=== PATIENT | male | born 1950 | race Caucasian/White ===

== ENCOUNTER 2019-06-20 14:51 | Outpatient (CLI) | payer MEDICARE, SELFPAY ==
--- NOTE | ~2019-06-20 | XR_ITS ---
EXAMINATION: XR lumbar spine 2-3V EXAM DATE: 06/20/2019 15:27 INDICATION: Dorsalgia, low back pain, symptoms one month. TECHNIQUE: Lumber spine frontal, lateral, lateral L5-S1 projections for interpretation. There is no prior study for comparison. FINDINGS: There is moderate to severe disc disease at L2-3, moderate at L1-2, mild to moderate at th e lower lumbar levels. There is advanced lower lumbar facet arthropathy. Mild thoracolumbar scoliosis . Sacrum, sacroiliac joints, sacral arcuate lines are intact. Paraspinal soft tissue is unremarkable. IMPRESSION: 1. Advanced disc disease L2-3. 2. Advanced lower lumbar facet arthropathy. Reviewed, dictated and finalized at location A.
== END 2019-06-20 14:52 | disposition home or self-care (01) ==
PROVIDERS: PCP Internal Medicine; Visit Provider Internal Medicine
DX: M54.9 Dorsalgia, unspecified (principal); M51.86 Other intervertebral disc disorders, lumbar region; M12.88 Other specific arthropathies, not elsewhere classified, other specified site
CPT/HCPCS: 72100

== ENCOUNTER 2019-06-23 14:20 | Outpatient (CLI) | payer MEDICARE, SELFPAY ==
--- NOTE | ~2019-06-23 | US_ITS ---
EXAMINATION: US soft tissue lower back DATE: 06/23/2019 14:49 INDICATION: Palpable lump with associated erythema at the right lower back TECHNIQUE: Multiple grayscale and Doppler ultrasound images of the region of concern at the right low er back were obtained. COMPARISON: None FINDINGS: There is a 1.3 x 1.0 x 1.5 cm hypoechoic region with lobular margins in the subcutaneous fat at the r egion of concern. The lesion demonstrates posterior acoustic enhancement. There is increased vascular flow on color Doppler surrounding but not within the lesion. IMPRESSION: 1. 1.3 x 1.0 x 1.5 cm complex cystic lesion in the subcutaneous tissues at the region of concern whic h given the associated hyperemia and erythema favors a small abscess over either hematoma or epidermo id cyst. Reviewed, dictated and finalized at location A. IMPRESSION: 1. 1.3 x 1.0 x 1.5 cm complex cystic lesion in the subcutaneous tissues at the region of concern which given the associated hyperemia and erythema favors a sm all abscess over either hematoma or epidermoid cyst.
== END 2019-06-23 14:21 | disposition home or self-care (01) ==
PROVIDERS: PCP Internal Medicine; Visit Provider Internal Medicine
DX: M79.89 Other specified soft tissue disorders (principal)
CPT/HCPCS: 76705

== ENCOUNTER 2020-05-11 14:51 | Observation (INO) | payer MEDICARE, SELFPAY ==
[2020-05-11] VITALS (17 sets, daily range): BP systolic 116–170; BP diastolic 74–99; PULSE 54–74; RESP 15–22; TEMP 35.7–36.3; O2SAT 94–98; BMI 29.5
--- NOTE | ~2020-05-11 | XR_ITS ---
EXAMINATION: XR chest 2V EXAM DATE: 05/11/2020 15:20 INDICATION: Midsternal chest pain for 2 days. TECHNIQUE: Frontal and lateral projections of the chest obtained and reviewed. There is no prior radha dy for comparison. FINDINGS: The lungs are clear. There are no pleural effusions. The cardiomediastinal silhouette is within normal limits. There is no pneumothorax suspected. Moderate-sized mid thoracic endplate brid ging osteophytes, diffuse idiopathic skeletal hyperostosis. IMPRESSION: No acute cardiopulmonary findings. Reviewed, dictated and finalized at location A.
--- NOTE | ~2020-05-11 | NM_ITS ---
EXAMINATION: NM jero stress w perfusion DATE: 05/13/2020 13:56 INDICATION: Atypical chest pain TECHNIQUE: Rest images were obtained in supine following intravenous administration of 10.5 mCi Tc99m tetrofosmin (Myoview). The patient was infused intravenously with Lexiscan (Regadenoson). Then, 32 m Ci Tc99m tetrofosmin (Myoview) was administered intravenously, and stress images were obtained and vargas pine position. Additional prone post stress images were obtained. Data was reconstructed into short a xis and horizontal and vertical long axis SPECT images. Gated SPECT images were also obtained. COMPARISON: None. FINDINGS: There is no definite reversible or fixed perfusion abnormality to suggest ischemia or infar ction. There is normal left ventricular chamber size, wall motion and ejection fraction. Left ventr icular ejection fraction measures >70%. IMPRESSION: 1. Normal myocardial perfusion at rest and during stress. 2. Left ventricular ejection fraction measuring >70%. Reviewed, dictated and finalized at location A.
--- NOTE | 2020-05-11 15:01 | ECG_ITS ---
Measurements Intervals [place] Rate: 66 P: 48 NC: 170 QRS: 32 QRSD: 110 T: 45 QT: 399 QTc: 421 Interpretive Statements SINUS RHYTHM VOLTAGE CRITERIA FOR LVH MINIMAL Q WAVES- INFERIOR LEADS BASELINE WANDER- III, AVF, V2 BORDERLINE ECG Electronically Signed On 05-11-2020 15:21:18 CDT by Tobin Crawford D.O.
[2020-05-11 15:18] LABS: Basophils Percent Auto 0.4 % (0.2-1.2); Eosinophils Absolute Auto 0.2 K/mm3 (0-0.3); Eosinophils Percent Auto 3.8 % (0-4.4); Hematocrit 39.1 % (42.0-52.0); Hemoglobin 13.2 g/dL (14.0-18.0); Immature Granulocyte Absolute 0.02 K/mm3 (0.00-0.031); Immature Granulocyte Percent A 0.4 % (0-0.5); Lymphocytes Absolute Auto 1.11 K/mm3 (0.9-3.2); Mean Corpuscular HGB Conc 33.8 g/dl (32-36); Mean Corpuscular Hemoglobin 31.7 pg (26-34); Mean Corpuscular Volume 93.8 fl (80-100); Mean Platelet Volume 9.7 fl (7.4-10.4); Monocytes Absolute Auto 0.5 K/mm3 (0.1-0.6); Monocytes Percent Auto 8.8 % (2.6-8.5); Neutrophils Absolute Auto 3.7 K/mm3 (1.3-6.7); Neutrophils Percent Auto 66.6 % (45.5-73.1); Platelet Count Result 216 k/mm3 (150-375); Red Blood Count 4.17 M/mm3 (4.6-6.20); Red Cell Distribution Width 12.8 % (11.5-14.5); White Blood Count 5.6 K/mm3 (4.5-10.0)
[2020-05-11 15:28] LABS: INR 0.9; Prothrombin Time 12.5 Seconds (11.1-14.7)
[2020-05-11 15:29] LABS: Partial Thromboplastin Time 29.3 SECONDS (22.3-36.8)
[2020-05-11 15:30] LABS: Anion Gap 8 mmol/L (8-16); Blood Urea Nitrogen 27 mg/dL (9-20); Calcium 8.6 mg/dL (8.4-10.2); Carbon Dioxide 25 mmol/L (22-30); Chloride 107 mmol/L (98-107); Estimated CRCL calculation 53 ml/min; Estimated Glomerular Filt Rate 54; Glucose 140 mg/dL (75-110); Potassium 3.7 mmol/L (3.4-5.0); Sodium 140 mmol/L (137-145)
--- NOTE | 2020-05-11 15:32 | ED.CHESTPAIN ---
HPI - Chest Pain General Chief Complaint: Chest Pain Stated Complaint: CHEST PAIN Time Seen by Provider: 05/11/20 15:21 Source: patient, family and RN notes reviewed Mode of arrival: ambulatory Limitations: no limitations History of Present Illness HPI narrative: Patient 70 years old white male presents with retrosternal pressure type pain started yesterday at noon, intermittent, denies any aggravating or relieving factors, comes at rest and usually last for hours. Patient denying having similar symptoms. Patient denies shortness of breath. Currently the pain is 5 out of 10. Patient denies radiation of pain or shortness of breath. Patient denies any fever, chills, nausea, vomiting. Patient reports some stress at home because his [id number] 2 years ago. Related Data Allergies Allergy/AdvReac Type Severity Reaction Status Date / Time No Known Allergies Allergy Verified 05/11/20 15:07 Review of Systems Review of Systems: Narrative: CONSTITUTIONAL: Denies fever, chills, or sweats. EYES: Denies visual changes, redness, or discharge. ENT: Denies rhinorrhea, congestion, sore throat, or otalgia. CARDIOVASCULAR: Denies chest pain, palpitations, or edema. RESPIRATORY: Denies cough or dyspnea. GASTROINTESTINAL: Denies abdominal pain, nausea, vomiting, or diarrhea. GENITOURINARY: Denies dysuria or hematuria. SKIN: Denies rash or itching. MUSCULOSKELETAL: Denies back pain, joint pain, or myalgia. NEUROLOGIC: Denies headache, numbness, or weakness. PSYCHIATRIC: Denies anxiety or depression. [facility] Past Medical History Medical History (Updated 05/11/20 @ 15:44 by Lex Buchanan MD) History of blood transfusion History of stomach cancer Surgical History Surgical History H/O inguinal hernia repair x2 History of surgery for malignant neoplasm of the stomach Hx of cataract surgery Family History Family History Mother Hypertension Father Family history of malignant neoplasm of thyroid Social History Social History Smoking status: Former smoker Second hand tobacco smoke exposure: No Smoking end date: 02/16/08 Alcohol intake: current Substance use: never Gender identity (if verbalized by the patient): Male Exam Narrative: Exam Narrative: General appearance: Well-developed, well-nourished Skin: Normal color Head: Normocephalic, nontraumatic Eyes: Clear conjunctiva ENT: Oropharynx normal, ears normal, nose normal Neck: Supple, nontender Chest and respiratory: Airway patent, no respiratory distress, no accessory muscle use Heart: Regular rate/rhythm Abdomen: Soft, nontender, no organomegaly, quiet bowel sounds Vascular: Normal peripheral pulses, normal capillary refill. Musculoskeletal: Normal range of motion, nontender back Neurologic: Alert and oriented ?3, CONSERVATION TECHNICIAN is normal as tested, no gross motor deficit Course Course Emergency Course: Stable Consultations Consultation #1: DR PIMENTEL Admit to Dr. Neumann Date: 05/11/20 Time: 16:25 Vital Signs Vital signs: Vital Signs Pulse Rate 68 05/11/20 15:00 Respiratory Rate 21 H 05/11/20 15:00 Blood Pressure 170/99 H 05/11/20 15:00 Pulse Oximetry 98 05/11/20 15:00 Temperature 35.7 C L 05/11/20 15:02 Pulse Rate 65 05/11/20 15:16 Respiratory Rate 22 H 05/11/20 15:15 Blood Pressure 163/90 H 05/11/20 15:02 Pulse Oximetry 97 05/11/20 15:15 MDM - Chest Pain MDM Narrative Medical decision making narrative: Patient presents with chest pain, cardiac score is 4, patient is [id number] moved in with them
[2020-05-11 15:41] LABS: Troponin I < 0.012 ng/mL (0.000-0.034)
[2020-05-11] MEDS: NITROGLYCERIN SL 0.4 MG TABLET SUBLINGUAL ×2 (15:58→16:05)
--- NOTE | 2020-05-11 16:10 | PC.NURSE ---
Pt given 2 doses of SL nitro tabs. After 1st tab, pt denied change in chest pain. After 2nd tab, pt reports pain may be a little bit worse . ED MD notified.
--- NOTE | 2020-05-11 16:49 | PC.NURSE ---
2x doses of nitro tabs SL. pt c/o worsening pain after 2nd nitro tab. md notified.
--- NOTE | 2020-05-11 17:27 | PC.NURSE ---
pt to IMU Room 214
--- NOTE | 2020-05-11 17:46 | ADMGEN ---
This patient, Zechariah Velez, was admitted to IMU Room 214-01. Patient/family oriented to hospital policies and general routines including ID bracelet, bed and alarms, visiting hours, pain management, procedures, bathroom and other care routines, personal items, smoking policy, room service/diet, and visiting hours. Information on how to activate the Rapid Response Team has been discussed. Patient/Family are encouraged to report perceived risks to care and to ask questions if they do not understand what they are told or what they should do.
[2020-05-11 18:34] LABS: Troponin I < 0.012 ng/mL (0.000-0.034)
[2020-05-11 21:26] LABS: Troponin I < 0.012 ng/mL (0.000-0.034)
[2020-05-11] MEDS: PROPRANOLOL HCL 40 MG TABLET PO (22:36)
[2020-05-11] MEDS: DICLOFENAC SOD 75 MG TABLET.EC PO (22:36)
[2020-05-12] VITALS (20 sets, daily range): BP systolic 138–175; BP diastolic 76–99; PULSE 47–68; RESP 12–18; TEMP 36.2–36.8; O2SAT 95–100
--- NOTE | 2020-05-12 06:00 | ECG_ITS ---
Measurements Intervals [place] Rate: 61 P: 68 IN: 170 QRS: 48 QRSD: 97 T: 57 QT: 414 QTc: 418 Interpretive Statements SINUS RHYTHM NORMAL ECG Electronically Signed On 05-12-2020 16:25:10 CDT by Tobin Crawford D.O.
[2020-05-12] MEDS: DICLOFENAC SOD 75 MG TABLET.EC PO ×2 (08:01→16:02)
[2020-05-12] MEDS: ASPIRIN 81 MG CHEWABLE TABLET PO (08:01)
[2020-05-12] MEDS: PROPRANOLOL HCL 40 MG TABLET PO (08:01)
--- NOTE | 2020-05-12 10:21 | ECG_ITS ---
Measurements Intervals [place] Rate: 46 P: 60 RI: 172 QRS: 30 QRSD: 93 T: 46 QT: 438 QTc: 386 Interpretive Statements SINUS BRADYCARDIA BASELINE ARTIFACT- II, III, AVF ABNORMAL ECG Electronically Signed On 05-12-2020 16:25:41 CDT by Tobin Crawford D.O.
--- NOTE | 2020-05-12 10:23 | PC.NURSE ---
Notified Dr. Neumann of patient having chest/arm pain. Verbal order for 12 lead EKG to be obtained, vital signs- BP- 165/99 HR- 49. EKG taken and Dr. Neumann stated it was normal and at bedside evaluating patient.
--- NOTE | 2020-05-12 10:33 | PM.IMHP ---
H&P: HPI History of Present Illness Date/Time: 05/12/20 10:33 Chief Complaint: Chest pain Narrative: Date of service 05/12/2020 Reason for admission chest pain History: Patient is a 70-year-old male who has been having 2 days worth of chest pain. He has no known cardiac history and has very few risk factors for coronary disease either. Two days ago though he started to develop some anterior chest discomfort described as heaviness. It did not radiate nor associated with other symptoms. It lasted for couple hours and went away after taking a diclofenac. It occurred while sitting around. This was after a that he took his mother to. Yesterday he however woke up with similar discomfort. He describes it as a heaviness again. He again took diclofenac without much relief at that point. After several hours he decided to come to the hospital for further evaluation. EKGs were unremarkable. Troponins are negative x3. He was given nitroglycerin without any relief. He then was given another diclofenac which did help his symptoms. He was able to rest the remainder of the evening last night. Today however he has again redeveloped some heaviness in the chest. Today the discomfort is going into the right arm. EKG recently performed showing sinus bradycardia otherwise normal. Symptoms this morning was helped by diclofenac and IV Tylenol. Again no other symptoms of nausea shortness of breath or diaphoresis. He has no exertional symptoms recently. He denies any syncope, presyncope, paroxysmal nocturnal dyspnea, orthopnea, edema or palpitations or shortness of breath. Review of Systems Review of Systems: All systems reviewed & are unremarkable except as noted in HPI and below Constitutional: Constitutional: Denies weakness Eyes: Eyes: Denies blurry vision ENT: Reports Normal hearing present Cardiovascular: Cardiovascular: Reports chest pain Respiratory: Respiratory: Denies dyspnea Gastrointestinal: Gastrointestinal: Denies abdominal pain Genitourinary: Genitourinary: Denies dysuria and Denies urinary frequency Musculoskeletal: Musculoskeletal: Denies back pain and Denies neck pain Integumentary/Breasts: Skin/Breast: Denies dry skin and Denies unusual bruising Neurologic: Denies headache(s) Psychiatric: Psychiatric: Denies anxiety and Denies confusion Endocrine: Endocrine: Denies change in body appearance Hematologic/Lymphatic: Hematologic/Lymphatic: Denies easy bleeding Allergic/Immunologic: Allergic/Immunologic: Denies GI upset with certain foods PMFSH Past Medical History Medical History (Updated 05/12/20 @ 10:42 by Andrea Neumann MD) History of blood transfusion History of stomach cancer Surgical History Surgical History H/O inguinal hernia repair x2 History of surgery for malignant neoplasm of the stomach Hx of cataract surgery Family History Family History Mother Hypertension Father Family history of malignant neoplasm of thyroid Social History Social History Smoking status: Never smoker Second hand tobacco smoke exposure: No Smoking end date: 02/16/08 Alcohol intake: current Drinks per week: 14 Substance use: never Substance use type: does not use Gender identity (if verbalized by the patient): Male Spiritual care concerns: No Meds Home Medications and Allergies Home Medications Medication Instructions Recorded Confirmed Type diclofenac sodium 75 mg 75 mg PO BID #180 tablet 01/30/20 05/11/20 Rx tablet,delayed release propranolol 80 mg capsule,24 80 mg PO DAILY #90 cap 04/16/20 05/11/20 Rx hr,extended release Allergies Allergy/AdvReac Type Severity Reaction Status Date / Time No Known Allergies Allergy Verified 05/11/20 15:07 Vital Signs Vital Signs - 24 hr 05/11/20
[2020-05-12] MEDS: ENOXAPARIN 40 MG/0.4 ML SYRINGE SUB-Q (11:17)
[2020-05-12] MEDS: LOSARTAN POTASSIUM 25 MG TABLET PO (11:17)
[2020-05-12] MEDS: PANTOPRAZOLE 40 MG TABLET PO (11:17)
[2020-05-12] MEDS: BELLADONNA ALK/PHENOB ELIX 10 ML, MAG HYDROX/ALUMINUM HYD/SIMETH 30 ML, LIDOCAINE HCL 2... PO (11:18)
[2020-05-12 11:32] LABS: Troponin I < 0.012 ng/mL (0.000-0.034)
--- NOTE | 2020-05-12 15:01 | PC.NURSE ---
Notified Dr. Neumann of pts HR hitting 48. No new orders were received. Will continue to monitor pt HR.
[2020-05-13] VITALS (12 sets, daily range): BP systolic 140–173; BP diastolic 76–97; PULSE 51–78; RESP 16–20; TEMP 35.9–36.4; O2SAT 96–100
--- NOTE | 2020-05-13 | EST_ITS ---
Patient Info Name: Zechariah Velez Age: 70 years : 1950 Gender: Male Ht: 74 in Wt: 229 lbs BSA: 2.35 m2 Exam Date: 05/13/2020 12:51 PM Exam Location: [facility] Stress Patient Status: Inpatient Admit Date: 05/11/2020 Staff Ordering Physician: Andrea Neumann MD Attending Provider: Andrea Neumann MD Exercise Technologist: Jaylene Verma RDCS Exercise Physician: Andrea Neumann MD Exam Type: CA stress jero w NM Study Info Indications R07.9 - Chest pain, unspecified A regadenoson stress test was performed. Summary 1. One PVC. 2. Please correlate with nuclear medicine images, reported separately. 3. No abnormal ST-T wave changes with lexiscan. Protocol: Lexiscan Stress ECG Details Stage: REST Duration (min): 1 min : 40 sec HR (bpm): 62 SBP (mmHg): 208 DBP (mmHg): 117 Stage: REST Duration (min): 5 min : 23 sec HR (bpm): 66 SBP (mmHg): 208 DBP (mmHg): 117 Stage: STAGE 1 Duration (min): 1 min : 0 sec HR (bpm): 87 SBP (mmHg): 208 DBP (mmHg): 117 Stage: RECOVERY Duration (min): 1 min : 0 sec HR (bpm): 85 SBP (mmHg): 205 DBP (mmHg): 86 Stage: RECOVERY Duration (min): 2 min : 0 sec HR (bpm): 77 SBP (mmHg): 188 DBP (mmHg): 85 Stage: RECOVERY Duration (min): 3 min : 0 sec HR (bpm): 76 SBP (mmHg): 175 DBP (mmHg): 94 Stage: RECOVERY Duration (min): 3 min : 3 sec HR (bpm): 76 SBP (mmHg): 175 DBP (mmHg): 94 Rest HR: 66 bpm Peak HR: 94 bpm Rest Sys BP: 208 mmHg Peak Sys BP: 205 mmHg Max Pred HR: 148 bpm % Max Pred HR: 64 % Target HR: 126 bpm Max RPP: 19,270 bpm*mmHg Target HR Summary: Hemodynamic response to exercise was normal BP Response: Patient exhibited a hypertensive response with stress Termination Reason: Completed protocol Cardiac Symptoms: None Total Time: 1 min : 0 sec Rest [place] BP: 117 mmHg Peak [place] BP: 86 mmHg Total Dose: 0.4 mg Resting ECG Normal sinus rhythm - normal ECG. Stress ECG No abnormal ST/T wave changes with exercise. Arrhythmias One PVC. Report Signatures
--- NOTE | 2020-05-13 | ECHO_ITS ---
Patient Info Name: Zechariah Velez Age: 70 years : 1950 Gender: Male Ht: 74 in Wt: 226 lbs BSA: 2.33 m2 HR: 61 bpm BP: 145 / 76 mmHg Heart Rhythm: Sinus Rhythm Technical Quality: Good Exam Date: 05/13/2020 8:22 AM Exam Location: [facility] Pulmonary Patient Status: Inpatient Admit Date: 05/11/2020 Staff Ordering Physician: Andrea Neumann MD Fine Grade Operator: Bryson Barnes RDCS, RT Attending Provider: Andrea Neumann MD Referring Physician: Thien ALFORD; Exam Type: CA echo doppler color flow Study Info Indications R07.89 - Other chest pain Complete two-dimensional, color flow and Doppler transthoracic echocardiogram is performed. Strain analysis performed. Summary 1. Complete two-dimensional, color flow and Doppler transthoracic echocardiogram is performed. 2. Strain analysis performed. 3. Left ventricular chamber dimension is normal. 4. Left ventricular systolic function is normal, estimated at 55-60%. 5. There is mildly increased left ventricular wall thickness. 6. The left ventricular diastolic function is grade I diastolic dysfunction. 7. Global longitudinal strain is normal at -19 %. 8. Left atrial chamber dimension is mildly enlarged. 9. There is mild mitral valve regurgitation. 10. There is mild tricuspid valve regurgitation. Left Ventricle Left ventricular chamber dimension is normal. Left ventricular systolic function is normal, estimated at 55-60%. There is mildly increased left ventricular wall thickness. The left ventricular diastolic function is grade I diastolic dysfunction. Global longitudinal strain is normal at -19 %. Right Ventricle Right ventricular chamber dimension is normal. Right ventricular systolic function is normal. Left Atria Left atrial chamber dimension is mildly enlarged. Right Atria Right atrial chamber dimension is normal. Atrial Septum Intact interatrial septum visualized by color flow imaging. Aortic Valve The aortic valve is trileaflet. There is mild aortic valve sclerosis. There is no aortic valve stenosis. There is trace aortic valve regurgitation. Pulmonic Valve The pulmonic valve is normal. There is no pulmonic valve stenosis. There is trace pulmonic regurgitation. Mitral Valve The mitral valve has normal leaflets. There is no mitral valve stenosis. There is mild mitral valve regurgitation. Tricuspid Valve The tricuspid valve leaflets are normal. There is no significant tricuspid valve stenosis. There is mild tricuspid valve regurgitation. No pulmonary hypertension, estimated pulmonary arterial systolic pressure is 30 mmHg. Pericardium/Pleural The pericardium appears normal. There is no pericardial effusion. Inferior Vena Cava Normal inferior vena cava with >50% collapse upon inspiration consistent with normal right atrial pressure, 5 mmHg. Aorta The aortic root size at the sinus of Valsalva is normal. The prox ascending aorta size is normal. Left Ventricular Outflow Tract Name Value Normal LVOT 2D LVOT Diameter 2.0 cm LVOT Doppler LVOT Peak Gradient 4 mmHg
[2020-05-13] MEDS: ASPIRIN 81 MG CHEWABLE TABLET PO (08:57)
[2020-05-13] MEDS: ENOXAPARIN 40 MG/0.4 ML SYRINGE SUB-Q (08:57)
[2020-05-13] MEDS: LOSARTAN POTASSIUM 25 MG TABLET PO (08:57)
[2020-05-13] MEDS: PANTOPRAZOLE 40 MG TABLET PO (08:57)
[2020-05-13] MEDS: DICLOFENAC SOD 75 MG TABLET.EC PO ×2 (08:57→17:29)
--- NOTE | 2020-05-13 13:11 | PM.PNCARD ---
Progress Note: A&P Assessment and Plan (1) Chest pain: Qualifiers: Chest pain type: unspecified Qualified Code(s): R07.9 - Chest pain, unspecified Code(s): R07.9 - Chest pain, unspecified Status: Acute Assessment and Plan: will await stress test and echocardiogram results. (2) Essential (primary) hypertension: Code(s): I10 - Essential (primary) hypertension Status: Acute Assessment and Plan: DC propanolol. Will start amlodipine 5 mg daily 1st dose now. May need up titration to his antihypertensive regimen. because of his marked hypertension and continued symptoms, patient is unlikely to go home today. Need to make sure that his blood pressure is reasonably controlled before discharge (3) Pure hypercholesterolemia: Code(s): E78.00 - Pure hypercholesterolemia, unspecified Status: Acute (4) Hx of malignant gastrointestinal stromal tumor (GIST): Code(s): Z85.09 - Personal history of malignant neoplasm of other digestive organs Status: Acute Assessment and Plan: History of GI malignancy (5) Hypokalemia: Code(s): E87.6 - Hypokalemia Status: Acute Assessment and Plan: Repeat BMP in morning Subjective Date/time seen: 05/13/20 13:11 Interval history: 70-year-old admitted for chest pain Date of service 05/13/2020: He still has some residual right arm discomfort. He also has had some bradycardia and his propanolol has been stopped due to severe bradycardia into the low 40s. blood pressure is not markedly elevated above 200 over 110. No shortness of breath Review of Systems Review of Systems: All systems reviewed & are unremarkable except as noted in HPI and below Constitutional: Constitutional: Denies headache(s) and Denies weakness Eyes: Eyes: Denies blurry vision ENT: Reports Normal hearing present, Denies headache(s) and Denies neck pain Cardiovascular: Cardiovascular: Reports chest pain and Denies dyspnea Respiratory: Respiratory: Denies dyspnea Gastrointestinal: Gastrointestinal: Denies abdominal pain Genitourinary: Genitourinary: Denies dysuria and Denies urinary frequency Musculoskeletal: Musculoskeletal: Denies back pain and Denies neck pain Integumentary/Breasts: Skin/Breast: Denies dry skin and Denies unusual bruising Neurologic: Reports Normal hearing present, Denies confusion, Denies headache(s) and Denies weakness Psychiatric: Psychiatric: Denies anxiety and Denies confusion Endocrine: Endocrine: Denies change in body appearance Hematologic/Lymphatic: Hematologic/Lymphatic: Denies easy bleeding Allergic/Immunologic: Allergic/Immunologic: Denies GI upset with certain foods Exam Narrative: Exam Narrative: Alert oriented, appears in no acute distress. Pleasant and appropriate and appears stated age Const: General: comfortable and no acute distress; No confusion Orientation/consciousness: No confusion HENMT: General nose exam: Normal nares present Eyes: Sclera: sclerae normal Neck: Neck: supple and no JVD Chest: Other: No reproducible chest wall pain to palpation Resp: Auscultation: clear to auscultation bilaterally Cardio: Rate: regular rate Rhythm: regular rhythm Heart sounds: Murmur heart sound present Skin: General skin exam: normal color Neuro: General: No confusion Cranial nerves: Yes Normal hearing present Cognition (Neuro): normal cognition Speech: normal speech Extrem: General: normal to inspection Psych: Mental Status: mental status grossly normal Objective Data Vital Signs Vital Signs: Vital Signs - 24 hr 05/12/20 14:00 05/12/20 16:00 05/12/20 16:06 Temperature 36.3 C L Pulse Rate 47 L 48 L 49 L Respiratory Rate 16 Blood Pressure 148/84 H Pulse Oximetry 98 05/12/20 18:47 05/12/20 20:00 05/12/20 22:00 Temperature 36.6 C Pulse Rate 55 L 55 L 50 L Respiratory Rate 12 Blood Pressure 138/76 Pulse Oximetry 98 98 04/16
[2020-05-13] MEDS: amLODIPine BESYLATE 5 MG TABLET PO (14:51)
[2020-05-14] VITALS: BP 151/84; PULSE 63; PULSE 65; RESP 20; TEMP 36.4; O2SAT 94
[2020-05-14 02:00] VITALS: PULSE 66
[2020-05-14 04:00] VITALS: BP 141/88; PULSE 59; PULSE 63; RESP 20; TEMP 36.3; O2SAT 94; O2SAT 98
[2020-05-14 05:17] LABS: Anion Gap 5 mmol/L (8-16); Blood Urea Nitrogen 21 mg/dL (9-20); Calcium 8.3 mg/dL (8.4-10.2); Carbon Dioxide 31 mmol/L (22-30); Chloride 105 mmol/L (98-107); Estimated CRCL calculation 58 ml/min; Estimated Glomerular Filt Rate 60; Glucose 108 mg/dL (75-110); Potassium 3.5 mmol/L (3.4-5.0); Sodium 141 mmol/L (137-145)
[2020-05-14 06:00] VITALS: PULSE 61
[2020-05-14 08:00] VITALS: BP 146/83; PULSE 72; PULSE 74; RESP 18; TEMP 36.5; O2SAT 98
[2020-05-14] MEDS: PANTOPRAZOLE 40 MG TABLET PO (08:46)
[2020-05-14] MEDS: DICLOFENAC SOD 75 MG TABLET.EC PO (08:46)
[2020-05-14] MEDS: LOSARTAN POTASSIUM 25 MG TABLET PO (08:46)
[2020-05-14] MEDS: amLODIPine BESYLATE 5 MG TABLET PO (08:47)
[2020-05-14] MEDS: ASPIRIN 81 MG CHEWABLE TABLET PO (08:47)
[2020-05-14] MEDS: ENOXAPARIN 40 MG/0.4 ML SYRINGE SUB-Q (08:47)
--- NOTE | 2020-05-14 09:40 | PM.DS ---
DS: Admitting Diagnosis Admitting Diagnosis Admitting Diagnosis: Chest pain DS: Discharge Diagnosis Discharge Diagnosis (1) Chest pain: Qualifiers: Chest pain type: unspecified Qualified Code(s): R07.9 - Chest pain, unspecified Code(s): R07.9 - Chest pain, unspecified Status: Acute (2) Essential (primary) hypertension: Code(s): I10 - Essential (primary) hypertension Status: Acute (3) Essential tremor: Code(s): G25.0 - Essential tremor Status: Acute DS: Summary Hospital Course Reason for hospitalization: Chest pain Hospital Course: Patient is a 70-year-old male who was admitted with chest pain. Chest pain was quite atypical. It did radiate to his right arm and shoulder at times. It would last for hours at a time though in usually improved with diclofenac. It did not get better with nitroglycerin. He did rule out for myocardial infarction any underwent a stress test as well as a echocardiogram which were both unremarkable. His blood pressure did spike up significantly of over 200/110 which did delay discharge for an additional day as other medications were initiated. He was significantly bradycardic on propanolol and so this was stopped and his blood pressure regimen was switched to losartan 25 mg p.o. daily as well as amlodipine 5 mg daily. Blood pressures upon discharge around 140s systolic. He was feeling fine upon discharge in comfortable with going home and following up with Dr. Busch Status at Discharge Cognitive/behavioral status at discharge: Good stable Functional status at discharge: independent ambulation Overall status at discharge: patient is back to baseline Time Spent with Patient Time attestation: Total time spent providing and/or coordinating discharge services: Time spent: Greater than 30 minutes Exam Narrative: Exam Narrative: Alert oriented, appears in no acute distress. Pleasant and appropriate and appears stated age Const: General: comfortable and no acute distress; No confusion Orientation/consciousness: No confusion HENMT: General nose exam: Normal nares present Eyes: Sclera: sclerae normal Neck: Neck: supple and no JVD Chest: Other: No reproducible chest wall pain to palpation Resp: Auscultation: clear to auscultation bilaterally Cardio: Rate: regular rate Rhythm: regular rhythm Heart sounds: Murmur heart sound present GI: GI Palp: Yes Soft to palpation Skin: General skin exam: normal color Neuro: General: No confusion Cranial nerves: Yes Normal hearing present Cognition (Neuro): normal cognition Speech: normal speech Motor exam (neuro): Normal motor muscle tone present throughout Extrem: General: normal to inspection Psych: Mental Status: mental status grossly normal DS: Data Data Completed and Pending Labs on day of discharge: Labs from last 24 hours 05/14/20 04:43 Sodium 141 Potassium 3.5 Chloride 105 Carbon Dioxide 31 H Anion Gap 5 L BUN 21 H Creatinine 1.20 Estim Creat Clear Calc 58 Estimated GFR 60 Glucose 108 Calcium 8.3 L Discharge Plan Discharge Attending physician on discharge: Andrea Neumann Discharging Clinician: Andrea Neumann Anticipated Discharge Date/Time: 05/14/20 09:34 Patient Disposition: Home, Self-Care Activity: no shower Diet: low sodium Discharge Instructions: Progressive ambulation. Should follow-up with his primary care provider within 1 week and follow up in our office within 2-4 weeks. He has any significant recurrent chest pain, shortness of breath, fevers, chills or any other worrisome signs or symptoms she come back to the hospital either via ambulance or call the office for further instruction Patient Instructions: Antibiotic Form Stand Alone Forms: General Discharge Information Follow-up/Referrals: Andrea Neumann MD [Physician] - Neel Busch DO [Primary Care Provider] - 1 Week Discharge Medications: New
[2020-05-14 10:00] VITALS: PULSE 65
== END 2020-05-14 11:24 | disposition home or self-care (01) ==
LOC: ANHED 16:39 → ANHIMU 16:53
PROVIDERS: Admitting Provider Internal Medicine Cardiovascular Disease; Emergency Provider Emergency Medicine; PCP Internal Medicine; Visit Provider Internal Medicine Cardiovascular Disease
DX: R07.9 Chest pain, unspecified (principal); I10 Essential (primary) hypertension; G25.0 Essential tremor; E78.00 Pure hypercholesterolemia, unspecified; E87.6 Hypokalemia; I49.3 Ventricular premature depolarization; I34.0 Nonrheumatic mitral (valve) insufficiency; I36.1 Nonrheumatic tricuspid (valve) insufficiency; Z85.028 Personal history of other malignant neoplasm of stomach; Z87.891 Personal history of nicotine dependence
CPT/HCPCS: 36415; 71046; 78452; 80048; 84484; 85025; 85610; 85730; 93005; 93017; 93306; 96372; 96374; 99285; A9270; A9502; G0378; J0131; J1650; J2785

== ENCOUNTER 2020-05-15 10:20 | Emergency (ER) | payer MEDICARE, SELFPAY ==
[2020-05-15 10:28] VITALS: BP 156/93; PULSE 76; RESP 16; TEMP 36.4; O2SAT 98
--- NOTE | 2020-05-15 10:53 | ED.GENADULT ---
HPI - General Adult General Chief complaint: Extremity Injury, Upper Stated complaint: My index finger is weak Time Seen by Provider: 05/15/20 10:25 Source: patient Mode of arrival: ambulatory Limitations: no limitations History of Present Illness HPI narrative: Patient presents for evaluation after noticing yesterday that he is having some decreased range of motion in his right index finger. Patient states he generally has a benign tremor in his left hand but does not normally have any tremors or decreased range of motion in his right hand. He denies tingling or decreased sensation. He denies speech changes, unilateral weakness to his upper or lower extremities otherwise, chest pain, shortness of breath or any other correlating symptoms. Patient states he was evaluated for cardiac issues and had echo and stress test performed due to some chest pain he was having a few days ago so he wanted to be evaluated just to make sure that this was not a concerning finding. Patient denies any direct trauma to the finger. He denies any other symptoms or concerns. Related Data Allergies Allergy/AdvReac Type Severity Reaction Status Date / Time No Known Allergies Allergy Verified 05/15/20 10:32 Review of Systems Review of Systems: Narrative: CONSTITUTIONAL: Denies fever, chills, or sweats. EYES: Denies visual changes, redness, or discharge. ENT: Denies rhinorrhea, congestion, sore throat, or otalgia. CARDIOVASCULAR: Denies chest pain, palpitations, or edema. RESPIRATORY: Denies cough or dyspnea. GASTROINTESTINAL: Denies abdominal pain, nausea, vomiting, or diarrhea. GENITOURINARY: Denies dysuria or hematuria. SKIN: Denies rash or itching. MUSCULOSKELETAL: Reports right index finger decreased ROM. Denies back pain, joint pain, or myalgia. NEUROLOGIC: Denies headache, numbness, dizziness, or weakness. PSYCHIATRIC: Denies anxiety or depression. [facility] Past Medical History Medical History (Updated 05/15/20 @ 10:59 by Neelam George PA-C) History of blood transfusion History of stomach cancer Surgical History Surgical History H/O inguinal hernia repair x2 History of surgery for malignant neoplasm of the stomach Hx of cataract surgery Family History Family History Mother Hypertension Father Family history of malignant neoplasm of thyroid Social History Social History Smoking status: Never smoker Second hand tobacco smoke exposure: No Smoking end date: 02/16/08 Alcohol intake: current Drinks per week: 14 Substance use: never Substance use type: does not use Gender identity (if verbalized by the patient): Male Spiritual care concerns: No Exam Narrative: Exam Narrative: GENERAL: Well-appearing, well-nourished. HEAD: Normocephalic, atraumatic. Facial asymmetry without any drooping or unilateral deficit. EYES: PERRLA and EOMI. NECK: Supple. No adenopathy or masses. No vertebral tenderness or loss of ROM. CHEST: Clear to auscultation. No respiratory distress. No wheezes rales or rhonchi HEART: Regular rate and rhythm. Normal peripheral pulses. EXTREMITIES: No edema, erythema or ecchymosis. Patient has sensation equally around the right index finger. Patient has decreased flexion in the DIP of right digit. There is no bony tenderness or pain. There is no outward signs of trauma or injury. SKIN: Warm, dry, no rash. NEURO: No focal deficits. Alert and oriented x3. PSYCH: Normal mood and affect. Course Vital Signs Vital signs: Vital Signs Temperature 97.6 F 05/15/20 10:28 Pulse Rate 76 05/15/20 10:28 Respiratory Rate 16 05/15/20 10:28 Blood Pressure 156/93 H 05/15/20 10:28 Pulse Oximetry 98 05/15/20 10:28 Temperature 97.6 F 05/15/20 10:28 Pulse Rate 76 05/15/20 10:28 Respiratory Rate 16 05/15/20 10:28
[2020-05-15 11:51] VITALS: RESP 16
== END 2020-05-15 11:52 | disposition home or self-care (01) ==
PROVIDERS: Emergency Provider Emergency Medicine; PCP Internal Medicine
DX: M65.321 Trigger finger, right index finger (principal); Z85.028 Personal history of other malignant neoplasm of stomach
CPT/HCPCS: 99281

== ENCOUNTER 2020-05-27 12:38 | Outpatient (CLI) | payer MEDICARE, SELFPAY ==
--- NOTE | ~2020-05-27 | US_ITS ---
EXAMINATION: US carotid duplex BI DATE: Chest pain. INDICATION: Other symptoms and signs involving the TECHNIQUE: Grayscale, color Doppler, and pulsed Doppler images of the cervical carotid arteries were obtained. The degree of vessel stenosis is placed in one of the following categories: normal, <50%, 5 0-69%, >=70% but less than near-occlusion, near-occlusion, or total occlusion. Note that percent sten osis relative to normal distal artery lumen diameter is indirectly measured from velocity measurement s as described by Romeo, et al. Radiology 2003; 229:340-346. COMPARISON: None. FINDINGS: RIGHT: The right common carotid artery (CCA) peak systolic velocity (PSV) is 163 cm/s. The right internal ca rotid artery (ICA) PSV is 74 cm/s. The right ICA end-diastolic velocity (EDV) is 28 cm/s. The right I CA/CCA PSV ratio is 0.7. Grayscale and color Doppler images yield an estimate of <50% diameter reduct ion from plaque in the ICA. There is antegrade flow in the right vertebral artery. LEFT: The left CCA PSV is 133 cm/s. The left ICA PSV is 79 cm/s. The left ICA EDV is 15 cm/s. The left ICA/ CCA PSV ratio is 0.6. Grayscale and color Doppler images yield an estimate of <50% diameter reduction from plaque in the ICA. There is antegrade flow in the left vertebral artery. IMPRESSION: 1. <50% stenosis in the right internal carotid artery. 2. <50% stenosis in the left internal carotid artery. Reviewed, dictated and finalized at location A.
== END 2020-05-27 12:39 | disposition home or self-care (01) ==
PROVIDERS: PCP Internal Medicine; Visit Provider Internal Medicine
DX: I65.23 Occlusion and stenosis of bilateral carotid arteries (principal); R29.898 Other symptoms and signs involving the musculoskeletal system; R09.89 Other specified symptoms and signs involving the circulatory and respiratory systems
CPT/HCPCS: 93880

== ENCOUNTER 2020-06-20 06:40 | Outpatient (CLI) | payer MEDICARE, SELFPAY ==
--- NOTE | ~2020-06-20 | MR_ITS ---
EXAMINATION: MR wrist RT wo con, MR hand RT wo con DATE: 06/20/2020 08:30 INDICATION: Flexor tendon rupture to the thumb and index finger TECHNIQUE: 1. Magnetic resonance imaging (MRI) of the right wrist was performed without intravenous contrast. Se quences performed include axial PD-weighted FSE and PD-weighted FS FSE, coronal PD-weighted FS FSE an d T1-weighted SE, and sagittal PD-weighted FS FSE and PD-weighted FSE. 2 . MRI of the right hand was performed without intravenous contrast. Sequences included axial T1-caitlin ghted FSE and T2-weighted FS FSE, sagittal T1-weighted FSE and T2-weighted FS FSE, coronal T1-weighte d FSE and PD-weighted FS FSE. COMPARISON: None FINDINGS: Intrinsic ligaments: The lunotriquetral ligament is normal. Partial tear of the central membranous component and volar com ponent of the scapholunate ligament. The dorsal component is normal. Triangular fibrocartilage complex (TFCC): Partial tear of the central fibrocartilaginous disc of the triangular fibrocartilage complex as well as the dorsal radioulnar ligament. The volar radioulnar ligament as well as the foveal and ulnar styl oid attachments remain normal. The ulnar collateral ligament, ulnotriquetral ligament and meniscal ho mologue are normal. The extensor carpi ulnaris tendon sheath is normal. Extensor wrist: Extensor tendons of the wrist are normal. No tenosynovitis. Flexor wrist: The flexor tendons of the wrist are normal. No abnormality in the carpal tunnel with normal median n erve. Distal to the carpal tunnel there is mild increased fluid signal surrounding the flexor tendons to the fourth digit at the level of the metacarpal diaphysis consistent with mild tenosynovitis. Guyon's canal: Guyon's canal including the ulnar nerve and artery are normal. Bones/other: Bone alignment is normal. No fracture or pathologic marrow replacing process. Mild polyarticular oste oarthritis at the wrist, carpus and multiple interphalangeal joints. Likely secondary degenerative vargas barticular cystic change at the volar aspect of the proximal articular surface of the lunate, at the ulnar side of the proximal articular surface of the capitate, in the triquetrum underlying the pisotr iquetral articulation, at the base of the first metacarpal and mild subarticular edema along both jacqueline es of the triscaphe joint, at the head of the third metacarpal and at both sides of the fourth distal interphalangeal joint. The collateral ligament complex at the metacarpophalangeal and interphalangea l joints are normal. No asymmetric atrophy of the intrinsic musculature is of the hand. IMPRESSION: 1. Mild tenosynovitis along the flexor tendon sheaths the fourth digit at the level of the metacarpal . The flexor tendons including to the first and second digits are normal. 2. Partial tears of the central and volar components of the scapholunate ligament and of the central fibrocartilaginous disc and dorsal radioulnar ligament of the triangular fibrocartilage complex. 3. 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 Reviewed, dictated and finalized at location A. IMPRESSION: 1. Mild tenosynovitis along the flexor tendon sheaths the fourth digit at the l evel of the metacarpal. The flexor tendons including to the first and second di gits are normal. 2. Partial tears of the central and volar components of the scapholunate ligame nt and of the central fibrocartilaginous disc and dorsal radioulnar ligament of the triangular fibrocartilage complex. 3. Mild polyarticular osteoarthritis at the right wrist, carpus and interphalan geal joints.
== END 2020-06-20 06:41 | disposition home or self-care (01) ==
PROVIDERS: PCP Internal Medicine; Visit Provider Plastic Surgery
DX: S66.002A Unspecified injury of long flexor muscle, fascia and tendon of left thumb at wrist and hand level, initial encounter (principal); S66.101A Unspecified injury of flexor muscle, fascia and tendon of left index finger at wrist and hand level, initial encounter; X58.XXXA Exposure to other specified factors, initial encounter; M19.041 Primary osteoarthritis, right hand; M19.031 Primary osteoarthritis, right wrist
CPT/HCPCS: 73218; 73221

== ENCOUNTER 2020-08-08 09:25 | Outpatient (CLI) | payer MEDICARE, SELFPAY ==
--- NOTE | 2020-08-08 12:00 | NEURO_ITS ---
Impression: # Complains of right hand numbness. # Right Carpal Tunnel Syndrome. # No ulnar neuropathy. # Needle/EMG exam abnormal in right APB. Nerve Conduction Studies Anti Sensory Summary Table Stim Site NR Peak (ms) P-T Amp (?V) Site1 Site2 Delta-P (ms) Dist (cm) Cristi (m/s) Right Median Anti Sensory (2-3nd Digit) Wrist 4.4 29.0 Wrist 2-3nd Digit 4.4 14.0 32 Wrist 4.5 31.6 Wrist 2-3nd Digit 4.4 14.0 32 Right Radial Anti Sensory (Base 1st Digit) Wrist 3.0 23.2 Wrist Base 1st Digit 3.0 0.0 Right Ulnar Anti Sensory (5th Digit) Wrist 3.9 26.4 Wrist 5th Digit 3.9 14.0 36 Motor Summary Table Stim Site NR Onset (ms) O-P Amp (mV) Site1 Site2 Delta-0 (ms) Dist (cm) Cristi (m/s) Right Median Motor (Abd Poll Brev) Wrist 4.7 0.8 Elbow Wrist 6.9 33.0 48 Elbow 11.6 0.7 Right Ulnar Motor (Abd Dig Minimi) Wrist 3.6 4.2 A Elbow Wrist 5.9 31.0 53 A Elbow 9.5 3.4 F Wave Studies NR F-Lat (ms) L-R F-Lat (ms) Right Median (Mrkrs) (Abd Poll Brev) 35.90 Right Ulnar (Mrkrs) (Abd Dig Min) 35.83 EMG Side Muscle Nerve Root Ins Act Fibs Amp Dur Recrt Comment Right 1stDorInt Ulnar C8-T1 Nml Nml Nml Nml Nml Right Ext Indicis Radial (Post Int) C7-8 Nml Nml Nml Nml Nml Right Ext Digitorum Radial (Post Int) C7-8 Nml Nml Nml Nml Nml Right BrachioRad Radial C5-6 Nml Nml Nml Nml Nml Right PronatorTeres Median C6-7 Nml Nml Nml Nml Nml Right Abd Poll Brev Median C8-T1 Nml Nml Incr >12ms Reduced Right [place] Dig Min Ulnar C8-T1 Nml Nml Nml Nml Nml Right FlexPolLong Median (Ant Int) C7-8 Nml Nml Nml Nml Nml MTDD
== END 2020-08-08 09:26 | disposition home or self-care (01) ==
PROVIDERS: PCP Internal Medicine; Visit Provider Internal Medicine
DX: M79.644 Pain in right finger(s) (principal); G56.01 Carpal tunnel syndrome, right upper limb
CPT/HCPCS: 95886; 95909

== ENCOUNTER 2021-10-02 15:34 | Outpatient (CLI) | payer MEDICARE, SELFPAY ==
--- NOTE | ~2021-10-02 | MR_ITS ---
EXAMINATION: MR cervical spine wo/w con DATE: 10/02/2021 16:34 INDICATION: Neck pain. Parkinson's disease. TECHNIQUE: Magnetic resonance imaging (MRI) of the cervical spine was performed without and with 20 m L MultiHance intravenous contrast. COMPARISON: None FINDINGS: There is 2 mm anterolisthesis of C4 on C5 and C5 on C6 and 2 mm retrolisthesis of C6 on C7 and C7 on T1. Vertebral body heights are normal. There is mildly decreased disc height at C4-C5 and s everely decreased disc height at C5-C6, C6-C7, and C7-T1. The spinal cord signal intensity is normal. The following disc levels are specifically discussed: C2-C3: The disc does not extend beyond the endplate margin. There is ankylosis of the uncovertebral j oints without hypertrophy. There is ankylosis of the facet joints with mild hypertrophy. There is mil d left neural foraminal stenosis. There is no central canal stenosis. C3-C4: There is a central extrusion. There is moderate bilateral uncovertebral joint osteoarthritis. There is severe bilateral facet joint osteoarthritis. There is mild right and moderate left neural fo raminal stenosis. There is mild central canal stenosis. C4-C5: The disc is bulging. There is severe bilateral uncovertebral joint osteoarthritis. There is mo derate and severe left facet joint osteoarthritis. There is moderate bilateral neural foraminal steno sis. There is mild central canal stenosis. C5-C6: The disc does not extend beyond the endplate margin. There is ankylosis of the uncovertebral j oints with severe hypertrophy. There is ankylosis of the facet joints with mild right and severe left hypertrophy. There is mild bilateral neural foraminal stenosis. There is mild central canal stenosis . C6-C7: The disc is bulging. There is severe bilateral uncovertebral joint osteoarthritis. There is se catrina right and moderate left facet joint osteoarthritis. There is moderate right and mild left neural foraminal stenosis. There is mild central canal stenosis with ventral indentation of the spinal cord . C7-T1: The disc is bulging. There is severe bilateral uncovertebral joint osteoarthritis. There is se catrina bilateral facet joint osteoarthritis. There is mild bilateral neural foraminal stenosis. There i s mild central canal stenosis. IMPRESSION: 1. Severe cervical spondylosis. Reviewed, dictated and finalized at location A.
== END 2021-10-02 15:35 | disposition home or self-care (01) ==
PROVIDERS: PCP Internal Medicine; Visit Provider Psychiatry & Neurology Neurology
DX: G20 Parkinson's disease (principal); M47.892 Other spondylosis, cervical region
CPT/HCPCS: 72156

== ENCOUNTER 2021-10-13 07:52 | Outpatient (CLI) | payer MEDICARE, SELFPAY ==
--- NOTE | ~2021-10-13 | XR_ITS ---
XR chest 2V DATE: 10/13/2021 08:35 INDICATION: Prostate cancer TECHNIQUE: PA and lateral views COMPARISON: 05/11/2020 PA and lateral chest FINDINGS: Normal heart size. No hilar or mediastinal enlargement. No pulmonary infiltrate or consolid ation, pleural effusion or pulmonary vascular congestion or pneumothorax. Dextroscoliosis and degenerative spurring of the thoracic spine. IMPRESSION: No active cardiopulmonary disease Reviewed, dictated and finalized at location B.
--- NOTE | ~2021-10-13 | NM_ITS ---
EXAMINATION: NM bone scan whole body DATE: 10/13/2021 11:55 INDICATION: Trochanteric TECHNIQUE: 23.6 mCi Tc-99m HDP was administered intravenously. Delayed whole-body scintigrams were o btained. COMPARISON: CT dated 10/13/2021 and 08/18/2011 FINDINGS: Mild likely degenerative disc disease related uptake at the right side of the L2-L3 disc space with c orresponding severe disc height loss and Modic type III sclerotic endplate changes on prior CT. Addit ional small focus of mild likely degenerative uptake associated with severe osteoarthritis at the lef t C3-C4 and C4-C5 facet joints. Mild likely degenerative joint centered uptake at the medial compartm ent of the right knee. Mild uptake at the lateral aspect of the right 12th rib where there is a small expansile lesion which can be seen dating back to 08/18/2011 which could represent either callus forma tion related to old fracture or benign neoplasm such as fibrous dysplasia or enchondroma. No other vargas spicious foci of abnormal bone uptake to suggest metastatic disease. IMPRESSION: 1. No lesion suspicious for metastatic disease. Reviewed, dictated and finalized at location A.
--- NOTE | ~2021-10-13 | CT_ITS ---
EXAMINATION: CT abdomen pelvis w con DATE: 10/13/2021 08:32 INDICATION: Prostate cancer new diagnosis. History of malignant gastrointestinal stromal tumor. TECHNIQUE: Computed tomography (CT) of the abdomen and pelvis was performed with 100 CC Omnipaque 350 intravenous contrast. Automated exposure control and iterative reconstruction technique were employe d. Exam dose: 687.51 mGy-cm total exam DLP. COMPARISON: 08/22/2015 CT abdomen pelvis FINDINGS: There is minimal dependent atelectasis at the lower lobes. Heart size is within normal rang e. No pericardial or pleural effusion. Very small sliding hiatal hernia. Surgical clips are noted along the posterior antrum of the stomach. History of gastrointestinal aixa al tumor. The liver, gallbladder, bile ducts, pancreas, pancreatic duct, spleen and adrenal glands are unremark able. No renal mass lesion or urinary tract calculus or hydroureteronephrosis. There is atherosclerotic calcification of the abdominal aorta and at the origins of both renal arteri es. No abdominal aortic aneurysm. No intraperitoneal or retroperitoneal or pelvic mass lesion or afia opathy or ascites. Mild prostate enlargement. The urinary bladder is unremarkable. No bowel obstruction, bowel wall thickening, pneumatosis or intraperitoneal free air. Small fat-containing umbilical hernia. There is degenerative change of the thoracic and lumbar spine including severe degenerative disc dise ase at L1-2 and especially L2-3, with mild retrolisthesis at these 2 levels, and moderately severe de generative disc disease at L5-S1. There is degenerative change at the apophyseal joints with associated grade 1 anterolisthesis at L4-5 . No suspicious osteolytic or osteoblastic lesions are noted. IMPRESSION: Status post gastrointestinal stromal tumor resection of gastric antrum Mild prostate enlargement No abdominal or pelvic mass lesion or adenopathy or ascites No evidence of osteolytic or osteoblastic metastatic lesions Degenerative changes of the thoracic and lumbar spine Reviewed, dictated and finalized at Location A. Reviewed, dictated and finalized at location B. IMPRESSION: Status post gastrointestinal stromal tumor resection of gastric an trum Mild prostate enlargement No abdominal or pelvic mass lesion or adenopathy or ascites No evidence of osteolytic or osteoblastic metastatic lesions Degenerative changes of the thoracic and lumbar spine
[2021-10-13 08:22] LABS: Estimated Glomerular Filt Rate 50
== END 2021-10-13 07:53 | disposition home or self-care (01) ==
PROVIDERS: PCP Internal Medicine; Visit Provider Urology
DX: C61 Malignant neoplasm of prostate (principal); N40.0 Benign prostatic hyperplasia without lower urinary tract symptoms; M51.34 Other intervertebral disc degeneration, thoracic region; M51.36 Other intervertebral disc degeneration, lumbar region
CPT/HCPCS: 71046; 74177; 78306; A9561; Q9967

== ENCOUNTER 2021-12-23 09:50 | Outpatient (CLI) | payer MEDICARE, SELFPAY ==
--- NOTE | 2021-12-23 10:40 | ECG_ITS ---
Measurements Intervals [place] Rate: 52 P: 54 CA: 165 QRS: 22 QRSD: 101 T: 51 QT: 423 QTc: 397 Interpretive Statements SINUS BRADYCARDIA VOLTAGE CRITERIA FOR LVH BORDERLINE ECG COMPARED TO ECG 05/12/2020 10:19:41 HEART RATE HAS INCREASED Electronically Signed On 12-23-2021 11:13:17 [employer] by Tobin Crawford D.O.
[2021-12-23 11:02] LABS: Basophils Percent Auto 0.4 % (0.2-1.2); Eosinophils Absolute Auto 0.2 K/mm3 (0-0.3); Eosinophils Percent Auto 2.7 % (0-4.4); Hematocrit 42.1 % (42.0-52.0); Hemoglobin 14.2 g/dL (14.0-18.0); Immature Granulocyte Absolute 0.01 K/mm3 (0.00-0.031); Immature Granulocyte Percent A 0.2 % (0-0.5); Lymphocytes Absolute Auto 1.32 K/mm3 (0.9-3.2); Lymphocytes Percent Auto 23.6 % (18.3-44.2); Mean Corpuscular HGB Conc 33.7 g/dl (32-36); Mean Corpuscular Hemoglobin 31.6 pg (26-34); Mean Corpuscular Volume 93.8 fl (80-100); Mean Platelet Volume 9.6 fl (7.4-10.4); Monocytes Absolute Auto 0.4 K/mm3 (0.1-0.6); Monocytes Percent Auto 7.5 % (2.6-8.5); Neutrophils Absolute Auto 3.7 K/mm3 (1.3-6.7); Neutrophils Percent Auto 65.6 % (45.5-73.1); Platelet Count Result 201 k/mm3 (150-375); Red Blood Count 4.49 M/mm3 (4.6-6.20); Red Cell Distribution Width 12.6 % (11.5-14.5); White Blood Count 5.6 K/mm3 (4.5-10.0)
[2021-12-23 11:03] LABS: Appearance Urine Clear (Clear); Bilirubin Urine 1+ (Negative); Blood Urine Negative (Negative); Color Urine Yellow (Yellow); Glucose Urine UA Negative (Negative); Ketones Urine Trace mg/dL (Negative); Leukocyte Esterase Ur Negative LEU/UL (Negative); Nitrate Urine Negative (Negative); Protein Urine Negative (Negative); Specific Grav Ur 1.025 (1.001-1.035); Urobilinogen Urine 0.2 mg/dL (<2.0); pH Urine 5.5 (5.0-9.0)
[2021-12-23 11:12] LABS: Mucus Urine Rare /lpf; Squamous Epithelial Cell Urine Rare /hpf (Few); WBC Urine 0-3 /hpf
[2021-12-23 11:17] LABS: Add Urine Microscopic? YES
[2021-12-23 11:19] LABS: INR 1.1; Prothrombin Time 13.4 Seconds (11.1-14.7)
[2021-12-23 11:20] LABS: Alanine Aminotransferase 7 U/L (6-50); Alkaline Phosphatase 61 U/L (38-126); Anion Gap 12 mmol/L (8-16); Aspartate Amino Transferase 29 U/L (17-59); Bilirubin,Total 2.6 mg/dL (0.2-1.3); Blood Urea Nitrogen 27 mg/dL (9-20); Carbon Dioxide 29 mmol/L (22-30); Chloride 99 mmol/L (98-107); Estimated Glomerular Filt Rate 46; Glucose 108 mg/dL (65-110); Partial Thromboplastin Time 30.7 SECONDS (22.3-36.8); Potassium 4.5 mmol/L (3.4-5.0); Sodium 140 mmol/L (137-145)
== END 2021-12-23 09:51 | disposition home or self-care (01) ==
LOC: ANHSURGERY 09:54
PROVIDERS: PCP Internal Medicine; Visit Provider Urology
DX: C61 Malignant neoplasm of prostate (principal); Z01.818 Encounter for other preprocedural examination; R94.31 Abnormal electrocardiogram [ECG] [EKG]
CPT/HCPCS: 36415; 80053; 81001; 85025; 85610; 85730; 86850; 86900; 86901; 93005

== ENCOUNTER 2022-01-01 00:47 | Day surgery (SDC) | payer MEDICARE, SELFPAY ==
[2021-12-23 10:00] VITALS: BP 146/90; PULSE 58; RESP 20; TEMP 36.5; O2SAT 100; BMI 27.5
--- NOTE | 2021-12-23 10:01 | PC.NURSE ---
Report to the Outpatient Waiting Room, entrance under the green pavilion located off [facility], at time _0600_ on date _01/01/22_. Planned Procedure Time: _0730_. PACK A SMALL OVERNIGHT BAG AND LEAVE IN THE CAR Time changes happen often and if your time is changed the preop area will call you the afternoon before. - You and your visitor will be asked to self-screen and do not enter if you have any COVID symptoms. - We encourage only one visitor and NO visitors under age 16 are allowed at this time. Your visitor will receive communication by the phone number that is given day of service. - The patient visitor is requested to social distance or may leave the building when not with patient due to restrictions. - A mask is required within the hospital. -VISITING HOURS 8AM-8PM Patients may have clear liquids (water, carbonated beverages, clear teas, apple juice) until 3 hours prior to surgery (0430 AM) with a maximum of 20 ounces. - No food from midnight until time of surgery Take the following medications with a SIP of water the morning of surgery: _AMLODIPINE, SINEMET_ Medications to discontinue _DICLOFENAC PER DR. SANTANA'S INSTRUCTIONS 7 DAYS PRIOR TO SURGERY__ Date to take last dose_12/24/21_ Please no deodorant, or body powder the day of surgery. No jewelry (including any body piercings) or valuables the day of surgery, leave them at home. Please take a shower or bath the night before, or the morning of, surgery with an antibacterial soap. Wear comfortable, loose fitting clothing. - Jewelry must be removed prior to entering the operating room. Rings and piercings that are not removed may be cut off. - The hospital will not accept responsibility for valuables. - Please leave all valuables, including medications, at home the day of surgery. If you are going home after surgery, a licensed otr truck driver must drive you home. - NO public transportation without another adult. - We recommend that an adult stay with you for 24 hours following discharge. - We also recommend that you do not drive, make important decision, drink alcoholic beverages, or take any drugs that were not prescribed by your health care provider for at least 24 hours after your discharge time. Follow any additional instructions given to you from your surgeon. BOWEL PREP If you or anyone in your household have experienced Covid symptoms in the past week, please notify your surgeon or the nurse liaison at the phone number below for possible testing. Instructions given to _PT & SPOUSE_and asked if any additional questions and then verbalized understanding. Patient advised to call surgeon office or pre surgery nurse liaison [phone] if any additional questions.
--- NOTE | 2021-12-25 06:56 | PM.IMHP ---
H&P: HPI History of Present Illness Date/Time: 12/25/21 06:56 Chief Complaint: Prostate cancer Narrative: pleasant 71-year-old who recently underwent evaluation for a PSA of 5.1. 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 His prostate volume was measured at 26.7 g. Staging evaluation with CT scan the abdomen and pelvis, bone scan and chest x-ray showed no evidence of metastatic disease. After discussion of therapeutic options he has elected to proceed with a robotic assisted radical prostatectomy with bilateral pelvic lymphadenectomy. He is aware the risk of this procedure including but not limited to inability to control completely control the cancer, need for adjuvant therapy, rectal injury, vascular neurological injury with the node dissection, urinary incontinence and erectile dysfunction. He is also where the alternative therapeutic options including active surveillance, androgen ablation and radiation therapy. Review of Systems Cardiovascular: Cardiovascular: Denies chest pain, Denies lightheadedness, Denies palpitations and Denies dyspnea Respiratory: Respiratory: Denies dyspnea Gastrointestinal: Gastrointestinal: Denies diarrhea, Denies nausea and Denies vomiting Genitourinary: Genitourinary: Denies hematuria and Denies dysuria Endocrine: Endocrine: Denies palpitations PMFSH Past Medical History Medical History (Updated 12/25/21 @ 06:58 by Toni Viera MD) History of blood transfusion History of stomach cancer Surgical History Surgical History H/O inguinal hernia repair x2 History of surgery for malignant neoplasm of the stomach Hx of cataract surgery Family History Family History Mother Hypertension Father Family history of malignant neoplasm of thyroid Sibling Cancer Social History Social History Smoking status: Former smoker Tobacco type: cigarettes Second hand tobacco smoke exposure: No Smoking end date: 02/16/08 Additional smoking assessment comments: STATES SMOKED WHEN BOWLING 1PK/EVERY COUPLE OF MONTHS/5 YRS Alcohol intake: current Drinks per week: 14 Substance use: never Substance use type: does not use Lack of Transportation: No Lack of Food: Never True Current Housing: I Have Housing Concerned About Future Housing: No Difficulty Paying Gas/Electric Bills: No Difficulty Paying for Meds: No Currently Unemployed: No Education: Bachelor's Degree Difficulty w/ Childcare or Family Care: No Gender identity (if verbalized by the patient): Male Spiritual care concerns: No Meds Home Medications and Allergies Home Medications Medication Instructions Recorded Confirmed Type carbidopa 25 mg-levodopa 100 mg 1 tablet PO TID 02/10/21 12/23/21 History tablet (Sinemet) amlodipine 5 mg tablet (Norvasc) 2.5 mg PO QAM #30 tabs 10/31/21 12/23/21 Rx diclofenac sodium 75 mg 75 mg PO BID #180 tabs 12/19/21 12/23/21 Rx tablet,delayed release Allergies Allergy/AdvReac Type Severity Reaction Status Date / Time No Known Allergies Allergy Verified 12/24/21 09:06 Exam Const: General: no acute distress Resp: Effort & Inspection: normal respiratory effort GI: Inspection: non-distended GI Palp: No abdominal tenderness and No Guarding due to palpation present (GI) Auscultation: normal bowel sounds Assessment and Plan Assessment and plan (1) Prostate cancer: Code(s): C61 - Malignant neoplasm of prostate Status: Acute Assessment and Plan: robotic assisted radical prostatectomy with bilateral pelvic lymphadenectomy
--- NOTE | 2021-12-31 09:46 | WPDANESEPPF ---
Anes - Initial Pre Proc Eval Procedure: Operation Date: 01/01/22 07:30 Proposed Procedures p Robotic Assisted Laparoscopic Prostatectomy with Bilateral Pelvic Lymph Node Dissection - Toni Viera MD Date/Time: 12/31/21 09:46 Surgeon: Toni Viera MD Pre Op Diagnosis: prostate CA Patient Data Age: 71 Gender: M Height: 1.88 m Weight: 97.3 kg Last Vital Signs Temp 97.7 F 12/23/21 10:00 Pulse 58 L 12/23/21 10:00 Resp 20 12/23/21 10:00 BP 146/90 H 12/23/21 10:00 Pulse Ox 100 12/23/21 10:00 O2 Del Method Room Air 12/23/21 10:00 Allergies Allergy/AdvReac Type Severity Reaction Status Date / Time No Known Allergies Allergy Verified 01/01/22 06:11 Home Medications Medication Instructions Recorded Confirmed Type carbidopa 25 mg-levodopa 100 mg 1 tablet PO TID 02/10/21 01/01/22 History tablet (Sinemet) amlodipine 5 mg tablet (Norvasc) 2.5 mg PO QAM #30 tabs 10/31/21 01/01/22 Rx diclofenac sodium 75 mg 75 mg PO BID #180 tabs 12/19/21 01/01/22 Rx tablet,delayed release acetaminophen 500 mg capsule 500 mg PO Q6H PRN Pain 01/01/22 01/01/22 History Patient hx anesthesia problems: none Family hx anesthesia problems: none Results Review: All pre-operative results and documents have been reviewed as part of the pre-operative evaluation. [facility] Past Medical History Medical History (Updated 12/31/21 @ 09:45 by Jeyson Kulkarni MD) Essential (primary) hypertension History of blood transfusion History of stomach cancer Parkinson disease Pure hypercholesterolemia Surgical History Surgical History H/O inguinal hernia repair x2 History of surgery for malignant neoplasm of the stomach Hx of cataract surgery Family History Family History Mother Hypertension Father Family history of malignant neoplasm of thyroid Sibling Cancer Social History Social History Smoking status: Former smoker Tobacco type: cigarettes Second hand tobacco smoke exposure: No Smoking end date: 02/16/08 Additional smoking assessment comments: STATES SMOKED WHEN BOWLING 1PK/EVERY COUPLE OF MONTHS/5 YRS Alcohol intake: current Drinks per week: 14 Substance use: never Substance use type: does not use Lack of Transportation: No Lack of Food: Never True Current Housing: I Have Housing Concerned About Future Housing: No Difficulty Paying Gas/Electric Bills: No Difficulty Paying for Meds: No Currently Unemployed: No Education: Bachelor's Degree Difficulty w/ Childcare or Family Care: No Living arrangements: with family Gender identity (if verbalized by the patient): Male Spiritual care concerns: No Anes - Eval Final PreProcedure Day of Procedure 12/31/21 09:46 Patient weight: obese Heart: regular rate and rhythm Lungs: clear to auscultation Airway: Mallampati scale class III Neurological: alert and oriented Last oral intake: >/= 8 hours ASA classification: III Emergent: no Anesthetic plan: proceed Anesthesia type and monitoring: general ETT and standard monitoring Results Review: All pre-operative results and documents have been reviewed as part of the pre-operative evaluation. Informed Consent: The patient's anesthetic plan and its attendant risks and benefits were discussed with the patient/family/POA. Questions were solicited and answers provided to the satisfaction of the patient/family/POA.
[2022-01-01] VITALS (10 sets, daily range): BP systolic 113–167; BP diastolic 67–90; PULSE 65–80; RESP 13–18; TEMP 36–37.1; O2SAT 95–100; BMI 26.9
--- NOTE | 2022-01-01 06:33 | WPDHPUPDATE1 ---
History and Physical Update Update Date/Time: 01/01/22 06:33 History and Physical has been reviewed, including an updated exam of the patient. There are NO changes in the patient's condition. Risks, benefits, and alternatives have been discussed and questions answered. Patient agrees to proceed with procedure.
[2022-01-01] MEDS: LACTATED RINGERS 1,000 ML 30 ML IV CONT ×2 (06:55→10:55)
[2022-01-01] MEDS: ceFAZolin 2 GM/D5W 50 ML 2 GM/50 ML BAG IVPB (07:26)
--- NOTE | 2022-01-01 10:52 | W.PM.PROC2 ---
Procedure Note - Detailed Date of Procedure 01/01/22 Pre-op Diagnosis Prostate CA Post-op Diagnosis Same Procedure Performed 1. Extensive lysis of adhesions (45min) 2. Robotic assisted laparoscopic prostatectomy 3. Robotic assisted bilateral pelvic lymphadenectomy Surgeon Toni Viera MD Manufacturing Assistant SUKHWINDER [facility]chavar[facility] Anesthesia General Description of Procedure The patient was brought to the operative suite, where he was prepped and draped in routine sterile fashion while in a dorsal lithotomy, deep Trendelenburg position. Due to his 3 prior abdominal procedures a insufflation was somewhat complicated. I attempted insufflating with a Veress needle there was side above the umbilicus into the left upper quadrant. This was immediately met with high-pressure flow. I therefore opted to dissect into the peritoneum into an open placement of a suprapubic trocar. This was done with care to avoid any injury to the contents of the bowel. Upon placement of the camera port in further insufflation I could see that there was extensive adhesions, particularly in the right lower quadrant. I 1st took these down with a hand-held scissors through a trocar in the left lower quadrant. I was not able to get 2 more robotic trocars in, docked the robot and performed an additional 30 minutes of adhesion lysis to allow placement a typical ports for robotic prostatectomy. Three robotic ports were then placed under direct vision. Two of these were placed in the right lower quadrant - 10 cm and 20 cm lateral to, and in line with, the umbilicus. A third robotic trocar was placed 10 cm to the left of the umbilicus, and 20 cm to the left of the umbilicus, a 12 mm standard laparoscopic trocar was placed to be used as an optometric assistant port. Lastly, a 5 mm trocar was placed in the left upper quadrant midway between the umbilicus and the left robotic trocar. Careful inspection the contents of the abdomen revealed no apparent injury to the small large intestine. Attention was then turned to the prostatectomy. I opted for a posterior approach in this patient. An incision was made in the parietal peritoneum along the posterior bladder/posterior prostate about 2 cm above the reflection of the peritoneum over the anterior rectum. The seminal vesicles and vas deferens were immediately identified. Dissection is undertaken in a fashion so as to avoid electrocautery as much as possible, particularly near the tips of the seminal vesicles. Dissection was also carried out in the midline so as to avoid any encounters with the ureters. The vas deferens and the seminal vesicles were dissected in their entirety to the base of the prostate. The plane anterior to Denoviller's fascia, anterior to the rectum and posterior to the prostate was then developed. I then dropped the bladder by incising the anterior parietal peritoneum just lateral to the median umbilical ligaments bilaterally. The bladder was dropped from the anterior abdominal and pelvic wall. The endopelvic fascia was identified and incised bilaterally, allowing for dissection of the posterior-lateral aspect of the prostate. The puboprostatic ligaments were transected near their origin from the posterior pubic ramus. This posterior lateral dissection of the prostate is also undertaken in a fashion so as to avoid electrocautery as much as possible. The dorsal vein of the penis is then secured with an 0 -Vicryl ligature. Attention is then turned to the bladder neck. The anterior bladder neck is incised at the vesico-prostatic junction. The previously placed urethral catheter was drawn through the urethrotomy. A very small bladder neck was maintained throughout the remainder of this dissection. The posterior bladder neck was incised in a fashion so as to avoid any injury to the ureteral orifices. Again, the small aperture of the bladder neck was maintained. The previously dissected vas deferens and the seminal vesicles were brought through the po
--- NOTE | 2022-01-01 11:30 | SUR.PHASEI ---
Discussed delay getting a bed with patient and also with .
--- NOTE | 2022-01-01 12:29 | PC.NURSE ---
patient arrived to [facility] and transferred via hover mat x4 assist. oriented to department, call light. able to take sips of water w/out difficulty. seq cuffs resumed. incentive spirometer arrived via respiratory. family at bedside.
[2022-01-01] MEDS: LACTATED RINGERS 1,000 ML 125 ML IV CONT ×2 (12:39→21:20)
[2022-01-01] MEDS: CARBIDOPA/LEVODOPA 25/100 MG TABLET 1 TABLET PO ×2 (13:44→16:59)
--- NOTE | 2022-01-01 14:06 | PC.NURSE ---
Report called to primary nurse on 2 medical
--- NOTE | 2022-01-01 14:57 | PC.NURSE ---
Patient transferred from holding bed [facility] to room 250. Patient oriented to the room.
[2022-01-02 02:00] VITALS: BP 138/79; PULSE 74; RESP 17; TEMP 36.8; O2SAT 94
[2022-01-02 05:21] VITALS: BP 145/78; PULSE 75; RESP 18; TEMP 36.8; O2SAT 94
[2022-01-02 06:19] LABS: Hematocrit 34.4 % (42.0-52.0); Hemoglobin 11.6 g/dL (14.0-18.0)
[2022-01-02 06:33] LABS: Anion Gap 8 mmol/L (8-16); Blood Urea Nitrogen 14 mg/dL (9-20); Calcium 8.1 mg/dL (8.4-10.2); Carbon Dioxide 28 mmol/L (22-30); Chloride 101 mmol/L (98-107); Estimated CRCL calculation 57 ml/min; Estimated Glomerular Filt Rate 59; Glucose 113 mg/dL (65-110); Potassium 3.5 mmol/L (3.4-5.0); Sodium 137 mmol/L (137-145)
--- NOTE | 2022-01-02 08:53 | WPDANESPN ---
Anes - Prog Note Post-Op Date/Time: 01/02/22 08:53 Cardiovascular status: normal Respiratory status: normal Airway patency: baseline Mental status: baseline Post-Op hydration status: normal Vital Signs: Last Vital Signs Temp 36.8 C 01/02/22 05:21 Pulse 75 01/02/22 05:21 Resp 18 01/02/22 05:21 BP 145/78 H 01/02/22 05:21 Pulse Ox 94 01/02/22 05:21 O2 Del Method Room Air 01/01/22 20:00 O2 Flow Rate 6 01/01/22 11:10 Pain Score (VAS): 03/27 I/O: Intake & Output 01/01/22 01/02/22 01/02/22 23:59 07:59 15:59 Intake Total 2300 600 Output Total 550 1300 Balance 1750 -700 Laboratory Tests 01/02/22 05:10 01/02/22 05:10 01/02/22 01/02/22 05:10 05:10 Hgb 11.6 L Hct 34.4 L Sodium 137 Potassium 3.5 Chloride 101 Carbon Dioxide 28 Anion Gap 8 BUN 14 D Creatinine 1.20 Estim Creat Clear Calc 57 Estimated GFR 59 Glucose 113 H Calcium 8.1 L Post-procedural complaints: none Patient Feedback: Patient satisfied with anesthetic care.
--- NOTE | 2022-01-02 09:03 | WPDUROPN2 ---
Progress Note: A&P Assessment and Plan (1) Prostate cancer: Code(s): C61 - Malignant neoplasm of prostate Status: Acute Assessment and Plan: Patient doing well POD#1. With ambulate advance diet. Anticipate discharge later today continues to do Subjective Subjective Date/Time Seen: 01/02/22 09:03 Comfortable, no complaints - uneventful night Review of Systems Cardiovascular: Cardiovascular: Denies chest pain, Denies lightheadedness, Denies palpitations and Denies dyspnea Respiratory: Respiratory: Denies dyspnea Gastrointestinal: Gastrointestinal: Denies diarrhea, Denies nausea and Denies vomiting Genitourinary: Genitourinary: Denies hematuria and Denies dysuria Endocrine: Endocrine: Denies palpitations Exam Const: General: no acute distress Resp: Effort & Inspection: normal respiratory effort GI: Inspection: non-distended and other (incisions clean and dry) GI Palp: No abdominal tenderness and No Guarding due to palpation present (GI) Auscultation: normal bowel sounds Urinary Catheter: Urinary Catheter: patent and draining and urine clear Objective Data Vital Signs Vital Signs: Vital Signs - 24 hr 01/01/22 10:55 01/01/22 11:10 01/01/22 11:25 Temperature 98.7 F Pulse Rate 72 69 70 Respiratory Rate 18 15 13 Blood Pressure 150/72 H 147/67 H 138/71 Pulse Oximetry 99 100 98 Oxygen Delivery Simple Face Mask Simple Face Mask Room Air Oxygen Flow Rate 6 6 01/01/22 11:40 01/01/22 12:10 01/01/22 12:40 Temperature 97.6 F 96.8 F L Pulse Rate 67 74 71 Respiratory Rate 14 18 16 Blood Pressure 151/85 H 155/83 H 147/85 H Pulse Oximetry 98 99 98 Oxygen Delivery Room Air Oxygen Flow Rate 01/01/22 13:49 01/01/22 14:20 01/01/22 18:44 Temperature 97.6 F 98.4 F Pulse Rate 74 80 Respiratory Rate 16 16 Blood Pressure 158/81 H 113/67 Pulse Oximetry 99 95 Oxygen Delivery Room Air Oxygen Flow Rate 01/01/22 21:54 01/01/22 20:00 01/02/22 02:00 Temperature 98.2 F 98.2 F Pulse Rate 80 74 Respiratory Rate 17 17 Blood Pressure 127/72 138/79 Pulse Oximetry 96 94 Oxygen Delivery Room Air Oxygen Flow Rate 01/02/22 05:21 Temperature 98.2 F Pulse Rate 75 Respiratory Rate 18 Blood Pressure 145/78 H Pulse Oximetry 94 Oxygen Delivery Oxygen Flow Rate Intake/Output Intake/Output: Intake & Output 12/30/21 12/31/21 01/01/22 01/02/22 23:59 23:59 23:59 23:59 Intake Total 2600 600 Output Total 550 1300 Balance 2050 -700 Meds/Results Medications: Active Medications Generic Name Dose Route Start Last Admin Trade Name Freq PRN Reason Stop Dose Admin Amlodipine Besylate 2.5 mg 01/02/22 09:00 Amlodipine Besylate 2.5 Mg Tablet PO QAM PIERCE Carbidopa/Levodopa 1 tablet 01/01/22 12:00 01/01/22 16:59 Carbidopa/Levodopa 25/100 Mg Tablet PO 1 tablet TIDWM PIERCE Administration Hyoscyamine 0.125 mg 01/01/22 11:51 Hyoscyamine Sulfate 0.125 Mg Tablet SUBLINGUAL Q4H PRN Bladder Spasm Lactated Ringer's 1,000 mls @ 125 mls/hr 01/01/22 11:51 01/01/22 21:20 Lr - Lactated Ringers Iv IV CONT 125 mls/hr .Q8H PIERCE Administration Acetaminophen 1,000 mg in 100 mls @ 400 mls/hr 01/01/22 11:51 01/02/22 00:45 Ofirmev 1,000 Mg Ivpb IVPB 01/02/22 11:50 Infused Q6H PIERCE Infusion Ketorolac Tromethamine 15 mg 01/01/22 11:51 Ketorolac 15 Mg/Ml Vial (*Bkc) IV PUSH 01/02/22 11:50 Q6H PRN Pain Rated 4-6 Levofloxacin 500 mg 01/02/22 09:00 Levofloxacin 500 Mg Tablet PO DAILY PIERCE Naloxone HCl 0.1 mg 01/01/22 11:51 Naloxone Hcl 0.4 Mg/Ml Vial IV PUSH Q2M PRN Opiate Reversal Labs Labs: Laboratory Results - last 24 hr 01/02/22 01/02/22 05:10 05:10 Hgb 11.6 L Hct 34.4 L Sodium 137 Potassium 3.5 Chloride 101 Carbon Dioxide 28 Anion Gap 8 BUN 14 D Creatinine 1.20 Estim Creat Clear Calc 57 Estimated GFR 59 Glucose 113 H
[2022-01-02] MEDS: CARBIDOPA/LEVODOPA 25/100 MG TABLET 1 TABLET PO ×2 (09:05→12:19)
[2022-01-02] MEDS: amLODIPine BESYLATE 2.5 MG TABLET PO (09:05)
[2022-01-02] MEDS: levoFLOXacin 500 MG TABLET PO (09:06)
[2022-01-02 10:00] VITALS: BP 138/80; PULSE 72; RESP 18; TEMP 36.7; O2SAT 95
--- NOTE | 2022-01-02 12:16 | PM.DS ---
DS: Admitting Diagnosis Discharge Date 01/02/2022 Admitting Diagnosis Prostate cancer DS: Summary Hospital Course Hospital Course: This patient was admitted on the morning of his planned robotic prostatectomy. This procedure was uneventful, as was his postoperative course. By the evening of the procedure he was sitting at the bedside in tolerating a liquid diet. The following morning he was ambulating freely and tolerating regular food. His catheter drainage remained essentially clear throughout. His postoperative hemoglobin and serum creatinine were unremarkable. At the time of discharge he has been instructed in appropriate care for his Cavanaugh catheter with both a leg bag and bedside bag. He will be discharged with plans to follow-up in 1 week with a cystogram. Time Spent with Patient Time attestation: Total time spent providing and/or coordinating discharge services: DS: Data Data Completed and Pending Pending studies at discharge: Pending at discharge 01/01/22 10:32 Surgical [PTH] Routine Labs on day of discharge: Labs from last 24 hours 01/02/22 01/02/22 05:10 05:10 Hgb 11.6 L Hct 34.4 L Sodium 137 Potassium 3.5 Chloride 101 Carbon Dioxide 28 Anion Gap 8 BUN 14 D Creatinine 1.20 Estim Creat Clear Calc 57 Estimated GFR 59 Glucose 113 H Calcium 8.1 L Discharge Plan Discharge Patient Disposition: Home, Self-Care Discharge Instructions: 1) Cavanaugh catheter -> leg bag / bedside bag at night. 2) No lifting/straining >15lbs. x3 weeks. 3) No driving x1-week. 4) Resume normal, pre-operative diet. 5) My office will contact regarding follow-up in 1-week with cystogram. Stand Alone Forms: General Discharge Instructions Follow-up/Referrals: Toni Viera MD [Physician] - Discharge Orders: Discharge Order (Routine); Ordered 01/02/22 Ordered By: Toni Viera Discharge Medications: New ciprofloxacin HCl 500 mg tablet 500 mg PO Q12H Qty: 10 0RF docusate sodium [Colace] 100 mg capsule 100 mg PO DAILY Qty: 30 0RF hydrocodone-acetaminophen 5-325 mg tablet 1 - 2 tablet PO Q6H PRN (Reason: pain) Qty: 30 0RF hyoscyamine sulfate 0.125 mg tablet 0.125 mg PO Q6H PRN (Reason: bladder spasms) Qty: 20 2RF Continued carbidopa-levodopa [Sinemet] 25-100 mg tablet 1 tablet PO TID acetaminophen 500 mg Capsule 500 mg PO Q6H PRN (Reason: Pain) amlodipine [Norvasc] 5 mg tablet 2.5 mg PO QAM Qty: 30 3RF diclofenac sodium 75 mg tablet,delayed release (DR/EC) 75 mg PO BID Qty: 180 0RF Rx Instructions: with food
== END 2022-01-02 13:30 | disposition home or self-care (01) ==
LOC: ANHSURGERY 05:56 → ANHCPC 12:18 → ANH2MED 14:09
PROVIDERS: PCP Internal Medicine; Visit Provider Urology
PROC: 0VT04ZZ Resection of Prostate, Percutaneous Endoscopic Approach (ICD-10-PCS; CPT 55867; principal; 2022-01-01 07:30)
DX: C61 Malignant neoplasm of prostate (principal); K66.0 Peritoneal adhesions (postprocedural) (postinfection); I10 Essential (primary) hypertension; G20 Parkinson's disease; E78.00 Pure hypercholesterolemia, unspecified; Z85.028 Personal history of other malignant neoplasm of stomach; Z87.891 Personal history of nicotine dependence
CPT/HCPCS: 55866; 38571; S2900; 36415; 80048; 80053; 81001; 85014; 85018; 85025; 85610; 85730; 86850; 86900; 86901; 88305; 88309; 93005; A9270; J0131; J0690; J1100; J1170; J2250; J2405; J2704; J3010; J7030; J7120

== ENCOUNTER 2022-01-12 10:59 | Outpatient (CLI) | payer MEDICARE, SELFPAY ==
--- NOTE | ~2022-01-12 | XR_ITS ---
EXAMINATION: CYSTOGRAM DATE: 01/12/2022 11:40 INDICATION: Prostate cancer follow-up TECHNIQUE: Initial irrigation laborer radiograph of the pelvis was performed. There was retrograde administration of Omnipaque 350 mixed with saline contrast into patient's existing marrufo catheter. Fluoroscopic flex ges of the pelvis were obtained. A post-void image was also performed. Fluoroscopy time is 0.5 minute s. 9 fluoroscopic images. FINDINGS: There is normal filling of the bladder. Bladder wall is mildly trabeculated. There are pelv ic phleboliths. No evidence for bladder extravasation or vesicoureteral reflux. IMPRESSION: 1. Unremarkable postoperative cystogram without evidence for bladder extravasation or reflux. Reviewed, dictated and finalized at location A. NG UP SUPERVISOR IMPRESSION: 1. Unremarkable postoperative cystogram without evidence for bladder extravasa tion or reflux.
== END 2022-01-12 11:00 | disposition home or self-care (01) ==
PROVIDERS: PCP Internal Medicine; Visit Provider Urology
DX: C61 Malignant neoplasm of prostate (principal)
CPT/HCPCS: 51600; 74430; Q9967

== ENCOUNTER 2022-05-07 09:17 | Outpatient (CLI) | payer MEDICARE, SELFPAY ==
--- NOTE | ~2022-05-07 | MR_ITS ---
MRI of the brain Clinical History: Tremor Technique: Axial and sagittal T1-weighted images were acquired. These were followed by axial T2-weigh zach, diffusion weighted, gradient, and FLAIR images. Findings: No signal abnormality seen in the brain parenchyma. No acute infarct, intracranial hemorrha ge, or mass lesion. Ventricles and subarachnoid spaces are unremarkable. Orbits are unremarkable. Paranasal sinuses and m astoid air cells are clear. Major intracranial flow voids are intact. Sagittal midline structures are intact. IMPRESSION: Unremarkable exam. Reviewed, dictated and finalized at location M. IMPRESSION: Unremarkable exam.
== END 2022-05-07 09:18 | disposition home or self-care (01) ==
PROVIDERS: PCP Internal Medicine; Visit Provider Student in an Organized Health Care Education/Training Program
DX: G20 Parkinson's disease (principal)
CPT/HCPCS: 70551

== ENCOUNTER 2022-06-09 08:26 | Outpatient (CLI) | payer MEDICARE, SELFPAY ==
--- NOTE | 2022-06-09 11:15 | NEURO_ITS ---
Impression: Patient reports a history of right index finger weakness, muscle wasting of right abductor pollicis brevis. # Moderate right Carpal Tunnel Syndrome. # Chronic neurogenic changes in right 1st dorsal interosseus and abductor pollicis brevis on needle/EMG exam; These findings raise concern for a more proximal lesion, such as right C8/T1 radiculopathy. Please note, paraspinal muscles were not examined. # Clinical correlation recommended. Nerve Conduction Studies Anti Sensory Summary Table Stim Site NR Peak (ms) P-T Amp (?V) Site1 Site2 Delta-P (ms) Dist (cm) Cristi (m/s) Right Median Anti Sensory (2-3nd Digit) Wrist 4.4 18.5 Wrist 2-3nd Digit 4.4 14.0 32 Wrist 5.1 29.4 Wrist 2-3nd Digit 4.4 14.0 32 Right Radial Anti Sensory (Base 1st Digit) Wrist 2.7 15.2 Wrist Base 1st Digit 2.7 0.0 Right Ulnar Anti Sensory (5th Digit) Wrist 2.2 25.1 Wrist 5th Digit 2.2 14.0 64 Motor Summary Table Stim Site NR Onset (ms) O-P Amp (mV) Site1 Site2 Delta-0 (ms) Dist (cm) Cristi (m/s) Right Median Motor (Abd Poll Brev) Wrist 4.1 1.6 Elbow Wrist 5.4 25.0 46 Elbow 9.5 0.2 Right Ulnar Motor (Abd Dig Minimi) Wrist 3.1 3.9 A Elbow Wrist 6.0 31.0 52 A Elbow 9.1 2.8 B Elbow Wrist 3.9 21.0 54 B Elbow 7.0 2.9 F Wave Studies NR F-Lat (ms) L-R F-Lat (ms) Right Median (Mrkrs) (Abd Poll Brev) 29.77 Right Ulnar (Mrkrs) (Abd Dig Min) 28.57 EMG Side Muscle Nerve Root Ins Act Fibs Amp Dur Recrt Comment Right 1stDorInt Ulnar C8-T1 Nml Nml Nml Nml Reduced Right Ext Indicis Radial (Post Int) C7-8 Nml Nml Nml Nml Nml Right Ext Digitorum Radial (Post Int) C7-8 Nml Nml Nml Nml Nml Right BrachioRad Radial C5-6 Nml Nml Nml Nml Nml Right PronatorTeres Median C6-7 Nml Nml Nml Nml Nml Right Abd Poll Brev Median C8-T1 Nml Nml Nml Nml Reduced MTDD
== END 2022-06-09 08:27 | disposition home or self-care (01) ==
PROVIDERS: PCP Internal Medicine; Visit Provider Student in an Organized Health Care Education/Training Program
DX: G56.01 Carpal tunnel syndrome, right upper limb (principal); R94.131 Abnormal electromyogram [EMG]
CPT/HCPCS: 95886; 95909

== ENCOUNTER 2022-07-28 12:30 | Outpatient (RCR) | payer MEDICARE, SELFPAY ==
--- NOTE | 2022-06-30 13:58 | PTOPEVAL1 ---
Assessment and note entered by Gaston Michel, PT Evaluation Information Assessment Status Evaluation Diagnosis Parkinson's Disease Onset 2 years ago Subjective Information Patient reports he is very active playing pickleball and bowling frequently. Patient's main complaint is weakness in the R hand which he is seeing a neurosurgeon for this afternoon. ( recommend OT script if he wants to work on that after MD visit). is also present and reports the patient will cut corners short when walking otherwise is doing well. Reported Pain Level Pain Score 0: Self Report Assessment PT Clinical Summary Brayden is a 72 year old male coming into the clinic with a diagnosis of Parkinson's disease. He has a rounded posture, weakness in his scapular muscles and some high end balance issues. Physical therapy will work on addressing those deficits along with starting LSVT training. Plan of Care Interventions Electrical Stimulation,Gait Training,Hot Pack/Cold Pack,Manual Therapy,Neuro Re-education,Patient/ Caregiver Education,Therapeutic Activities, Therapeutic Exercise,Ultrasound Other Interventions taping, cupping, IASTM PT Services Indicated Yes Treatment Frequency and 2x/wk for 4 weeks Duration These treatments will address the objective and functional deficits as defined above. The patient will be advanced safely and appropriately in order for the patient to progress towards his/her prior level of function. Additional exercises will be introduced and as well as a comprehensive home exercise program upon discharge, if needed, ?to ensure carryover of functional gains achieved in the clinic. This treatment plan has been reviewed and agreement upon by the patient.
--- NOTE | 2022-07-28 13:05 | PTOPDC ---
Assessment and note entered by Gaston Michel, PT Evaluation Information Assessment Status Discharge Diagnosis Parkinson's Disease Onset 2 years ago Subjective Information Patient reports he is still staying active and wanting to hit the driving range soon. Patient reports biggest issue is posture which he has his HEP for. Patient thinks he wants to try to do his HEP and hold off on formal physical therapy until he is having more significant issues. Reported Pain Level Pain Score 0: Self Report Assessment PT Clinical Summary Brayden is a 72 year old male coming into the clinic with a diagnosis of PD. He was evaluated on and attended 7 sessions. Patient has partially met his strength and balance goals. Patient is okay with discharge with continuing HEP at home. Patient is aware he will need more therapy later, but for right now feels comfortable with where he is at and wants to enjoy life. Plan of Care PT Services Indicated No
== END 2022-07-28 14:41 | disposition home or self-care (01) ==
LOC: ANHPT 12:30
PROVIDERS: PCP Internal Medicine; Visit Provider Student in an Organized Health Care Education/Training Program
DX: G20 Parkinson's disease (principal)
CPT/HCPCS: 97110; 97161; 97530

== ENCOUNTER 2022-08-31 09:51 | Emergency (ER) | payer MEDICARE, SELFPAY ==
--- NOTE | ~2022-08-31 | XR_ITS ---
XR lumbar spine 2-3V DATE: 08/31/2022 12:37 INDICATION: Sciatica TECHNIQUE: AP, lateral, coned lateral lumbosacral views COMPARISON: 06/20/2019 lumbar spine FINDINGS: Mild thoracolumbar levoscoliosis. There is severe degenerative disc disease and mild retrolisthesis at L1-2, L2-3. Moderate degenerative disc disease at L3-4 and L4-5. Moderately severe degenerative disease at L5-S1. There is degenerative change at the apophyseal joints with associated grade 1 anterolisthesis at L4-5 . No fracture or bone destruction is evident. Included lower thoracic and lumbar pedicles are intact. The sacroiliac joints are intact. IMPRESSION: Severe degenerative disc disease and mild retrolisthesis at L1-2 and L2-3 Moderate degenerative disc disease at L3-4, L4-5 Moderately severe degenerative disc disease at L5-S1 Grade 1 anterolisthesis at L4-5 due to degenerative change at the apophyseal joints Reviewed, dictated and finalized at location B. IMPRESSION: Severe degenerative disc disease and mild retrolisthesis at L1-2 an d L2-3 Moderate degenerative disc disease at L3-4, L4-5 Moderately severe degenerative disc disease at L5-S1 Grade 1 anterolisthesis at L4-5 due to degenerative change at the apophyseal ashley ints
--- NOTE | ~2022-08-31 | XR_ITS ---
XR hip BI 2V w AP pelvis DATE: 08/31/2022 12:37 INDICATION: Bilateral hip pain TECHNIQUE: AP pelvis. AP and lateral views of each hip. COMPARISON: None FINDINGS: Normal alignment at the pubic symphysis and sacroiliac joints. No pelvic fracture or bone d estruction is detected. No fracture or dislocation, avascular necrosis or bone destruction is noted either hip. IMPRESSION: No significant abnormality Reviewed, dictated and finalized at location B. IMPRESSION: No significant abnormality
[2022-08-31 09:52] VITALS: BP 160/93; PULSE 75; RESP 18; TEMP 36.4; O2SAT 100
[2022-08-31 12:09] LABS: Basophils Percent Auto 0.5 % (0.2-1.2); Eosinophils Absolute Auto 0.1 K/mm3 (0-0.3); Hematocrit 42.8 % (42.0-52.0); Hemoglobin 13.9 g/dL (14.0-18.0); Immature Granulocyte Absolute 0.01 K/mm3 (0.00-0.031); Immature Granulocyte Percent A 0.2 % (0-0.5); Lymphocytes Absolute Auto 1.16 K/mm3 (0.9-3.2); Lymphocytes Percent Auto 20.9 % (18.3-44.2); Mean Corpuscular HGB Conc 32.5 g/dl (32-36); Mean Corpuscular Hemoglobin 31.6 pg (26-34); Mean Corpuscular Volume 97.3 fl (80-100); Mean Platelet Volume 9.4 fl (7.4-10.4); Monocytes Absolute Auto 0.4 K/mm3 (0.1-0.6); Monocytes Percent Auto 7.7 % (2.6-8.5); Neutrophils Absolute Auto 3.8 K/mm3 (1.3-6.7); Neutrophils Percent Auto 68.7 % (45.5-73.1); Platelet Count Result 213 k/mm3 (150-375); White Blood Count 5.6 K/mm3 (4.5-10.0)
--- NOTE | 2022-08-31 12:10 | ED.GENADULT ---
HPI - General Adult General Chief complaint: Back Pain/Injury Stated complaint: Sciatic pain, back and leg Time Seen by Provider: 08/31/22 11:28 Source: patient, RN notes reviewed and old records reviewed Mode of arrival: ambulatory Limitations: no limitations History of Present Illness HPI narrative: THis is a 72 year old male with history of arthritis and parkinsons who presents for evaluation of bilateral leg pain. PAtient states he has noticed pain to bilateral thighs with standing since Wednesday. HE denies any back pain, leg weakness, numbness, tingling. He describes his pain has sharp. She denies any urinary issues. HE denies history of sciatica. HE denies leg swelling. Related Data Home Medications Medication Instructions Recorded Confirmed amlodipine 5 mg tablet 5 mg PO DAILY 08/07/22 08/07/22 Allergies Allergy/AdvReac Type Severity Reaction Status Date / Time No Known Allergies Allergy Verified 08/31/22 11:15 Review of Systems Constitutional: Constitutional: Denies weakness Cardiovascular: Cardiovascular: Denies syncope, Denies rapid heart rate, Denies irregular heart rhythm, Denies leg edema and Denies dyspnea Respiratory: Respiratory: Denies chest congestion, Denies hemoptysis, Denies excessive phlegm production and Denies dyspnea Gastrointestinal: Gastrointestinal: Denies abdominal pain, Denies hematochezia, Denies diarrhea and Denies vomiting Genitourinary: Genitourinary: Denies hematuria, Denies dysuria, Denies penile discharge and Denies testicular pain Musculoskeletal: Musculoskeletal: Denies joint swelling, Denies loss of height and Denies muscle weakness Neurologic: Denies syncope, Denies focal weakness and Denies weakness PMF Past Medical History Medical History Essential (primary) hypertension History of blood transfusion History of stomach cancer Parkinson disease Pure hypercholesterolemia Surgical History Surgical History H/O inguinal hernia repair x2 History of surgery for malignant neoplasm of the stomach Hx of cataract surgery Hx of prostatectomy 12/2021 Family History Family History Mother Hypertension Father Family history of malignant neoplasm of thyroid Sibling Cancer Social History Social History Smoking status: Former smoker Second hand tobacco smoke exposure: No Additional smoking assessment comments: STATES SMOKED WHEN BOWLING 1PK/EVERY COUPLE OF MONTHS/5 YRS Alcohol intake: current Drinks per week: 14 Substance use: never Substance use type: does not use Lack of Transportation: No Lack of Food: Never True Current Housing: I Have Housing Concerned About Future Housing: No Difficulty Paying Gas/Electric Bills: No Difficulty Paying for Meds: No Currently Unemployed: No Education: Bachelor's Degree Difficulty w/ Childcare or Family Care: No Living arrangements: with family Occupation/Education: retired Gender identity (if verbalized by the patient): Male Spiritual care concerns: No Exam Const: General: no acute distress and alert Orientation/consciousness: patient oriented x3 Limitations: no limitations HENMT: Head: normal to inspection Eyes: EOM: EOMs intact bilaterally Chest: Chest palpation & inspection: normal inspection of the chest Resp: Effort & Inspection: normal respiratory effort Auscultation: clear to auscultation bilaterally Cardio: Rate: regular rate Rhythm: regular rhythm Heart sounds: no murmurs GI: GI Palp: Yes Soft to palpation, No Tenderness to palpation present (GI), No Guarding due to palpation present (GI) and No Rigid due to palpation Auscultation: normal bowel sounds Back/Spine/Pelvis: Back: no CVA tenderness Thoracic/Lumbar Spine: thoracic and lumba
[2022-08-31 12:27] LABS: Alanine Aminotransferase 11 U/L (6-50); Albumin Level 4.8 g/dL (3.5-5.1); Alkaline Phosphatase 70 U/L (38-126); Anion Gap 6 mmol/L (8-16); Aspartate Amino Transferase 31 U/L (17-59); Bilirubin,Total 2.4 mg/dL (0.2-1.3); Blood Urea Nitrogen 33 mg/dL (9-20); Calcium 9.1 mg/dL (8.4-10.2); Carbon Dioxide 33 mmol/L (22-30); Chloride 101 mmol/L (98-107); Creatine Kinase 137 U/L (55-170); Estimated CRCL calculation 47 ml/min; Estimated Glomerular Filt Rate 50; Glucose 100 mg/dL (65-110); Potassium 4.7 mmol/L (3.4-5.0); Sodium 140 mmol/L (137-145)
[2022-08-31 13:24] VITALS: BP 170/90; PULSE 59; RESP 18; O2SAT 100
== END 2022-08-31 13:32 | disposition home or self-care (01) ==
PROVIDERS: Emergency Provider General Practice; PCP Internal Medicine
DX: M51.37 Other intervertebral disc degeneration, lumbosacral region (principal); I10 Essential (primary) hypertension; G20 Parkinson's disease; E78.5 Hyperlipidemia, unspecified
CPT/HCPCS: 36415; 72100; 73521; 80053; 82550; 85025; 99284

== ENCOUNTER 2022-10-15 08:28 | Outpatient (CLI) | payer MEDICARE, SELFPAY ==
--- NOTE | ~2022-10-15 | MR_ITS ---
MRI of the lumbar spine Clinical History: Sciatica Technique: Axial T2-weighted images, and sagittal T1-weighted, T2-weighted, and T2 fat-sat images wer e acquired. Findings: No acute fracture seen. There is 3 mm retrolisthesis of L1 over L2. There is 7 mm retrolist hesis of L2 over L3. There is 4 mm anterolisthesis of L4 over L5. No suspicious bone marrow signal ab normality seen. At L1-L2, there is moderate degenerative disc narrowing with minimal disc bulge and mild facet arthro ad. No central canal stenosis. There is moderate to advanced bilateral neural foraminal narrowing. At L2-L3, there is severe degenerative disc narrowing with moderate facet arthropathy. No darline centr al canal stenosis. There is severe bilateral neural foraminal narrowing and lateral recess stenosis. At L3-L4, there is diffuse disc bulge and severe facet arthropathy, resulting in severe spinal canal stenosis/thecal sac compression. There is severe bilateral neural foraminal compromise, left worse th an right. At L4-L5, there is diffuse disc bulge and severe facet arthropathy, resulting in moderate to severe c entral canal stenosis and left lateral recess stenosis. There is mild bilateral neural foraminal narr owing. At L5-S1, there is disc bulge and moderate to advanced facet arthropathy. No central canal stenosis. There is moderate left neural foraminal narrowing, and mild right neural foraminal narrowing. Paravertebral soft tissues are unremarkable. 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 Severe degenerative spondylosis at L3-L4 and L4-L5, as detailed above. Moderate to severe degenerative spondylosis at L2-L3. Moderate degenerative spondylosis at L1-L2 and L5-S1. Reviewed, dictated and finalized at [facility]. 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 Severe degenerative spondylosis at L3-L4 and L4-L5, as detailed above. Moderate to severe degenerative spondylosis at L2-L3. Moderate degenerative spondylosis at L1-L2 and L5-S1.
== END 2022-10-15 08:29 | disposition home or self-care (01) ==
PROVIDERS: PCP Internal Medicine; Visit Provider Student in an Organized Health Care Education/Training Program
DX: M51.36 Other intervertebral disc degeneration, lumbar region (principal); M51.37 Other intervertebral disc degeneration, lumbosacral region; M47.896 Other spondylosis, lumbar region
CPT/HCPCS: 72148

== ENCOUNTER 2022-10-26 09:45 | Outpatient (RCR) | payer MEDICARE, SELFPAY ==
--- NOTE | 2022-09-03 17:59 | PTOPPROG ---
Assessment and note entered by Wicho Griffith, PT Evaluation Information Assessment Status Evaluation Diagnosis Dorsalgia Onset 08/27/22 Subjective Information Reports that he had acute onset of sciatica in the last week. Pain is going down both legs. Pain travels down to back of legs but not to feet. Denies falls or any new medications. Assessment PT Clinical Summary Patient presents with signs and symptoms consistent with extension based stenotic issues. Demonstrate pain relief with flexion and distraction based activity this date. Will benefit from skilled therapy to address these deficits for functional improvement and pain relief. Plan of Care Interventions Manual Therapy,Therapeutic Activities,Therapeutic Exercise PT Services Indicated Yes These treatments will address the objective and functional deficits as defined above. The patient will be advanced safely and appropriately in order for the patient to progress towards his/her prior level of function. Additional exercises will be introduced and as well as a comprehensive home exercise program upon discharge, if needed, ?to ensure carryover of functional gains achieved in the clinic. This treatment plan has been reviewed and agreement upon by the patient.
--- NOTE | 2022-09-03 18:00 | OPREHPOC ---
Outpatient Therapy Plan of Care This is a Multidisciplinary Plan of Care that may contain components documented by all disciplines (PT, OT, and ST.) PT Problem 1 PT Problem #1 Knowledge Deficit PT Goal 1 Goal [place] with lumbar stability and hip mobility HEP Target Visit 8 PT Problem 2 PT Problem #2 Pain PT Goal 1 Goal Report no pain greater than 1/10 with sit to stand Target Visit 8 PT Problem 3 PT Problem #3 Impaired Flexibility PT Goal 1 Goal Improve [place] HS 90/90 to 30- degrees for reduced posterior pelvic pull with squatting actvity PT Goal 2 Goal Demonstrate minimal non painful restriction in [place] Piriformis testing Target Visit 8 PT Problem 4 PT Problem #4 Impaired Functional ADLs PT Goal 1 Goal Patient will demonstrate ability to perform floor retrieval with out assistance and pain for functional reach and age related exercise activity Target Visit 8
--- NOTE | 2022-10-01 10:06 | PTOPPROG ---
Assessment and note entered by Wicho Griffith, PT Evaluation Information Assessment Status Progress Diagnosis Dorsalgia Onset 08/27/22 Subjective Information Reports that since starting therapy he has not noted a significant decrease in pain symptoms. He does feel that the stretching had helped but he is still having a lot of trouble with coming to stand and getting moving in the morning. Mornings are always worse for him. Assessment PT Clinical Summary Patient has seen progress in joint mobility, flexibility, and hip strength. Pain has not been significantly improved at this point which has been the patient's primary concern. He continues to show signs and symptoms consistent with extension based stenotic pain. Will likely benefit from additional imaging to assess level of structural involvement on nerve compromise. Will continue to benefit from skilled therapy to address remaining pain, ROM, and strength deficits . Plan of Care Interventions Manual Therapy,Therapeutic Activities,Therapeutic Exercise PT Services Indicated Yes These treatments will address the objective and functional deficits as defined above. The patient will be advanced safely and appropriately in order for the patient to progress towards his/her prior level of function. Additional exercises will be introduced and as well as a comprehensive home exercise program upon discharge, if needed, ?to ensure carryover of functional gains achieved in the clinic. This treatment plan has been reviewed and agreement upon by the patient.
--- NOTE | 2022-10-01 10:07 | OPREHPOC ---
Outpatient Therapy Plan of Care This is a Multidisciplinary Plan of Care that may contain components documented by all disciplines (PT, OT, and ST.) PT Problem 1 PT Problem #1 Knowledge Deficit PT Goal 1 Goal [place] with lumbar stability and hip mobility HEP Target Visit 8 Progress Met PT Problem 2 PT Problem #2 Pain PT Goal 1 Goal Report no pain greater than 1/10 with sit to stand Target Visit 8 Progress Not Met Comment Pain has continued to be consistent at 6/10 PT Problem 3 PT Problem #3 Impaired Flexibility PT Goal 1 Goal Improve [place] HS 90/90 to 30- degrees for reduced posterior pelvic pull with squatting activity Target Visit 8 Progress Partially Met Comment Progress has been seen [place] with 10+ degrees bilaterally PT Goal 2 Goal Demonstrate minimal non painful restriction in [place] Piriformis testing Target Visit 8 Progress Partially Met Comment Decreased severity noted with stretch and mobilization PT Problem 4 PT Problem #4 Impaired Functional ADLs PT Goal 1 Goal Patient will demonstrate ability to perform floor retrieval with out assistance and pain for functional reach and age related exercise activity Target Visit 8 Progress Partially Met Comment No pain on flexion. Increased pain on extension with 5# and 20# lift. Less with 20# lift.
--- NOTE | 2022-10-26 11:53 | PCPTNOTE ---
10-26-22: this date: pt was seen by PT and ACADEMY EDUCATION DIRECTOR-- I did PT d/c assessment prior to ACADEMY EDUCATION DIRECTOR doing PT treatment.
--- NOTE | 2022-10-26 11:55 | PTOPDC ---
Assessment and note entered by Sujata Eric, PT Evaluation Information Assessment Status Discharge Diagnosis Dorsalgia Onset 08/27/22 Subjective Information is doing the exercises at home; told him he has a bulging disc and has an appointment with neurosurgeon in November; Reported Pain Level Pain Score 5: Self Report Pain Score 5: Self Report Additional Pain Score Comments pain range in the past week of 3-8/10; both sides of low back, radicular posterior thigh and both feet are numb and tingle. reinforced pain management technique of activity/ rest, monitor posture and use heat/ice PRN Assessment PT Clinical Summary Zechariah has received 16 PT sessions. Compared to the initial evaluation: he continues to have radicular pain to both feet; slight increase in hamstring flexibility; increase trunk and hip strength with increased awareness of posture and body positioning; education completed for HEP. The goals were partially met. Discharge PT services. He is to continue with his HEP. And has a neurosurgery consult in November. Plan of Care PT Services Indicated no
== END 2022-10-29 09:06 | disposition home or self-care (01) ==
LOC: ANHPT 09:45
PROVIDERS: PCP Internal Medicine; Visit Provider Internal Medicine
DX: M54.9 Dorsalgia, unspecified (principal)
CPT/HCPCS: 97110; 97112; 97140; 97161; 97530

== ENCOUNTER 2022-12-18 07:34 | Outpatient (CLI) | payer MEDICARE, SELFPAY ==
--- NOTE | ~2022-12-18 | XR_ITS ---
XR lumbar spine min 4V DATE: 12/18/2022 08:29 INDICATION: Low back pain radiating into both legs TECHNIQUE: Standing AP, lateral and flexion and extension lateral views COMPARISON: 10/15/2022 MRI lumbar spine 08/31/2022 lumbar spine FINDINGS: There is moderate degenerative disc disease and approximately 5 mm retrolisthesis at L1-2. There is severe degenerative disc disease and approximately 5.5 mm retrolisthesis at L2-3. There is moderate degenerative disc disease and minimal retrolisthesis at L3-4. There is mild degenerative disc disease at L4-5. There is prominent degenerative change at the apophyseal joints particularly at L4-5 and L5-S1 with a ssociated grade 1 anterolisthesis at L4-5. There is moderately prominent loss of interspace height at L5-S1. No fracture or bone destruction of the lumbar spine is evident. Included lower thoracic and lumbar pe dicles are intact. No instability is evident on flexion or extension. The sacroiliac joints appear normal. IMPRESSION: Multilevel degenerative disc disease, most severe at L2-3 Degenerative changes apophyseal joints with associated grade 1 anterolisthesis of L4-5 Reviewed, dictated and finalized at location B.
--- NOTE | ~2022-12-18 | MR_ITS ---
EXAMINATION: MR cervical spine wo con DATE: 12/18/2022 08:16 INDICATION: Radiculopathy, cervical region. TECHNIQUE: Magnetic resonance imaging (MRI) of the cervical spine was performed without intravenous c ontrast. COMPARISON: Cervical spine MRI 10/02/2021 FINDINGS: There is 10 degrees levoscoliosis of cervicothoracic spine. There is 2 mm anterolisthesis o f C5 and C6 and 2 mm retrolisthesis of C6 on C7. Vertebral body heights are normal. There is moderate ly decreased disc height at C4-C5 and severely decreased disc height at C5-C6, C6-C7, and C7-T1. Ther e are disc calcifications at C2-C3 and C5-C6. The spinal cord signal intensity is normal. The followi ng disc levels are specifically discussed: C2-C3: The disc does not extend beyond the endplate margin. There is ankylosis of the uncovertebral j oints. There is ankylosis of the facet joints with moderate hypertrophy. There is mild left neural fo raminal stenosis. There is no central canal stenosis. C3-C4: There is a central protrusion. There is mild right and moderate left uncovertebral joint osteo arthritis. There is moderate right and severe left facet joint osteoarthritis. There is mild right an d moderate left neural foraminal stenosis. There is mild central canal stenosis. C4-C5: The disc is bulging. There is severe bilateral uncovertebral joint osteoarthritis. There is mo derate right and severe left facet joint osteoarthritis. There is mild right and moderate left neural foraminal stenosis. There is mild central canal stenosis. C5-C6: The disc does not extend beyond the endplate margin. There is ankylosis of the uncovertebral j oints with moderate hypertrophy. There is ankylosis of the facet joints with severe hypertrophy. Ther e is mild bilateral neural foraminal stenosis. There is mild central canal stenosis. C6-C7: The disc is bulging. There is severe bilateral uncovertebral joint osteoarthritis. There is se catrina right and mild left facet joint osteoarthritis. There is moderate right and mild left neural for aminal stenosis. There is mild central canal stenosis with ventral indentation of the spinal cord. C7-T1: The disc is bulging. There is severe bilateral uncovertebral joint osteoarthritis. There is se catrina right and moderate left facet joint osteoarthritis. There is mild bilateral neural foraminal rios nosis. There is mild central canal stenosis. IMPRESSION: 1. Severe cervical spondylosis, stable from 10/02/2021. Reviewed, dictated and finalized at location E.
== END 2022-12-18 07:35 | disposition home or self-care (01) ==
PROVIDERS: PCP Internal Medicine; Visit Provider Neurological Surgery
DX: M47.22 Other spondylosis with radiculopathy, cervical region (principal); M51.36 Other intervertebral disc degeneration, lumbar region
CPT/HCPCS: 72110; 72141

== ENCOUNTER 2024-04-20 14:24 | Outpatient (CLI) | payer MEDICARE, SELFPAY ==
--- NOTE | ~2024-04-20 | XR_ITS ---
3 VIEWS LUMBAR SPINE Ordering provider: Jacquelin Zarate MD History: . M48.061 - Spinal stenosis, lumbar region without neurogen... . Comparison: December 18, 2022 FINDINGS: VERTEBRAL BODIES:Minimal anterolisthesis at the level of L4-L5. No visible fracture or subluxation. P ossible spondylolysis at the level of L5-S1. Dextroscoliosis. DISK SPACES: Narrowing of the disc L1-L2, L2-L3 and L5-S1. Multilevel facet joint disease. SOFT TISSUES: Normal. IMPRESSION: No acute osseous abnormality lumbar spine. Multilevel degenerative disc disease. Reviewed, dictated and finalized at location A. E MACHINE OPERATOR
--- OUTSIDE RECORDS SUMMARY | 2024-04-20 15:46 | XMS_ITS | Encounter Summary ---
Author Organization [facility] Address [address] [place] [address] Care Team Providers Care Manifold Builder Name Role Phone Unavailable Primary Care Provider Unavailabl e Encounter Details Date Type Department Care Team (Late st Contact Info) Description 11/30/2023 Lab Requisition [facility] - DermPath Lab [address] [place] [phone] Trev Melo MD [facility] [address] [place] [phone] Neoplasm of uncertain behavior of skin Social History Tobacco Use Types Packs/Day Years Used Date Smoking Tobacco: Never Assessed Sex and Gender Information Value Date Recorded Sex Assigned at Not on file Gender Identity Not on file Sexual Orientation Not on file documented as of this encounter Plan of Treatment Not on file documented as of this encounter Procedures Procedure Name Priority Date/Time Associated Diagnosis Comments DERMATOPATHOLOGY Routine 11/30/2023 12:0 0 AM CDT Neoplasm of uncertain behavior of skin documented in this encounter Results * DERMATOPATHOLOGY (11/30/2023 12:00 AM CDT) Case Report Dermatopathology Report Case: [id number] Authorizing Provider: Trev Melo MD Collected: 11/30/2023 12:00 AM Ordering Location: [facility] - Received: 12/01/2023 11:24 AM DermPath Lab Pathologist: Nazia Peters MD Specimen: Skin, left chest 1:53 PM CDT DERMATOPATHOLOGY LABORATORY Final Diagnosis Specimen A. SKIN, left chest: HYPERPLASTIC (HYPERTROPHIC) ACTINIC KERATOSIS (L57.0) 1:53 PM CDT DERMATOPATHOLOGY LABORATORY Clinical History Superficial BCC 1:53 PM CDT DERMATOPATHOLOGY LABORATORY Gross Description Specimen A: Received is one formalin filled container labeled with the patient's name and designated left chest. The specimen consists of a shave biopsy measuring 8x6x1 mm. Jar 0. 1:53 PM CDT DERMATOPATHOLOGY LABORATORY Microscopic Description Specimen A. SKIN, left chest: There is hyperkeratosis alternating with parakeratosis. There is epidermal hyperplasia with disorderly maturation of keratinocytes with nuclear pleomorphism confined to the lower half of the epidermis. 1:53 PM CDT DERMATOPATHOLOGY LABORATORY Disclaimer An external and internal positive and negative controls are appropriate for the histochemical, immunohistochemical and immunofluorescence stain(s) in this case (if any), except where stated explicitly. The performance characteristics of the stain(s) cited in this report were developed and its performance characteristic determined by the Dermatopathology Laboratory at [facility], directed by Dr. Colby Medina. These tests need not be, and therefore are not, approved by the [place] Food and Drug Administration. The tests are used for clinical purposes. Billing Codes Specimen Charges Stain Charges 22392 1 1:53 PM CDT DERMATOPATHOLOGY LABORATORY Embedded Images 1:53 PM CDT DERMATOPATHOLOGY LABORATORY Pathology/Cytolog y TISSUE SPECIMEN FROM SKIN / Unknown 11/30/2023 12/01/2023 11:24 AM CDT Trev Melo MD LAB - PATHOLOGY/CYTO LOGY ORDERABLES DERMATOPATHOLOGY LABORATORY [facility] - Department of Dermatology [facility] [address] [place] [address], [address] [phone] documented in this encounter Visit Diagnoses Diagnosis Neoplasm of uncertain behavior of skin documented in this encounter
--- OUTSIDE RECORDS SUMMARY | 2024-04-20 15:46 | XMS_ITS | Clinical Summary ---
Author Organization [facility] [address] Address [address] [place] [address] Care Team Providers Care Production Operations Manager Name Role Phone Neel Busch MD Primary Care Provider +1- [phone] Allergies No known active allergies Medications diclofenac DR (VOLTAREN) 75 mg EC tablet Take 75 mg by mouth daily Active carbidopa-levod opa (SINEMET) 25-100 mg per tabletIndicatio ns:Parkinsonism Take 1 tablet by mouth 3 (three) times a day 270 tablet 3 01/21/2021 Active methylPREDNISol one (Medrol, Evens,) 4 mg DosepackIndicat ions:Weakness of hand Take as directed on package 1 packet 02/24/2021 Active methylPREDNISol one (Medrol, Evens,) 4 mg DosepackIndicat ions:Weakness of hand Take as directed on package 1 packet 02/24/2021 Active Active Problems Problem Noted Date Diagnosed Date Parkinson's disease 10/25/2020 Assessment & Plan (01/21/2021 12:21 PM SPECIAL EDUCATION SUPERVISOR): Patient continues on Sinemet 25/100 t.i.d. at this time with good tolerability and symptomatic efficacy. I have renewed his Sinemet at present dosing and he will follow-up in neurology clinic in a year. Assessment & Plan (10/25/2020 3:48 PM CDT): Patient has clinical and historical features consistent with Parkinson's disease specifically a rhythmical left upper extremity tremor at pill-rolling type at rest in addition to cogwheeling and bradykinesia in the left limbs relative to the right consistent with hemibody parkinsonism. I will place him on a trial of Sinemet 25/100 t.i.d.. I will see him back in for neurological reassessment on treatment in 3 months time. Weakness of hand 10/25/2020 Assessment & Plan (10/25/2020 3:50 PM CDT): Patient has isolated weakness of the right index finger flexors at the interphalangeal joints both proximal and distal. Limited prior EMG/NCS testing suggested median entrapment neuropathy but given the isolated digital location this would be unlikely clinically and the fact he had decompressive surgery with no benefit is confirming. He is scheduled to see as another hand surgeon for a 2nd opinion and may ultimately need more detailed EMG/NCS testing. If so needed I would recommend referral to [facility] as such testing is not offered through this practice. Surgical History Surgery Date Site/Laterality Comments TUMOR REMOVAL GIST tumor HERNIA REPAIR CATARACT EXTRACTION Medical History Medical History Date Comments Allergic rhinitis Acid indigestion Gastrointestinal stromal tumor (GIST) (HCC) Arthritis Sleep apnea Cataracts, bilateral Cancer (HCC) Family History Medical History Relation Name Comments No Known Problems Brother 1 No Known Problems Brother 2 Pneumonia Father Diabetes Mother Hypertension Mother Relation Name Status Comments Brother 1 Alive Brother 2 Alive Father (Age 93) Mother Alive Sister Alive Social History Tobacco Use Types Packs/Day Years Used Date Smoking Tobacco: Former Smokeless Tobacco: Former Personal Safety Answer Date Recorded Getting School Help Needed Not on file 02/14 Sex and Gender Information Value Date Recorded Sex Assigned at Not on file Legal Sex Male 8:13 PM SPECIAL EDUCATION SUPERVISOR Gender Identity Male 12/02/2020 1:36 PM CDT Sexual Orientation Choose not to disclose 2020 1:36 PM CDT Obstetrics History Last Filed Vital Signs Vital Sign Reading Time Taken Comments Blood Pressure 160/92 01/21/2021 11:50 AM SPECIAL EDUCATION SUPERVISOR Pulse 90 01/21/2021 11:50 AM SPECIAL EDUCATION SUPERVISOR Temperature 36.2 C (97.1 F) 01/21/2021 11:50 AM SPECIAL EDUCATION SUPERVISOR Respiratory Rate - - Oxygen Saturation 97% 05/28/2020 9:10 AM CDT Inhaled Oxygen Concentration - - Weight 105.2 kg (232 lb) 01/21/2021 11:50 AM SPECIAL EDUCATION SUPERVISOR Height 182.9 cm (6') 01/21/2021 11:50 AM SPECIAL EDUCATION SUPERVISOR Body Mass Index 31.46 01/21/2021 11:50 AM SPECIAL EDUCATION SUPERVISOR Plan of Treatment Not on file Insurance [facility] MDCR HMO REF MEDICARE SOLUTIONS Care Teams Production Operations Manager Relationship Specialty Start Date End Date Neel Busch MD [address] [facility] [address] [place] [address] PCP - General Internal Medicine 05/11/20
--- OUTSIDE RECORDS SUMMARY | 2024-04-20 15:47 | XMS_ITS | Referral Summary ---
Author Organization [facility] Address [address] [facility] [place] [address] Care Team Providers Care Wire Drawer Name Role Phone Unavailable Primary Care Provider Unavailabl e Source Comments [facility],non-owned Affiliates and Associated Physician Practices is amultiple site organization consisting of ambulatory clinics and hospital sitesin [place], [place], [place] and [place]. This disclosure is being madepursuant to the Care Everywhere program and may not contain all information available regarding this patient. Last updated 17.[facility] [employer] Social History Tobacco Use Types Packs/Day Years Used Date Smoking Tobacco: Never Assessed Sex and Gender Information Value Date Recorded Sex Assigned at Not on file Gender Identity Not on file Sexual Orientation Not on file Plan of Treatment Not on file
--- OUTSIDE RECORDS SUMMARY | 2024-04-20 15:47 | XMS_ITS | Clinical Summary ---
Author Organization [facility] Address [address] [facility] [place] [address] Care Team Providers Care Agricultural Equipment Test Engineer Name Role Phone Unavailable Primary Care Provider Unavailabl e Source Comments [facility] [employer],non-owned Affiliates and Associated Physician Practices is amultiple site organization consisting of ambulatory clinics and hospital sitesin [place], [place] and [place]. This disclosure is being madepursuant to the Care Everywhere program and may not contain all information available regarding this patient. Last updated 17.[facility] [employer] Social History Tobacco Use Types Packs/Day Years Used Date Smoking Tobacco: Never Assessed Sex and Gender Information Value Date Recorded Sex Assigned at Not on file Gender Identity Not on file Sexual Orientation Not on file Plan of Treatment Health Maintenance Due Date Last Done Comments COLOGUARD (AGES 45-75) - COL ON CA SCREENING 1948 COLON MONITORING 1948 COLONOSCOPY - COLON CA SCREENING 1948 CT COLONOGRAPHY - COLON CA SCREENING 1948 Colorectal Cancer Screening 1948 FIT - COLON CA SCREENING 1948 FLEX SIG - COLON CA SCREENING 1948 LIPID TESTING 1948 HEPATITIS C SCREENING 04/26/1966 DTAP/TDAP/TD VACCINES (1 - Tdap) 05/01/1967 PNEUMOCOCCAL VACCINE 50+ (1 of 1 - PCV) 1998 ZOSTER VACCINE (1 of 2) 1998 Respiratory Syncytial Virus (RSV) Vaccine Pt: or over 60 yrs (1 - 1-dose 75+ series) 05/01/2023 COVID-19 VACCINE ( - 2023-2 5 season) 2023 INFLUENZA VACCINE (#1) 2023 DEPRESSION SCREENING 02/16/2024 MEDICARE AWV CALENDAR YEAR 2024 HEPATITIS B VACCINE Aged Out No longe r eligible based on patient's age to complete this topic HIB VACCINE Aged Out No longer eligi ble based on patient's age to complete this topic HPV VACCINE Aged Out No longer eligi ble based on patient's age to complete this topic MENINGOCOCCAL (Group B) VACCINE Aged Out No longer eligible based on patient's age to complete this topic MENINGOCOCCAL VACCINE Aged Out No lasha fahad eligible based on patient's age to complete this topic
--- OUTSIDE RECORDS SUMMARY | 2024-04-20 15:47 | XMS_ITS | Patient Health Summary ---
Author Organization [facility] Address [address] [facility] [place] [address] Care Team Providers Care Forecast Analyst Name Role Phone Unavailable Primary Care Provider Unavailabl e Note from [facility],non-owned Affiliates and Associated Physician Practices is amultiple site organization consisting of ambulatory clinics and hospital sitesin [place], [place], [place] and [place]. This disclosure is being madepursuant to the Care Everywhere program and may not contain all information available regarding this patient. Last updated 17.[facility] Social History Tobacco Use Types Packs/Day Years Used Date Smoking Tobacco: Never Assessed Sex and Gender Information Value Date Recorded Sex Assigned at Not on file Gender Identity Not on file Sexual Orientation Not on file Procedures * DERMATOPATHOLOGY(Performed 11/30/2023) Performed for Neoplasm of uncertain behavior of skin Results * DERMATOPATHOLOGY (11/30/2023 12:00 AM CDT) Case Report Dermatopathology Report Case: [id number] Authorizing Provider: Trev Melo MD Collected: 11/30/2023 12:00 AM Ordering Location: [facility] - Received: 12/01/2023 11:24 AM [...] characteristic determined by the Dermatopathology Laboratory at [facility], directed by Dr. Colby Medina. These tests need not be, and therefore are not, approved by the [place] Food and Drug Administration. The tests are used for clinical purposes. Billing Codes Specimen Charges Stain Charges 70951 1 1:53 PM CDT DERMATOPATHOLOGY LABORATORY Embedded Images 1:53 PM CDT DERMATOPATHOLOGY LABORATORY Pathology/Cytolog y TISSUE SPECIMEN FROM SKIN / Unknown 11/30/2023 12/01/2023 11:24 AM CDT Trev Melo MD LAB - PATHOLOGY/CYTO LOGY ORDERABLES DERMATOPATHOLOGY LABORATORY [facility] - Department of Dermatology [address], [address] [phone]
--- OUTSIDE RECORDS SUMMARY | 2024-04-20 15:47 | XMS_ITS | Referral Summary ---
Author Organization [facility] [address] Address [address] [place] [address] Care Team Providers Care Livestock Haulier Name Role Phone Neel Busch MD Primary Care Provider +1- [phone] Allergies No known active allergies Medications diclofenac [...] 10/25/2020 Assessment & Plan (01/21/2021 12:21 PM LOSS PREVENTION SPECIALIST): Patient continues on Sinemet 25/100 t.i.d. at [...] so needed I would recommend referral to [facility] as such testing is not offered through this practice. Social History Tobacco Use Types Packs/Day Years Used Date Smoking Tobacco: Former Smokeless Tobacco: Former Personal Safety Answer Date Recorded Getting School Help Needed Not on file 02/14 Sex and Gender Information Value Date Recorded Sex Assigned at Not on file Legal Sex Male 8:13 PM LOSS PREVENTION SPECIALIST Gender Identity Male 12/02/2020 1:36 PM CDT Sexual Orientation Choose not to disclose 2020 1:36 PM CDT Last Filed Vital Signs Vital Sign Reading Time Taken Comments Blood Pressure 160/92 01/21/2021 11:50 AM LOSS PREVENTION SPECIALIST Pulse 90 01/21/2021 11:50 AM LOSS PREVENTION SPECIALIST Temperature 36.2 C (97.1 F) 01/21/2021 11:50 AM LOSS PREVENTION SPECIALIST Respiratory Rate - - Oxygen Saturation 97% 05/28/2020 9:10 AM CDT Inhaled Oxygen Concentration - - Weight 105.2 kg (232 lb) 01/21/2021 11:50 AM LOSS PREVENTION SPECIALIST Height 182.9 cm (6') 01/21/2021 11:50 AM LOSS PREVENTION SPECIALIST Body Mass Index 31.46 01/21/2021 11:50 AM LOSS PREVENTION SPECIALIST Plan of Treatment Not on file Insurance [facility] MDCR HMO REF [facility] MEDICARE Address: [place] [id number] MEDICARE SOLUTIONS [facility] MEDICARE Address: [address] [address] Care Teams Livestock Haulier Relationship Specialty Start Date End Date Neel Busch MD [address] [facility] [address] [place] [address] PCP - General Internal Medicine 05/11/20
== END 2024-04-20 14:25 | disposition home or self-care (01) ==
PROVIDERS: PCP Internal Medicine; Visit Provider Neurological Surgery
DX: M48.061 Spinal stenosis, lumbar region without neurogenic claudication (principal); M51.369 Other intervertebral disc degeneration, lumbar region without mention of lumbar back pain or lower extremity pain; M51.379 Other intervertebral disc degeneration, lumbosacral region without mention of lumbar back pain or lower extremity pain
CPT/HCPCS: 72110

== ENCOUNTER 2024-04-27 14:28 | Outpatient (CLI) | payer MEDICARE, SELFPAY ==
--- NOTE | ~2024-04-27 | MR_ITS ---
MRI of the lumbar spine Clinical History: Spinal stenosis Technique: Axial T2-weighted images, and sagittal T1-weighted, T2-weighted, and T2 fat-sat images wer e acquired. Findings: No acute fracture identified. There is 6 mm retrolisthesis of L1 over L2. There is 6 mm ret rolisthesis of L2 over L3. There is minimal grade 1 retrolisthesis of L3 over L4. There are reactive marrow signal changes about the L2-L3 L3-L4 disc spaces in particular due to underlying degenerative disc disease. No suspicious bone marrow signal reality evident. At L1-L2, there is moderate degenerative disc narrowing. There is minimal disc bulge with moderate fa cet arthropathy. No central canal stenosis. There is moderate to advanced bilateral neural foraminal narrowing. At L2-L3, there is severe degenerative disc narrowing. There is diffuse disc bulge with moderate face t arthropathy. There is moderate to severe spinal canal stenosis/thecal sac compression. There is sev ere bilateral neural foraminal, wrist. At L3-L4, there is severe degenerative disc narrowing. Disc bulge and severe facet arthropathy also c ontribute to severe spinal canal stenosis/thecal sac compression and severe bilateral neural foramina l narrowing, left worse than right. At L4-L5, there is moderate degenerative distended. There is diffuse disc bulge with severe facet art hropathy, resulting in mild central canal stenosis. There is moderate left neural foraminal narrowing . Right neural foramen preserved. At L5-S1, there is moderate degenerative disc narrowing with mild disc bulge and moderate facet arthr opathy, right worse than left. No spinal canal stenosis. There is moderate right neural foraminal latoya rowing and minimal left neural foraminal narrowing. Paravertebral soft tissues are unremarkable. Impression: Severe degenerative spondylosis throughout the lumbar spine, as detailed above, worst at L3-L4. 6 mm retrolisthesis of L1 over L2. 6 mm retrolisthesis of L2 over L3. Minimal grade 1 retrolisthesis of L3 over L4. Reviewed, dictated and finalized at [facility]. Impression: Severe degenerative spondylosis throughout the lumbar spine, as detailed above, worst at L3-L4. 6 mm retrolisthesis of L1 over L2. 6 mm retrolisthesis of L2 over L3. Minimal grade 1 retrolisthesis of L3 over L4.
--- OUTSIDE RECORDS SUMMARY | 2024-04-27 16:19 | XMS_ITS | Referral Summary ---
Author Organization [facility] Address [address] [facility] [place] [address] Care Team Providers Care Nuclear Powerplant Mechanic Name Role Phone Unavailable Primary Care Provider Unavailabl e Source Comments [facility],non-owned Affiliates and Associated Physician Practices is amultiple site organization consisting of ambulatory clinics and hospital sitesin [place], [place], [place] and [place]. This disclosure is being madepursuant to the Care Everywhere program and may not contain all information available regarding this patient. Last updated 17.[facility] [employer] Social History Tobacco Use Types Packs/Day Years Used Date Smoking Tobacco: Never Assessed Sex and Gender Information Value Date Recorded Sex Assigned at Not on file Gender Identity Not on file Sexual Orientation Not on file Plan of Treatment Not on file
--- OUTSIDE RECORDS SUMMARY | 2024-04-27 16:19 | XMS_ITS | Clinical Summary ---
Author Organization [facility] [address] Address [address] [place] [address] Care Team Providers Care Flight Mechanic Name Role Phone Neel Busch MD Primary Care Provider +1- [phone] Allergies No known active allergies Medications diclofenac [...] 10/25/2020 Assessment & Plan (01/21/2021 12:21 PM [employer] ADVISOR): Patient continues on Sinemet 25/100 t.i.d. at [...] so needed I would recommend referral to [facility] as such testing is not offered [...] on file Legal Sex Male 8:13 PM [employer] ADVISOR Gender Identity Male 12/02/2020 1:36 PM CDT Sexual Orientation Choose not to disclose 2020 1:36 PM CDT Obstetrics History Last Filed Vital Signs Vital Sign Reading Time Taken Comments Blood Pressure 160/92 01/21/2021 11:50 AM [employer] ADVISOR Pulse 90 01/21/2021 11:50 AM [employer] ADVISOR Temperature 36.2 C (97.1 F) 01/21/2021 11:50 AM [employer] ADVISOR Respiratory Rate - - Oxygen Saturation 97% 05/28/2020 9:10 AM CDT Inhaled Oxygen Concentration - - Weight 105.2 kg (232 lb) 01/21/2021 11:50 AM [employer] ADVISOR Height 182.9 cm (6') 01/21/2021 11:50 AM [employer] ADVISOR Body Mass Index 31.46 01/21/2021 11:50 AM [employer] ADVISOR Plan of Treatment Not on file Insurance [facility] MDCR HMO REF [facility] MEDICARE Address: [address] [address] [place] [address] [facility] MEDICARE Address: [address] [address] [place] [address] Care Teams Flight Mechanic Relationship Specialty Start Date End Date Neel Busch MD [address] [facility] [address] [place] [address] PCP - General Internal Medicine 05/11/20
--- OUTSIDE RECORDS SUMMARY | 2024-04-27 16:19 | XMS_ITS | Clinical Summary ---
Author Organization [facility] [employer] Address [address] [facility] [place] [address] Care Team Providers Care Air Pollution Inspector Name Role Phone Unavailable Primary Care Provider Unavailabl e Source Comments [facility] [employer],non-owned Affiliates and Associated Physician Practices is amultiple site organization consisting of ambulatory clinics and hospital sitesin [place], [place], [place] and [place]. This disclosure is being madepursuant to the Care Everywhere program and may not contain all information available regarding this patient. Last updated 17.[facility] [employer] Social History Tobacco Use Types Packs/Day Years [...] to complete this topic MENINGOCOCCAL (Group B) VACC INE SHARED DECISION-MAKING Aged Out No longer eligibl e based on patient's age to complete this topic MENINGOCOCCAL GROUPS A/C/Y/W VACCINE Aged Out No longer eligible b ased on patient's age to complete this topic
--- OUTSIDE RECORDS SUMMARY | 2024-04-27 16:19 | XMS_ITS | Encounter Summary ---
Author Organization [facility] Address [address] [place] [address] Care Team Providers Care Header Set Up Operator Name Role Phone Unavailable Primary Care Provider Unavailabl e Encounter Details Date Type Department Care Team (Late st Contact Info) Description 11/30/2023 Lab Requisition [facility] - DermPath Lab [address] [place] [id number] Trev Melo MD [facility] [address] [place] [phone] Neoplasm of uncertain behavior of skin [...] AM CDT) Case Report Dermatopathology Report Case: [id number] Authorizing Provider: Trev Melo MD Collected: 11/30/2023 12:00 AM Ordering Location: [facility] - Received: 12/01/2023 11:24 [...] characteristic determined by the Dermatopathology Laboratory at [facility], directed by Dr. Colby Medina. These tests need not be, and therefore are not, approved by the [place] Food and Drug Administration. The tests are used for clinical purposes. Billing Codes Specimen Charges Stain Charges 76756 1 1:53 PM CDT DERMATOPATHOLOGY LABORATORY Embedded Images 1:53 PM CDT DERMATOPATHOLOGY LABORATORY Pathology/Cytolog y TISSUE SPECIMEN FROM SKIN / Unknown 11/30/2023 12/01/2023 11:24 AM CDT Trev Melo MD LAB - PATHOLOGY/CYTO LOGY ORDERABLES DERMATOPATHOLOGY LABORATORY [facility] - Department of Dermatology [facility] Medicine [address] [place] [address], [address] [phone] documented in this encounter Visit Diagnoses Diagnosis Neoplasm of uncertain behavior of skin documented in this encounter
--- OUTSIDE RECORDS SUMMARY | 2024-04-27 16:19 | XMS_ITS | Referral Summary ---
Author Organization [facility] [address] Address [address] [place] [address] Care Team Providers Care Purchasing Director Name Role Phone Neel Busch MD Primary Care Provider +1- [phone] Allergies No known active allergies Medications diclofenac [...] 10/25/2020 Assessment & Plan (01/21/2021 12:21 PM WHEEL GRINDER): Patient continues on Sinemet 25/100 t.i.d. at [...] so needed I would recommend referral to [facility] as such testing is not offered through this practice. Social History Tobacco Use Types Packs/Day Years Used Date Smoking Tobacco: Former Smokeless Tobacco: Former Personal Safety Answer Date Recorded Getting School Help Needed Not on file 02/14 Sex and Gender Information Value Date Recorded Sex Assigned at Not on file Legal Sex Male 8:13 PM WHEEL GRINDER Gender Identity Male 12/02/2020 1:36 PM CDT Sexual Orientation Choose not to disclose 2020 1:36 PM CDT Last Filed Vital Signs Vital Sign Reading Time Taken Comments Blood Pressure 160/92 01/21/2021 11:50 AM WHEEL GRINDER Pulse 90 01/21/2021 11:50 AM WHEEL GRINDER Temperature 36.2 C (97.1 F) 01/21/2021 11:50 AM WHEEL GRINDER Respiratory Rate - - Oxygen Saturation 97% 05/28/2020 9:10 AM CDT Inhaled Oxygen Concentration - - Weight 105.2 kg (232 lb) 01/21/2021 11:50 AM WHEEL GRINDER Height 182.9 cm (6') 01/21/2021 11:50 AM WHEEL GRINDER Body Mass Index 31.46 01/21/2021 11:50 AM WHEEL GRINDER Plan of Treatment Not on file Insurance [facility] MDCR HMO REF Member Subscriber Plan / Payer (Ef fective 2020-Present) Name:Zechariah Velez Relation to Subscriber:Self Name:Zechariah Velez Payer ID:[id number] (NAIC) Type:[facility] MEDICARE Address: [place] [id number] MEDICARE SOLUTIONS Care Teams Purchasing Director Relationship Specialty Start Date End Date Neel Busch MD [address] [facility] [address] [place] [address] PCP - General Internal Medicine 05/11/20
--- OUTSIDE RECORDS SUMMARY | 2024-04-27 16:19 | XMS_ITS | Patient Health Summary ---
Author Organization [facility] Address [address] [place] [address] Care Team Providers Care Payloader Machine Operator Name Role Phone Unavailable Primary Care Provider Unavailabl e Note from [facility],non-owned Affiliates and Associated Physician Practices is amultiple site organization consisting of ambulatory clinics and hospital sitesin [place], [place], [place] and [place]. This disclosure is being madepursuant to the Care Everywhere program and may not contain all information available regarding this patient. Last updated 17.[facility] Social History Tobacco Use Types Packs/Day Years Used Date Smoking Tobacco: Never Assessed Sex and Gender Information Value Date Recorded Sex Assigned at Not on file Gender Identity Not on file Sexual Orientation Not on file Procedures * DERMATOPATHOLOGY(Performed 11/30/2023) Performed for Neoplasm of uncertain behavior of skin Results * DERMATOPATHOLOGY (11/30/2023 12:00 AM CDT) Case Report Dermatopathology Report Case: [id number] Authorizing Provider: Trev Melo MD Collected: 11/30/2023 12:00 AM Ordering Location: [facility] - Received: 12/01/2023 11:24 [...] characteristic determined by the Dermatopathology Laboratory at [facility], directed by Dr. Colby Medina. These tests need not be, and therefore are not, approved by the [place] Food and Drug Administration. The tests are used for clinical purposes. Billing Codes Specimen Charges Stain Charges 28959 1 1:53 PM CDT DERMATOPATHOLOGY LABORATORY Embedded Images 1:53 PM CDT DERMATOPATHOLOGY LABORATORY Pathology/Cytolog y TISSUE SPECIMEN FROM SKIN / Unknown 11/30/2023 12/01/2023 11:24 AM CDT Trev Melo MD LAB - PATHOLOGY/CYTO LOGY ORDERABLES DERMATOPATHOLOGY LABORATORY [facility] - Department of Dermatology [address], [address] [phone]
== END 2024-04-27 14:29 | disposition home or self-care (01) ==
PROVIDERS: PCP Internal Medicine; Visit Provider Neurological Surgery
DX: M48.061 Spinal stenosis, lumbar region without neurogenic claudication (principal)
CPT/HCPCS: 72148

== ENCOUNTER 2024-05-22 14:45 | Outpatient (RCR) | payer MEDICARE, SELFPAY ==
--- NOTE | 2024-04-28 15:21 | OPREHPOC ---
Outpatient Therapy Plan of Care This is a Multidisciplinary Plan of Care that may contain components documented by all disciplines (PT, OT, and ST.) PT Problem 1 PT Problem #1 Knowledge Deficit PT Goal 1 Goal / Goal Update *indep with HEP Target Visit 8 PT Goal 2 Goal / Goal Update * pt demonstrate good body mechanics with lifting from the floor and simulated tasks of unloading library assistant and yard work tasks Target Visit 8 PT Problem 2 PT Problem #2 Pain PT Goal 1 Goal / Goal Update * pt report pain at worst rating of 6/10 Target Visit 8 PT Problem 3 PT Problem #3 Impaired Flexibility PT Goal 1 Goal / Goal Update increase flexibility of hips, to decrease pull and strain to lumbar spine hamstring length with supine SLR to 50' 1* R 2* L piriformis length with supine hip and knee flexion, leg cross stretch, knee pass midline of body 3* R 4* L Target Visit 8 PT Problem 4 PT Problem #4 Impaired Strength PT Goal 1 Goal / Goal Update increase hip and trunk strength to improve stability to spine single leg standing 20 seconds 1* R 2* L sidelying hip abduction x 20 reps with good stability 3* R 4* L Target Visit 8
--- NOTE | 2024-04-28 15:22 | PTOPEVAL1 ---
Assessment and note entered by Sujata Eric, PT Evaluation Information Assessment Status Evaluation ICD-10 Condition Codes (PT) Pain in low back M54.50,Radiculopathy, lumbar region M54.16 Other ICD-10 Condition Codes ( lumbar spinal stenosis M48.061 PT) Subjective Information gradual increase in pain; injections and ablation wore off; feel like L leg is more effected by the Parkinson' s and weaker had PT in the past for his back, not really help, sometime little worse after all the exercises activity: retired, home with ; does home and yard work, but more pain; do not do any exercises for his back- is active, play pickle ball for total of 2 hours and bowls; indep with home and self care activities Reported Pain Level Pain Score Self Report Additional Pain Score Comments pain range in the past week 1-09/24; lumbar L > R and L anterior hip- at crease increase pain: when wake up in AM, yard work, more activity decrease pain: meds, rest, not using heat, ice on back; instruct on PRN use sleep is not disrupted due to back pain Assessment PT Clinical Summary Brayden has the diagnosis of lumbar stenosis. Oswestry self assessment functional score of 28% limitation in a activity level. He is able to do all of his home and self care activities with increased pain. Previous PT did not really help him. His history includes chronic back pain, has had injections and ablation. Recent MRI with moderate to severe changes reported, with retrolisthesis. Also Parkinson's, prostate and stomach cancer. With the evaluation: the only testing position that increased his pain was standing trunk extension; L LE is weaker than R LE; tightness over R and L hamstring, piriformis muscles; poor standing posture with rounded thoracic spine and lumbar curvature. Skilled PT services are indicated for modalities to decrease pain, therapeutic exercises to increase trunk and LE strength and flexibility with education for HEP and body mechanics, posture Plan of Care Interventions Hot Pack/Cold Pack,Manual Therapy,Mechanical Traction,Patient/Caregiver Education,Therapeutic Activities,Therapeutic Exercise,Other Other Interventions taping PT Services Indicated Yes Treatment Frequency and 2x/wk for 8 visits Duration These treatments will address the objective and functional deficits as defined above. The patient will be advanced safely and appropriately in order for the patient to progress towards his/her prior level of function. Additional exercises will be introduced and as well as a comprehensive home exercise program upon discharge, if needed, ?to ensure carryover of functional gains achieved in the clinic. This treatment plan has been reviewed and agreement upon by the patient.
--- NOTE | 2024-05-22 15:30 | OPREHPOC ---
Outpatient Therapy Plan of Care This is a Multidisciplinary Plan of Care that may contain components documented by all disciplines (PT, OT, and ST.) PT Problem 1 PT Problem #1 Knowledge Deficit PT Goal 1 Goal / Goal Update *indep with HEP Target Visit 8 Progress Met PT Goal 2 Goal / Goal Update * pt demonstrate good body mechanics with lifting from the floor and simulated tasks of unloading emergency manager and yard work tasks Target Visit 8 Progress Partially Met PT Problem 2 PT Problem #2 Pain PT Goal 1 Goal / Goal Update * pt report pain at worst rating of 6/10 Target Visit 8 Progress Not Met PT Problem 3 PT Problem #3 Impaired Flexibility PT Goal 1 Goal / Goal Update increase flexibility of hips, to decrease pull and strain to lumbar spine hamstring length with supine SLR to 50' 1* R 2* L piriformis length with supine hip and knee flexion, leg cross stretch, knee pass midline of body 3* R 4* L Target Visit 8 Progress Partially Met PT Problem 4 PT Problem #4 Impaired Strength PT Goal 1 Goal / Goal Update increase hip and trunk strength to improve stability to spine single leg standing 20 seconds 1* R 2* L sidelying hip abduction x 20 reps with good stability 3* R 4* L Target Visit 8 Progress Partially Met
--- NOTE | 2024-05-22 15:31 | PTOPDC ---
Assessment and note entered by Wicho Griffith, PT Evaluation Information Assessment Status Discharge ICD-10 Condition Codes (PT) Pain in low back M54.50,Radiculopathy, lumbar region M54.16 Other ICD-10 Condition Codes ( lumbar spinal stenosis M48.061 PT) Subjective Information Patient reports that he has not had any subjective change throughout this plan of care with therapy. This is his second round of therapy to attempt pain resolution and pain is still constant with occasional instances of severe amplitude. Feels that he has not has resolution of pain symptoms with series of injections or ablation. Patient feels that surgery may be his only option at this point and is looking forward to discussion with MD on 06/07/24. Reports that majority of pain is low and constant but certain movements give him intense jolts of pain limiting function. Reported Pain Level Pain Score 1: Self Report Assessment PT Clinical Summary Patient has shown some objective improvement in his time in therapy. He does not report significant subjective improvement. This being his second round of therapy for this issue without significant resolution he is looking to advance to the potential of surgery given he has attempted pain management, ablation, and physical therapy at this time. Plan of Care PT Services Indicated Yes
== END 2024-05-22 16:59 | disposition home or self-care (01) ==
LOC: ANHPT 14:45
PROVIDERS: PCP Internal Medicine; Visit Provider Neurological Surgery
DX: M48.061 Spinal stenosis, lumbar region without neurogenic claudication (principal); G20.A1 Parkinson's disease without dyskinesia, without mention of fluctuations
CPT/HCPCS: 97110; 97140; 97161; 97530

== ENCOUNTER 2024-06-15 11:49 | Outpatient (CLI) | payer MEDICARE, SELFPAY ==
--- NOTE | ~2024-06-15 | XR_ITS ---
Clinical Indication: Spinal stenosis PA and lateral views of the chest: Comparison: 10/13/2021 Findings: The lungs are clear, without evidence of focal consolidation or pleural effusion. Cardiome diastinal silhouette is within normal limits. Bones and soft tissues are unremarkable. Impression: Normal chest. Reviewed, dictated and finalized at location . Impression: Normal chest.
--- NOTE | 2024-06-15 12:29 | ECG_ITS ---
Test Date: 2024-06-15 12:45:24 Measurements Intervals [place] Rate: 57 P: 50 AR: 176 QRS: 17 QRSD: 110 T: 34 QT: 414 QTc: 403 Interpretive Statements SINUS BRADYCARDIA MODERATE VOLTAGE CRITERIA FOR LVH, CONSIDER NORMAL VARIANT [MEETS CRITERIA IN ONE OF: R(aVL), S(V1), R(V5), R(V5/V6)+S(V1)] WARNING: DATA QUALITY MAY AFFECT INTERPRETATION No previous ECG available for comparison Electronically Signed On 06-16-2024 18:58:33 CDT by Oneil Caraballo
[2024-06-15 13:04] LABS: Basophils Percent Auto 0.2 % (0.2-1.2); Eosinophils Absolute Auto 0.1 K/mm3 (0-0.3); Eosinophils Percent Auto 1.5 % (0-4.4); Hematocrit 42.3 % (42.0-52.0); Hemoglobin 13.5 g/dL (14.0-18.0); Immature Granulocyte Absolute 0.02 K/mm3 (0.00-0.031); Immature Granulocyte Percent A 0.4 % (0-0.5); Mean Corpuscular HGB Conc 31.9 g/dl (32-36); Mean Platelet Volume 10.1 fl (7.4-10.4); Monocytes Absolute Auto 0.3 K/mm3 (0.1-0.6); Monocytes Percent Auto 6.9 % (2.6-8.5); Neutrophils Absolute Auto 3.3 K/mm3 (1.3-6.7); Platelet Count Result 217 k/mm3 (150-375); Red Blood Count 4.36 M/mm3 (4.6-6.20); Red Cell Distribution Width 12.9 % (11.5-14.5); White Blood Count 4.8 K/mm3 (4.5-10.0)
[2024-06-15 13:06] LABS: Add Urine Microscopic? NO; Appearance Urine Clear (Clear); Bilirubin Urine Negative (Negative); Blood Urine Negative (Negative); Color Urine Yellow (Yellow); Glucose Urine UA Negative (Negative); Ketones Urine Trace mg/dL (Negative); Leukocyte Esterase Ur Negative LEU/UL (Negative); Nitrate Urine Negative (Negative); Protein Urine Negative (Negative); Specific Grav Ur 1.023 (1.001-1.035); pH Urine 5.5 (5.0-9.0)
[2024-06-15 13:22] LABS: Prothrombin Time 13.4 Seconds (11.1-14.7)
[2024-06-15 13:23] LABS: Partial Thromboplastin Time 27.2 Seconds (22.3-36.8)
== END 2024-06-15 11:50 | disposition home or self-care (01) ==
LOC: ANHSURGERY 11:52
PROVIDERS: PCP Internal Medicine; Visit Provider Neurological Surgery
DX: Z01.818 Encounter for other preprocedural examination (principal); M48.061 Spinal stenosis, lumbar region without neurogenic claudication
CPT/HCPCS: 36415; 71046; 81003; 85025; 85610; 85730; 93005

== ENCOUNTER 2024-06-28 00:20 | Day surgery (SDC) | payer MEDICARE, SELFPAY ==
[2024-06-15 12:02] VITALS: PULSE 65; RESP 16; TEMP 36.8; O2SAT 96; BMI 27.9
--- NOTE | 2024-06-15 12:19 | PC.NURSE ---
Report to the Outpatient Waiting Room, entrance under the green pavilion located off [facility], at time __10:00am on date __06/28/24 . Planned Procedure Time: _12:00pm . Time changes happen often and if your time is changed the preop area will call you the afternoon before. - You and your visitor will be asked to self-screen and do not enter if you have any COVID symptoms. Please call surgeon if you need to reschedule. - A mask is optional within the hospital at this time. Patients may have clear liquids (water, carbonated beverages, clear teas, apple juice) until 3 hours prior to surgery with a maximum of 20 ounces. - No food from midnight until time of surgery and no smoking, or chewing tobacco (or any form of nicotine). No chewing gum, candy or mints. (0900am) Take only the following medications with a SIP of water on the morning of surgery: ___Amlodipine, Sinemet, and Gabapentin DO NOT STOP ANY OF YOUR OTHER PRESCRIPTION MEDICATIONS PRIOR TO SURGERY EXCEPT THE FOLLOWING Hold all vitamins and supplements for 3 days per anesthesiologist. Date of last dose 06/24/24 Medications to discontinue per physician ____Diclofenac instructions per Dr. Zarate Date to take last dose____Per Dr. Zarate Please no make-up, nail monegasque, hairspray, perfume, deodorant, or body powder the day of surgery. No jewelry (including any body piercings) or valuables the day of surgery, leave them at home. Please take a shower or bath the night before, or the morning of, surgery with an antibacterial soap. Wear comfortable, loose fitting clothing. - Jewelry must be removed prior to entering the operating room. Rings and piercings that are not removed may be cut off. - The hospital will not accept responsibility for valuables. - Please leave all valuables, including medications, at home the day of surgery. If you are going home after surgery, a licensed transit mixer driver must drive you home. - NO public transportation without another adult if you receive anesthesia. - We recommend that an adult stay with you for 24 hours following discharge. - We also recommend that you do not drive, make important decision, drink alcoholic beverages, or take any drugs that were not prescribed by your health care provider for at least 24 hours after your discharge time. Follow any additional instructions given to you from your surgeon. Telephone instructions given to and asked if any additional questions and then verbalized understanding. Patient advised to call surgeon office or pre surgery nurse liaison [phone] if any additional questions.
[2024-06-28] VITALS (8 sets, daily range): BP systolic 107–172; BP diastolic 72–97; PULSE 71–82; RESP 12–14; TEMP 36.5–36.9; O2SAT 93–100
--- NOTE | ~2024-06-28 | XR_ITS ---
EXAMINATION: XR fluoroscopy no charge DATE: 06/28/2024 14:03 INDICATION: Lumbar laminectomy TECHNIQUE: 2 fluoroscopic images of the lower lumbar spine were obtained during procedure performed b robb Zarate. Radiologist was not present for the imaging or procedure. The amount of fluoroscopy ti me used during this procedure was 0.1 minutes. Total DAP was 0.559 Gycm^2. COMPARISON: None. FINDINGS: Moderate lower lumbar spondylosis with grade 1 anterolisthesis L4 on L5. Images demonstrate metallic probe, soft tissue retractors and lap sponge markers projecting over the spinous processes of L3 and L4. IMPRESSION: 1. Fluoroscopy utilized during neurosurgical procedure at the lower lumbar spine. See procedure note for further detail. Reviewed, dictated and finalized at location A. IMPRESSION: 1. Fluoroscopy utilized during neurosurgical procedure at the lower lumbar spin e. See procedure note for further detail.
--- OUTSIDE RECORDS SUMMARY | 2024-06-28 00:23 | XMS_ITS | Clinical Summary ---
Author Organization [facility] [address] Address [address] [place] [address] Care Team Providers Care Demurrage Agent Name Role Phone Neel Busch MD Primary Care Provider [phone]- [phone] Allergies No known active allergies Medications diclofenac [...] 10/25/2020 Assessment & Plan (01/21/2021 12:21 PM DUST COLLECTOR TREATER): Patient continues on Sinemet 25/100 t.i.d. at [...] so needed I would recommend referral to [facility] as such testing is [...] on file Legal Sex Male 8:13 PM DUST COLLECTOR TREATER Gender Identity Male 12/02/2020 1:36 PM CDT Sexual Orientation Choose not to disclose 2020 1:36 PM CDT Obstetrics History Last Filed Vital Signs Vital Sign Reading Time Taken Comments Blood Pressure 160/92 01/21/2021 11:50 AM DUST COLLECTOR TREATER Pulse 90 01/21/2021 11:50 AM DUST COLLECTOR TREATER Temperature 36.2 C (97.1 F) 01/21/2021 11:50 AM DUST COLLECTOR TREATER Respiratory Rate - - Oxygen Saturation 97% 05/28/2020 9:10 AM CDT Inhaled Oxygen Concentration - - Weight 105.2 kg (232 lb) 01/21/2021 11:50 AM DUST COLLECTOR TREATER Height 182.9 cm (6') 01/21/2021 11:50 AM DUST COLLECTOR TREATER Body Mass Index 31.46 01/21/2021 11:50 AM DUST COLLECTOR TREATER Plan of Treatment Not on file Insurance [facility] MDCR HMO REF [facility] MEDICARE ADVANTAGE Care Teams Demurrage Agent Relationship Specialty Start Date End Date Neel Busch MD [address] [address] PCP - General Internal Medicine 05/11/20
--- OUTSIDE RECORDS SUMMARY | 2024-06-28 00:23 | XMS_ITS | Encounter Summary ---
Author Organization [facility] Address [address] [place] [address] Care Team Providers Care Debug Technician Name Role Phone Unavailable Primary Care Provider Unavailabl e Encounter Details Date Type Department Care Team (Late st Contact Info) Description 11/30/2023 Lab Requisition [facility] - DermPath Lab [address] [place] [id number] Trev Melo MD [facility] DERMATOLOGY [address] [place] [phone] Neoplasm of uncertain behavior of skin Social History Tobacco Use Types Packs/Day Years Used Date Smoking Tobacco: Never Assessed Sex and Gender Information Value Date Recorded Sex Assigned at Not on file Legal Sex Male 10:44 AM CLUB STEWARD Gender Identity Not on file Sexual Orientation Not on file documented as of this encounter Plan of Treatment Not on file documented as of this encounter Procedures Procedure Name Priority Date/Time Associated Diagnosis Comments DERMATOPATHOLOGY Routine 11/30/2023 12:0 0 AM CDT Neoplasm of uncertain behavior of skin documented in this encounter Results * DERMATOPATHOLOGY (11/30/2023 12:00 AM CDT) Case Report Dermatopathology Report Case: [id number] Authorizing Provider: Trev Melo MD Collected: 11/30/2023 12:00 AM Ordering Location: [facility] - Received: 12/01/2023 11:24 AM DermPath Lab [...] characteristic determined by the Dermatopathology Laboratory at [facility], directed by Dr. Colby Medina. These tests need not be, and therefore are not, approved by the [place] Food and Drug Administration. The tests are used for clinical purposes. Billing Codes Specimen Charges Stain Charges 42025 1 1:53 PM CDT DERMATOPATHOLOGY LABORATORY Embedded Images 1:53 PM CDT DERMATOPATHOLOGY LABORATORY Pathology/Cytolog y TISSUE SPECIMEN FROM SKIN / Unknown 11/30/2023 12/01/2023 11:24 AM CDT us Trev Melo MD LAB - PATHOLOGY/CYTOLOGY [facility] Final Result DERMATOPATHOLOGY LABORATORY [facility] - Department of Dermatology [address], [address] [phone] documented in this encounter Visit Diagnoses Diagnosis Neoplasm of uncertain behavior of skin documented in this encounter
--- OUTSIDE RECORDS SUMMARY | 2024-06-28 00:23 | XMS_ITS | Clinical Summary ---
Author Organization [facility] Address [address] [place] [address] Care Team Providers Care Local Hazmat Driver Name Role Phone Unavailable Primary Care Provider Unavailabl e Source Comments [facility],non-owned Affiliates and Associated Physician Practices is amultiple site organization consisting of ambulatory clinics and hospital sitesin [place], [place], [place] and [place]. This disclosure is being madepursuant to the Care Everywhere program and may not contain all information available regarding this patient. Last updated 17.[facility] Social History Tobacco Use Types Packs/Day Years Used Date Smoking Tobacco: Never Assessed Sex and Gender Information Value Date Recorded Sex Assigned at Not on file Legal Sex Male 10:44 AM FUMIGATOR AND STERILIZER Gender Identity Not on file Sexual Orientation Not on file Plan of Treatment Health Maintenance Due Date Last Done Comments HEPATITIS C SCREENING 04/26/1966 DTAP/TDAP/TD VACCINES (1 - Tdap) 05/01/1967 PNEUMOCOCCAL VACCINE 50+ (1 of 1 - PCV) 1998 ZOSTER VACCINE (1 of 2) 1998 Respiratory Syncytial Virus (RSV) Vaccine Pt: or over 60 yrs (1 - 1-dose 75+ series) 05/01/2023 COVID-19 VACCINE ( - 2023-2 5 season) 2023 DEPRESSION SCREENING 02/16/2024 MEDICARE AWV CALENDAR YEAR 2024 INFLUENZA VACCINE (Season Ended) 2024 HEPATITIS B VACCINE Aged Out No [...] on patient's age to complete this topic Insurance [id number] [facility] UHC MANAGED MEDICARE ADV [facility] MANAGED MEDICARE ADV
--- OUTSIDE RECORDS SUMMARY | 2024-06-28 00:23 | XMS_ITS | Referral Summary ---
Author Organization [facility] [address] Address [address] [place] [address] Care Team Providers Care Juvenile Detention Officer Name Role Phone Neel Busch MD Primary Care Provider +1- [phone] Allergies No known active allergies Medications diclofenac [...] 10/25/2020 Assessment & Plan (01/21/2021 12:21 PM SPEECH AND LANGUAGE CLINICIAN): Patient continues on Sinemet 25/100 t.i.d. at [...] so needed I would recommend referral to [facility] as such testing is not offered through this practice. Social History Tobacco Use Types Packs/Day Years Used Date Smoking Tobacco: Former Smokeless Tobacco: Former Personal Safety Answer Date Recorded Getting School Help Needed Not on file 02/14 Sex and Gender Information Value Date Recorded Sex Assigned at Not on file Legal Sex Male 8:13 PM SPEECH AND LANGUAGE CLINICIAN Gender Identity Male 12/02/2020 1:36 PM CDT Sexual Orientation Choose not to disclose 2020 1:36 PM CDT Last Filed Vital Signs Vital Sign Reading Time Taken Comments Blood Pressure 160/92 01/21/2021 11:50 AM SPEECH AND LANGUAGE CLINICIAN Pulse 90 01/21/2021 11:50 AM SPEECH AND LANGUAGE CLINICIAN Temperature 36.2 C (97.1 F) 01/21/2021 11:50 AM SPEECH AND LANGUAGE CLINICIAN Respiratory Rate - - Oxygen Saturation 97% 05/28/2020 9:10 AM CDT Inhaled Oxygen Concentration - - Weight 105.2 kg (232 lb) 01/21/2021 11:50 AM SPEECH AND LANGUAGE CLINICIAN Height 182.9 cm (6') 01/21/2021 11:50 AM SPEECH AND LANGUAGE CLINICIAN Body Mass Index 31.46 01/21/2021 11:50 AM SPEECH AND LANGUAGE CLINICIAN Plan of Treatment Not on file Insurance [facility] MDCR HMO REF Member Subscriber Plan / Payer (Ef fective 2020-Present) Name:Zechariah Velez Relation to Subscriber:Self Name:Zechariah Velez Payer ID:[id number] (NAIC) Type:[facility] MEDICARE Address: [place] [phone] [facility] MEDICARE ADVANTAGE Member Subscriber Plan / Payer (Ef fective 2022-Present) Name:Zechariah Velez Relation to Subscriber:Self Name:Zechariah Velez Payer ID:[id number] (NAIC) Type:[facility] MEDICARE Address: [place] [phone] Care Teams Juvenile Detention Officer Relationship Specialty Start Date End Date Neel Busch MD [address] [place] [address] PCP - General Internal Medicine 05/11/20
[2024-06-28] MEDS: LACTATED RINGERS 1,000 ML 30 ML IV CONT ×2 (11:00→14:00)
--- NOTE | 2024-06-28 11:00 | WPDANESEPPF ---
Anes - Initial Pre Proc Eval Procedure: Operation Date: 06/28/24 12:00 Proposed Procedures p L3-L4 Lumbar Laminectomy - Jacquelin Zarate MD Date/Time: 06/28/24 11:00 Surgeon: Jacquelin Zarate MD Pre Op Diagnosis: lumbar stenosis w/neuro claudication Patient Data Age: 74 Gender: M Height: 1.83 m Weight: 93.5 kg Last Vital Signs Temp 36.8 C 06/15/24 12:02 Pulse 65 06/15/24 12:02 Resp 16 06/15/24 12:02 Pulse Ox 96 06/15/24 12:02 O2 Del Method Room Air 06/15/24 12:02 Allergies Allergy/AdvReac Type Severity Reaction Status Date / Time No Known Allergies Allergy Verified 06/15/24 11:56 Home Medications Medication Instructions Recorded Confirmed Type gabapentin 300 mg capsule 300 mg PO TID #90 caps 07/07/23 06/15/24 Rx amlodipine 5 mg tablet 5 mg PO DAILY #90 tabs 12/19/23 06/15/24 Rx carbidopa 25 mg-levodopa 100 mg 2 tablet PO TID #180 tabs 12/20/23 06/15/24 Rx tablet (Sinemet) diclofenac sodium 75 mg 75 mg PO BID #180 tabs 01/18/24 06/15/24 Rx tablet,delayed release ciclopirox 8 % topical solution 1 applic topical QHS 4 weeks #6.6 06/01/24 06/15/24 Rx mL Patient hx anesthesia problems: none Family hx anesthesia problems: none Results Review: All pre-operative results and documents have been reviewed as part of the pre-operative evaluation. [facility] Past Medical History Medical History BMI 28.0-28.9,adult Hyperglycemia GIST (gastrointestinal stromal tumor), malignant Anemia, unspecified Allergic rhinitis, unspecified Adult general medical exam REM behavioral disorder Right hand weakness Parkinson disease History of stomach cancer History of blood transfusion Essential (primary) hypertension Pure hypercholesterolemia Surgical History Surgical History Hx of prostatectomy 12/2021 Hx of cataract surgery H/O inguinal hernia repair x2 History of surgery for malignant neoplasm of the stomach Family History Family History Mother Hypertension Father Family history of malignant neoplasm of thyroid Sibling Cancer Social History Social History Smoking packs per day: 0.3 Smoking cigarettes per day: 6.0 Years smoked: 5 Smoking pack-years: 1.50 Smoking status: Former smoker Second hand tobacco smoke exposure: No Smoking end date: 02/16/04 Additional smoking assessment comments: STATES SMOKED WHEN BOWLING 1PK/EVERY COUPLE OF MONTHS/5 YRS Alcohol intake: current Drinks per week: 7 Substance use: current Substance use type: marijuana Other substance usage details: smoke once a week, gummies recreationally few times a week Do You Feel Safe in your Home?: Yes Lack of Transportation: No Lack of Food: Never True Current Housing: I Have Housing Concerned About Future Housing: No Difficulty Paying Gas/Electric Bills: No Difficulty Paying for Meds: No Currently Unemployed: No Education: Bachelor's Degree Difficulty w/ Childcare or Family Care: No Living arrangements: with family Additional living arrangements comments: Pt's 97 y/o mother moved in and is stressing him out. 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 Gender identity (if verbalized by the patient): Male Spiritual care concerns: No Anes - Eval Final PreProcedure Day of Procedure 06/28/24 11:00 Patient weight: overweight Heart: regular rate and rhythm Lungs: clear to auscultation Airway: Mallampati scale class III Neurological: alert and oriented Last oral intake: >/= 8 hours ASA classification: III Emergent: no Anesthetic plan: proceed Anesthesia type and monitoring: general ETT and standard monitoring Results Review: All pre-operative results and documents have been reviewed as part of the pre-operative evaluation. Informed Consent: The patient's anesthetic plan and its attendant risks and benefits were discussed with the patient/family/POA. Questions were solicited and answers provided to the satisfaction of the patient/family/POA.
--- NOTE | 2024-06-28 11:16 | WPDHPUPDATE1 ---
History and Physical Update Update Date/Time: 06/28/24 11:16 History and Physical has been reviewed, including an updated exam of the patient. There are NO changes in the patient's condition. Risks, benefits, and alternatives have been discussed and questions answered. Patient agrees to proceed with procedure.
[2024-06-28] MEDS: ceFAZolin 2 GM/D5W 50 ML 2 GM/50 ML BAG IVPB (11:48)
[2024-06-28] MEDS: BUPIVACAINE/EPINEPHRINE 0.5% 30 ML VIAL INFILTRATE (12:23)
--- NOTE | 2024-06-28 13:52 | P.OPB_ITS ---
Procedure Note - Brief Procedure Note - Brief Date of procedure: 06/28/24 lumbar stenosis w/neuro claudication Post-op diagnosis: Same Procedure performed: L3-4 laminectomy Surgeon: Jacquelin Zarate MD Electric Arc Furnace Operator: Nazia Anesthesia: GETA Findings: Successful laminectomy without complication Estimated blood loss (mL): 25 Drains: No Packing: No Pathology: None sent Complications: None Condition: Stable Disposition: PACU
--- NOTE | 2024-06-28 13:58 | P.OP_ITS ---
Procedure Note - Detailed Date of Procedure 06/28/24 Pre-op Diagnosis lumbar stenosis w/neuro claudication Post-op Diagnosis Same Procedure Performed 1. L3-4 laminectomy 2. Use of microscope for microsurgical dissection 3. Use of C-arm for fluoroscopy Surgeon Jacquelin Zarate MD Asset Protection Greeter Nazia Anesthesia General Description of Procedure The patient was brought to the operating room, and general anesthesia was induced. The patient was placed prone on the Tio frame, and all pressure points were padded. Compression devices were placed on the patient's calves. The skin was cleaned with alcohol. The C-arm was brought onto the field to localize the appropriate disc space and assist with incisional planning. The area was prepped and draped in usual sterile fashion. A time out was conducted, and pre- operative antibiotics were administered. Local anesthesia was injected into the planned incision. A midline skin incision was made with a 10-blade scalpel, and dissection was carried down with the monopolar cautery to open the fascia. Once the spinous processes were located, a subperiosteal dissection was performed to expose the laminae bilaterally. A self-retaining retractor was placed. The C-arm was brought in to confirm the correct level. The spinous process was removed with a Leksell. The laminae were thinned with the drill along with the medial facets. A currette was used to develop the plane between the bone and the ligament. The ligamentum was removed with kerrisons. There was an excessive amount of ligament in the canal that was removed carefully. The plane between the ligamentum and the dura was periodically verified with the currette to ensure the structures were not adherent. The dura was eventually exposed and appeared well decompressed. A Woodsen was used to verify adequate decompression at the cranial and caudal aspects of the decompression. Hemostasis was ensured, and the area was copiously irrigated. No evidence of CSF leak was noted. The muscle was loosely approximated with 0-Vicryl. The fascia was closed with 0-Vicryl in an interrupted fashion. The soft tissue was again copiously irrigated. The dermis was closed with 2-0 interrupted Vicryl. The skin was closed with 4-0 subcuticular monocryl. Dermabond was applied. The patient was returned supine on the stretcher, extubated, and transferred to PACU without incident. Billing code: [id number], [id number] Estimated Blood Loss 25 Drains No Packing No Pathology None sent Complications None Condition Stable Disposition PACU [facility] Billing Surgery - Charge Forward: Surgery Billing
[2024-06-28] MEDS: oxyCODONE HCL (*CRX) 5 MG TAB IR PO (15:20)
== END 2024-06-28 15:42 | disposition home or self-care (01) ==
PROVIDERS: PCP Internal Medicine; Visit Provider Neurological Surgery
PROC: (CPT 63005; principal; 2024-06-28 12:00)
DX: M48.061 Spinal stenosis, lumbar region without neurogenic claudication (principal); G20.A1 Parkinson's disease without dyskinesia, without mention of fluctuations; I10 Essential (primary) hypertension; D64.9 Anemia, unspecified; R73.9 Hyperglycemia, unspecified; E78.00 Pure hypercholesterolemia, unspecified; F12.90 Cannabis use, unspecified, uncomplicated; Z98.890 Other specified postprocedural states; Z87.891 Personal history of nicotine dependence; Z85.46 Personal history of malignant neoplasm of prostate; Z85.028 Personal history of other malignant neoplasm of stomach; Z80.8 Family history of malignant neoplasm of other organs or systems
CPT/HCPCS: 63047; 99199; A9270; J0690; J1100; J1171; J2003; J2371; J2405; J2704; J3010; J7120

== ENCOUNTER 2024-08-02 09:04 | Outpatient (CLI) | payer MEDICARE, SELFPAY ==
--- NOTE | ~2024-08-02 | XR_ITS ---
XR hip LT min 2V Ordering provider: Jacquelin Zarate MD History: . M25.552 - Pain in left hip, ANTERIOR AND POSTERIOR . Comparison: August 31, 2022 FINDINGS: BONES: No acute fracture or dislocation. HIP JOINT SPACES: Moderately enlarged. PUBIC SYMPHYSIS: Normal. SOFT TISSUES: Normal. IMPRESSION: No acute osseous abnormality pelvis and left hip. Moderate left hip osteoarthritic changes. Reviewed, dictated and finalized at location A.
--- OUTSIDE RECORDS SUMMARY | 2024-08-02 09:44 | XMS_ITS | Encounter Summary ---
Author Organization [facility] Address [address] [place] [address] Care Team Providers Care Enterprise Mobility Architect Name Role Phone Unavailable Primary Care Provider Unavailabl e Encounter Details Date Type Department Care Team (Late st Contact Info) Description 11/30/2023 Lab Requisition [facility] - DermPath Lab [address] [place] [id number] Trev Meol MD [facility] DERMATOLOGY [address] [place] [phone] Neoplasm of uncertain behavior of skin Social History Tobacco Use Types Packs/Day Years Used Date Smoking Tobacco: Never Assessed Sex and Gender Information Value Date Recorded Sex Assigned at Not on file Legal Sex Male 10:44 AM LICENSED PESTICIDE APPLICATOR Gender Identity Not on file Sexual Orientation Not on file documented as of this encounter Plan of Treatment Not on file documented as of this encounter Procedures Procedure Name Priority Date/Time Associated Diagnosis Comments DERMATOPATHOLOGY Routine 11/30/2023 12:0 0 AM CDT Neoplasm of uncertain behavior of skin documented in this encounter Results * DERMATOPATHOLOGY (11/30/2023 12:00 AM CDT) Case Report Dermatopathology Report Case: [id number] Authorizing Provider: Trev Melo MD Collected: 11/30/2023 12:00 AM Ordering Location: [facility] - Received: 12/01/2023 11:24 AM DermPath Lab Pathologist: Nazia Peters MD Specimen: Skin, left chest 1:53 PM CDT DERMATOPATHOLOGY LABORATORY Final Diagnosis Specimen A. SKIN, left chest: HYPERPLASTIC (HYPERTROPHIC) ACTINIC KERATOSIS (L57.0) 1:53 PM CDT DERMATOPATHOLOGY LABORATORY at 1353 CDT Clinical History Superficial BCC 1:53 PM CDT [...] characteristic determined by the Dermatopathology Laboratory at [facility], directed by Dr. Colby Medina. These tests need not be, and therefore are not, approved by the [place] Food and Drug Administration. The tests are used for clinical purposes. Billing Codes Specimen Charges Stain Charges 21502 1 1:53 PM CDT DERMATOPATHOLOGY LABORATORY Embedded Images 1:53 PM CDT DERMATOPATHOLOGY LABORATORY Pathology/Cytolog y TISSUE SPECIMEN FROM SKIN / Unknown 11/30/2023 12/01/2023 11:24 AM CDT us Trev Melo MD LAB - PATHOLOGY/CYTOLOGY VANDANA STANLEY Final Result DERMATOPATHOLOGY LABORATORY [facility] - Department of Dermatology [address] [phone] documented in this encounter Visit Diagnoses Diagnosis Neoplasm of uncertain behavior of skin documented in this encounter
--- OUTSIDE RECORDS SUMMARY | 2024-08-02 09:44 | XMS_ITS | Clinical Summary ---
Author Organization [facility] Address [address] [place] [address] Care Team Providers Care Equine Pharmacology Technician Name Role Phone Unavailable Primary Care Provider Unavailabl e Source Comments [facility],non-owned Affiliates and Associated Physician Practices is amultiple site organization consisting of ambulatory clinics and hospital sitesin [place], [place], [place] and [place]. This disclosure is being madepursuant to the Care Everywhere program and may not contain all information available regarding this patient. 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
--- OUTSIDE RECORDS SUMMARY | 2024-08-02 09:44 | XMS_ITS | Referral Summary ---
Author Organization [facility] [address] Address [address] [place] [address] Care Team Providers Care Control Clerk Name Role Phone Neel Busch MD Primary Care Provider [phone]- [phone] Allergies No known active allergies Medications diclofenac [...] 10/25/2020 Assessment & Plan (01/21/2021 12:21 PM MAGAZINE SUPERVISOR): Patient continues on Sinemet 25/100 t.i.d. [...] so needed I would recommend referral to [facility] as such testing is not offered through this practice. Social History Tobacco Use Types Packs/Day Years Used Date Smoking Tobacco: Former Smokeless Tobacco: Former Personal Safety Answer Date Recorded Getting School Help Needed Not on file 02/14 Sex and Gender Information Value Date Recorded Sex Assigned at Not on file Legal Sex Male 8:13 PM MAGAZINE SUPERVISOR Gender Identity Male 12/02/2020 1:36 PM CDT Sexual Orientation Choose not to disclose 2020 1:36 PM CDT Last Filed Vital Signs Vital Sign Reading Time Taken Comments Blood Pressure 160/92 01/21/2021 11:50 AM MAGAZINE SUPERVISOR Pulse 90 01/21/2021 11:50 AM MAGAZINE SUPERVISOR Temperature 36.2 C (97.1 F) 01/21/2021 11:50 AM MAGAZINE SUPERVISOR Respiratory Rate - - Oxygen Saturation 97% 05/28/2020 9:10 AM CDT Inhaled Oxygen Concentration - - Weight 105.2 kg (232 lb) 01/21/2021 11:50 AM MAGAZINE SUPERVISOR Height 182.9 cm (6') 01/21/2021 11:50 AM MAGAZINE SUPERVISOR Body Mass Index 31.46 01/21/2021 11:50 AM MAGAZINE SUPERVISOR Plan of Treatment Not on file Insurance [facility] HMO REF Member Subscriber Plan / Payer (Ef fective 2020-Present) Name:Zechariah Velez Relation to Subscriber:Self Name:Zechariah Velez Payer ID:[id number] (NAIC) Type:[facility] Address: [place] [id number] [facility] MED[employer] ADVANTAGE Member Subscriber Plan / Payer (Ef fective 2022-Present) Name:Zechariah Velez Relation to Subscriber:Self Name:Zechariah Velez Payer ID:[id number] (NAIC) Type:[facility] [employer] Address: [place] [phone] Care Teams Control Clerk Relationship Specialty Start Date End Date Neel Busch MD [address] [place] [address] PCP - General Internal Medicine 05/11/20
--- OUTSIDE RECORDS SUMMARY | 2024-08-02 09:44 | XMS_ITS | Clinical Summary ---
Author Organization [facility] [address] Address [address] [place] [address] Care Team Providers Care Otolaryngology Nurse Name Role Phone Neel Busch MD Primary Care Provider [phone]- [phone] Allergies No known active allergies Medications diclofenac [...] 10/25/2020 Assessment & Plan (01/21/2021 12:21 PM MANAGER OFFICE SERVICES): Patient continues on Sinemet 25/100 t.i.d. at [...] so needed I would recommend referral to [facility] as such testing is not offered [...] on file Legal Sex Male 8:13 PM MANAGER OFFICE SERVICES Gender Identity Male 12/02/2020 1:36 PM CDT Sexual Orientation Choose not to disclose 2020 1:36 PM CDT Obstetrics History Last Filed Vital Signs Vital Sign Reading Time Taken Comments Blood Pressure 160/92 01/21/2021 11:50 AM MANAGER OFFICE SERVICES Pulse 90 01/21/2021 11:50 AM MANAGER OFFICE SERVICES Temperature 36.2 C (97.1 F) 01/21/2021 11:50 AM MANAGER OFFICE SERVICES Respiratory Rate - - Oxygen Saturation 97% 05/28/2020 9:10 AM CDT Inhaled Oxygen Concentration - - Weight 105.2 kg (232 lb) 01/21/2021 11:50 AM MANAGER OFFICE SERVICES Height 182.9 cm (6') 01/21/2021 11:50 AM MANAGER OFFICE SERVICES Body Mass Index 31.46 01/21/2021 11:50 AM MANAGER OFFICE SERVICES Plan of Treatment Not on file Insurance [facility] HMO REF [facility] MEDICARE ADVANTAGE Care Teams Otolaryngology Nurse Relationship Specialty Start Date End Date Neel Busch MD [address] [address] PCP - General Internal Medicine 05/11/20
== END 2024-08-02 09:05 | disposition home or self-care (01) ==
LOC: ANHIMG 09:08
PROVIDERS: PCP Internal Medicine; Visit Provider Neurological Surgery
DX: M16.12 Unilateral primary osteoarthritis, left hip (principal)
CPT/HCPCS: 73502

== ENCOUNTER 2024-09-05 08:00 | Outpatient (RCR) | payer MEDICARE, SELFPAY ==
--- NOTE | 2024-08-02 08:39 | OPREHPOC ---
Outpatient Therapy Plan of Care This is a Multidisciplinary Plan of Care that may contain components documented by all disciplines (PT, OT, and ST.) PT Problem 1 PT Problem #1 Knowledge Deficit PT Goal 1 Goal / Goal Update Pt. to demonstrate independence with HEP for self- reliance of symptom management. Target Visit 4 PT Problem 2 PT Problem #2 Pain PT Goal 1 Goal / Goal Update 1. Pt. to report a decrease of L groin pain upon initial weight bearing to less than 4/10 for 2 consecutive weeks. 2. Pt to report a decrease in L sided low back pain to less than 2/10 upon palpation. Target Visit 8 PT Problem 3 PT Problem #3 Impaired Strength PT Goal 1 Goal / Goal Update Pt. to increase B hip strength to >=4=/5 for improved stability required for ADLs. Target Visit 8 PT Problem 4 PT Problem #4 Impaired Range of Motion PT Goal 1 Goal / Goal Update Pt to improve Matthew hip internal and external ROM to WFL for improved LE dressing. Target Visit 8
--- NOTE | 2024-08-02 08:39 | PTOPEVAL1 ---
Assessment and note entered by Opal España, PT Evaluation Information Assessment Status Evaluation Diagnosis s/p laminectomy L3-4 ICD-10 Condition Codes (PT) Pain in low back M54.50,Pain in left hip M25.552, Encounter for other orthopedic aftercare Z47.89 Onset 06/28/24 Subjective Information Pt is currently s/p L3-4 laminectomy on 06/28/24. He reports no complications with surgery that he is aware of. He reports doing well overall but is having lingering discomfort on the L side in his low back. He reports applying pressure to that area causes pain. He is also reporting chronic groin pain in the L hip. He is going for an Xray of his hip after his evaluation here today. His primary concern is to get rid of pain. He reports his pain is worse when waking up but gets better throughout the day. His groin pain is worse with initial WB in the am. He wakes up very stiff. He notes an increase in pain if he works out in the yard too much. He is able to sleep in bed and only wakes to void. Denies changes in pain with voiding. Reported Pain Level Pain Score 4,4: Self Report Assessment PT Clinical Summary Pt is a 74 year old male who presents to physical therapy s/p L3/4 laminectomy on 06/28/24. His primary complaint is lingering low L sided low back and L groin pain. He has restrictions in lumbar and Matthew hip ROM, Matthew hip weakness, gait deficits, and tenderness upon palpation of lumbar musculature. The pt has non-reproducible groin pain upon special testing this date. The pt would benefit from skilled physical therapy services to address the above listed deficits and facilitate a return to his PLOF. Pt. was educated on HEP and provided a handout, all exercises were performed in clinic with no adverse effects. The pt. was also educated on anatomy and physiology, home modalities, PT POC and prognosis. Plan of Care Interventions Gait Training,Hot Pack/Cold Pack,Manual Therapy, Neuro Re-education,Therapeutic Activities, Therapeutic Exercise PT Services Indicated Yes Treatment Frequency and 2x/wk for 8 visits Duration These treatments will address the objective and functional deficits as defined above. The patient will be advanced safely and appropriately in order for the patient to progress towards his/her prior level of function. Additional exercises will be introduced and as well as a comprehensive home exercise program upon discharge, if needed, ?to ensure carryover of functional gains achieved in the clinic. This treatment plan has been reviewed and agreement upon by the patient.
--- NOTE | 2024-09-05 08:49 | OPREHPOC ---
Outpatient Therapy Plan of Care This is a Multidisciplinary Plan of Care that may contain components documented by all disciplines (PT, OT, and ST.) PT Problem 1 PT Problem #1 Knowledge Deficit PT Goal 1 Goal / Goal Update Pt. to demonstrate independence with HEP for self- reliance of symptom management. 09-05-24 d/c goal met Target Visit 4 Progress Met PT Problem 2 PT Problem #2 Pain PT Goal 1 Goal / Goal Update 1. Pt. to report a decrease of L groin pain upon initial weight bearing to less than 4/10 for 2 consecutive weeks. 2. Pt to report a decrease in L sided low back pain to less than 2/10 upon palpation. 09-05-24 d/c goal not met, pain up to 8/10 at times Target Visit 8 Progress Not Met PT Problem 3 PT Problem #3 Impaired Strength PT Goal 1 Goal / Goal Update Pt. to increase B hip strength to >=4/5 for improved stability required for ADLs. 09-05-24 d/c goal met Target Visit 8 Progress Met PT Problem 4 PT Problem #4 Impaired Range of Motion PT Goal 1 Goal / Goal Update Pt to improve Matthew hip internal and external ROM to WFL for improved LE dressing. 09-05-24 d/c goal met Target Visit 8 Progress Met
--- NOTE | 2024-09-05 08:49 | PTOPDC ---
Assessment and note entered by Sujata Eric, PT Assessment Status Discharge Diagnosis s/p laminectomy L3-4 ICD-10 Condition Codes (PT) Pain in low back M54.50,Pain in left hip M25.552, Encounter for other orthopedic aftercare Z47.89 Onset 06/28/24 Subjective Information doing better; still walk like I am drunk from the Parkinson's disease; am doing everything at home I usually do but have to watch how long I work and take breaks to rest; doing the exercises and ready to be done with therapy. Return to the in September; Reported Pain Level Pain Score Self Report Additional Pain Score Comments pain range in the past week of L hip and low back: 0-7/10; increase pain: when first wake up in AM decrease pain: move around, do stretch, anti inflammatory able to do work in yard 30-45 minutes Assessment PT Clinical Summary Zechariah has received a total of 7 PT sessions. Compared to the initial evaluation: pain range is the same of low back, L hip and groin areas 0-8/10 ; Self assessment Back Index rating from 38 to 30% %\ limitation in activity level; increase LE and trunk strength; R and L hip IR and ER ranges equal and without pain; education for HEP, body mechanics, posture and pain management techniques. The goals have been achieved, except pain rating at worst. Discharge PT. He is to continue with his HEP and techniques to manage back pain. Plan of Care PT Services Indicated No
== END 2024-09-05 12:11 | disposition home or self-care (01) ==
LOC: ANHPT 08:00
PROVIDERS: PCP Internal Medicine; Visit Provider Neurological Surgery
DX: Z98.1 Arthrodesis status (principal); Z98.890 Other specified postprocedural states; M54.50 Low back pain, unspecified; M25.552 Pain in left hip; Z47.89 Encounter for other orthopedic aftercare
CPT/HCPCS: 97110; 97140; 97162; 97530

== ENCOUNTER 2024-09-19 09:33 | Outpatient (CLI) | payer MEDICARE, SELFPAY ==
--- OUTSIDE RECORDS SUMMARY | 2024-09-19 09:56 | XMS_ITS | Encounter Summary ---
Author Organization [facility] Address [address] [place] [address] Care Team Providers Care Vp Home Health Name Role Phone Unavailable Primary Care Provider Unavailabl e Encounter Details Date Type Department Care Team (Late st Contact Info) Description 11/30/2023 Lab Requisition 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 Physician [facility] - Received: 12/01/2023 11:24 AM DermPath Lab [...] determined by the Dermatopathology Laboratory at [facility], directed by Dr. Colby Medina. These tests need not be, and therefore are not, approved by the [place] Food and Drug Administration. The tests are used for clinical purposes. Billing Codes Specimen Charges Stain Charges 24538 1 1:53 PM CDT DERMATOPATHOLOGY LABORATORY Embedded Images 1:53 PM CDT DERMATOPATHOLOGY LABORATORY Pathology/Cytolog y TISSUE SPECIMEN FROM SKIN / Unknown 11/30/2023 12/01/2023 11:24 AM CDT us Trev Melo MD LAB - PATHOLOGY/CYTOLOGY VANDANA STANLEY Final Result DERMATOPATHOLOGY LABORATORY [facility] - Department of Dermatology [address], [address] [phone] documented in this encounter Visit Diagnoses Diagnosis Neoplasm of uncertain behavior of skin documented in this encounter
--- OUTSIDE RECORDS SUMMARY | 2024-09-19 09:56 | XMS_ITS | Clinical Summary ---
Author Organization [facility] Address [address] [place] [address] Care Team Providers Care Client Server Programmer Name Role Phone Unavailable Primary Care Provider Unavailabl e Source Comments [facility],non-owned Affiliates and Associated Physician Practices is amultiple site organization consisting of ambulatory clinics and hospital sitesin [place], [place], [place] and [place]. This disclosure is being madepursuant to the Care Everywhere program and may not contain all information available regarding this patient. Last updated 17.[facility] Social History Tobacco Use Types Packs/Day Years Used Date Smoking Tobacco: Never Assessed Sex and Gender Information Value Date Recorded Sex Assigned at Not on file Legal Sex Male 10:44 AM SHIRT MARKER Gender Identity Not on file Sexual Orientation [...] MEDICARE AWV CALENDAR YEAR 2024 INFLUENZA VACCINE (#1) 2024 HEPATITIS B VACCINE Aged Out No [...] to complete this topic Insurance [address] [facility] [facility] [employer] MANAGED MEDICARE ADV [facility] MANAGED MEDICARE ADV
--- OUTSIDE RECORDS SUMMARY | 2024-09-19 09:56 | XMS_ITS | Clinical Summary ---
Author Organization [facility] [address] Address [address] [place] [address] Care Team Providers Care Inverted Block Operator Name Role Phone Neel Busch MD Primary Care Provider +1- [phone] Allergies No known active allergies Medications diclofenac [...] 10/25/2020 Assessment & Plan (01/21/2021 12:21 PM AUTO AIR CONDITIONING MECHANIC): Patient continues on Sinemet 25/100 t.i.d. at [...] so needed I would recommend referral to [facility] as such testing is not offered [...] on file Legal Sex Male 8:13 PM AUTO AIR CONDITIONING MECHANIC Gender Identity Male 12/02/2020 1:36 PM CDT Sexual Orientation Choose not to disclose 2020 1:36 PM CDT Obstetrics History Last Filed Vital Signs Vital Sign Reading Time Taken Comments Blood Pressure 160/92 01/21/2021 11:50 AM AUTO AIR CONDITIONING MECHANIC Pulse 90 01/21/2021 11:50 AM AUTO AIR CONDITIONING MECHANIC Temperature 36.2 C (97.1 F) 01/21/2021 11:50 AM AUTO AIR CONDITIONING MECHANIC Respiratory Rate - - Oxygen Saturation 97% 05/28/2020 9:10 AM CDT Inhaled Oxygen Concentration - - Weight 105.2 kg (232 lb) 01/21/2021 11:50 AM AUTO AIR CONDITIONING MECHANIC Height 182.9 cm (6') 01/21/2021 11:50 AM AUTO AIR CONDITIONING MECHANIC Body Mass Index 31.46 01/21/2021 11:50 AM AUTO AIR CONDITIONING MECHANIC Plan of Treatment Not on file Insurance [facility] HMO REF [facility] MEDICARE ADVANTAGE Care Teams Inverted Block Operator Relationship Specialty Start Date End Date Neel Busch MD [address] [address] PCP - General Internal Medicine 05/11/20
--- OUTSIDE RECORDS SUMMARY | 2024-09-19 09:56 | XMS_ITS | Referral Summary ---
Author Organization [facility] [address] Address [address] [place] [address] Care Team Providers Care Child Life Therapist Name Role Phone Neel Busch MD Primary Care Provider +1- [phone] Allergies No known active allergies Medications diclofenac [...] 10/25/2020 Assessment & Plan (01/21/2021 12:21 PM IMPLEMENTATION TECHNICIAN): Patient continues on Sinemet 25/100 t.i.d. at [...] so needed I would recommend referral to [facility] as such testing is not offered through this practice. Social History Tobacco Use Types Packs/Day Years Used Date Smoking Tobacco: Former Smokeless Tobacco: Former Personal Safety Answer Date Recorded Getting School Help Needed Not on file 02/14 Sex and Gender Information Value Date Recorded Sex Assigned at Not on file Legal Sex Male 8:13 PM IMPLEMENTATION TECHNICIAN Gender Identity Male 12/02/2020 1:36 PM CDT Sexual Orientation Choose not to disclose 2020 1:36 PM CDT Last Filed Vital Signs Vital Sign Reading Time Taken Comments Blood Pressure 160/92 01/21/2021 11:50 AM IMPLEMENTATION TECHNICIAN Pulse 90 01/21/2021 11:50 AM IMPLEMENTATION TECHNICIAN Temperature 36.2 C (97.1 F) 01/21/2021 11:50 AM IMPLEMENTATION TECHNICIAN Respiratory Rate - - Oxygen Saturation 97% 05/28/2020 9:10 AM CDT Inhaled Oxygen Concentration - - Weight 105.2 kg (232 lb) 01/21/2021 11:50 AM IMPLEMENTATION TECHNICIAN Height 182.9 cm (6') 01/21/2021 11:50 AM IMPLEMENTATION TECHNICIAN Body Mass Index 31.46 01/21/2021 11:50 AM IMPLEMENTATION TECHNICIAN Plan of Treatment Not on file Insurance [facility]CR HMO REF Member Subscriber Plan / Payer (Ef fective 2020-Present) Name:Zechariah Velez Relation to Subscriber:Self Name:Zechariah Velez Payer ID:[id number] (NAIC) Type:[facility] MEDICARE Address: [place] [phone] [facility] MEDICARE ADVANTAGE Member Subscriber Plan / Payer (Ef fective 2022-Present) Name:Zechariah Velez Relation to Subscriber:Self Name:Zechariah Velez Payer ID:[id number] (NAIC) Type:[facility] MEDICARE Address: [place] [phone] Care Teams Child Life Therapist Relationship Specialty Start Date End Date Neel Busch MD [address] [place] [address] PCP - General Internal Medicine 05/11/20
--- NOTE | 2024-10-13 18:20 | WPDSLEEPSTUD ---
Sleep Study Date of Study: 09/19/24 Ordering Provider: Teresa Wyman MD Interpreting Physician: Teresa Wyman MD Sleep Study Type: Polysomnogram Height: 1.83 m Weight: 97.522 kg Body Mass Index: 29.1 Neck Circumference (inches): 17 [place]: 7 Reason for Sleep Study Acting out dreams Sleep History Zechariah Velez is a 74-year-old man with symptoms of Parkinson Disease and acting out his dreams. His sleeps in a separate room due to his punching at night during sleep. He also feels sleepy in the daytime. He has started taking melatonin and clonazepam at night, and these are helping with his dream enactment. He never awakens from sleep feeling short of breath. He never wakes at night with heartburn, belching or coughing.?He occasionally snores, and occasionally snores loudly enough that others complain. He rarely has trouble sleeping when he has a cold. He never wakes up gasping for breath during the night. He rarely has breathing problems at night. He never sweats excessively at night. He never notices his heart pounding or beating irregularly during the night. He occasionally falls asleep during the day. He never falls asleep involuntarily, never falls asleep while driving. He never experiences loss of muscle tone with strong emotion. He never has daytime difficulty at work due to excessive sleepiness. He never feels paralyzed on waking or falling asleep. He occasionally experiences vivid dreams upon waking or falling asleep. He never feels afraid of going to sleep. He rarely has nightmares. He rarely recalls his dreams. He occasionally has thoughts racing through his mind. He never feels sad or depressed. He rarely feels anxiety. He occasionally notices parts of his body jerk. He occasionally kicks during the night. He rarely feels crawling or aching feelings in his legs. He rarely feels leg pain at night. He never has morning jaw pain, never grinds his teeth at night. He frequently feels bothered by pain during the day, occasionally is awakened by pain during the night. He frequently wakes up feeling stiff in the morning, and he frequently wakes feeling sore or achy. He frequently awakens with pain in his neck, spine, or joints. Normal bedtime is 10:30 p.m., falling asleep within 10-15 minutes, waking 3 times during the night to go to the bathroom. These awakenings last 15-30 minutes before he is able to return to sleep. He typically gets 6 hours of sleep per night. His wake up time is 6:00 a.m.. He takes naps in the day, and a short nap lasting 10-15 minutes can leave him feeling refreshed afterwards. Habits:??Tobacco:former smoker, quit 10 years ago Caffeine: 2-3 per day Alcohol: 1 beer PMFSH Past Medical History Medical History Excessive daytime sleepiness Snoring BMI 28.0-28.9,adult Hyperglycemia GIST (gastrointestinal stromal tumor), malignant Anemia, unspecified Allergic rhinitis, unspecified Adult general medical exam REM behavioral disorder Right hand weakness Parkinson disease History of stomach cancer History of blood transfusion Essential (primary) hypertension Pure hypercholesterolemia Surgical History Surgical History History of lumbar laminectomy Hx of prostatectomy 12/2021 Hx of cataract surgery H/O inguinal hernia repair x2 History of surgery for malignant neoplasm of the stomach Family History Family History Mother Hypertension Father Family history of malignant neoplasm of thyroid Sibling Cancer Social History Social History Years smoked: 5 Smoking status: Former smoker Second hand tobacco smoke exposure: No Smoking end date: 02/16/04 Additional smoking assessment comments: STATES SMOKED WHEN BOWLING 1PK/EVERY COUPLE OF MONTHS/5 YRS Alcohol intake: current Drinks per week: 7 Substance use: current Substance use type: marijuana Other substance usage details: smoke once a week, gummies recreationally few times a week Do You Feel Safe in your Home?: Yes Lack of Transportation: No Lack of Food: Never True Current Housing: I Have Housing Concerned About Future Housing: No Difficulty Paying Gas/Electric Bills: No Difficulty Paying for Meds: No Currently Unemployed: No Education: Bachelor's Degree Difficulty w/ Childcare or Family Care: No Living arrangements: with family Additional living arrangements comments: Pt's 97 y/o mother moved in and is stressing him out. 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 Gender identity (if verbalized by the patient): Male Spiritual care concerns: No Medications Home Medications ?Medication ?Instructions ?Recorded ?Confirmed ?Type amlodipine 5 mg tablet 5 mg PO DAILY #90 tabs 12/19/23 08/30/24 Rx ciclopirox 8 % topical solution 1 applic topical QHS 4 weeks #6.6 06/01/24 08/30/24 Rx mL carbidopa 25 mg-levodopa 100 mg 2 tablet PO TID #180 tabs 07/24/24 08/30/24 Rx tablet (Sinemet) clonazepam 0.5 mg tablet (Klonopin) 0.5 mg PO QHS #90 tabs 07/24/24 08/30/24 Rx gabapentin 300 mg capsule 300 mg PO TID #90 caps 07/24/24 08/30/24 Rx melatonin 5 mg capsule mg PO .HS 08/30/24 08/30/24 History diphenoxylate-atropine 2.5 1 tablet PO TID PRN diarrhea #30 09/13/24 Rx mg-0.025 mg tablet (Lomotil) tabs diclofenac sodium 75 mg 75 mg PO BID #180 tabs 09/26/24 Rx tablet,delayed release Sleep Procedure A full night polysomnogram using the [employer] SleepModular Patterns multi-channel system recorded the standard physiologic parameters including EEG, EOG, submentalis EMG, anterior tibialis EMG, EKG, body position, nasal and oral airflow using nasal pressure sensor and thermistor. Respiratory parameters of chest and abdominal movements were recorded with Respiratory Inductance Plethysmography belts. Oxygen saturation was recorded by pulse oximetry. Video monitoring was also performed. Sleep stages, periodic limb movements, and EEG arousals were scored in 30 second epochs according to the criteria of the AASM Scoring Manual. The Apnea-Hypopnea Index was calculated using CMS guidelines for definition of hypopnea while scoring respiratory events. The patient took clonazepam and melatonin prior to the start of the study. He is also on carbidopa and gabapentin. He slept in the lateral position with non-REM and REM sleep. He attempted to sleep supine but was unable to sleep in that position. He had multiple limb movements throughout the night. Mild snoring. He was awake 3 times to go to the bathroom. During REM he had some liquidy and occasional arm movements. He did not qualified to be a split night therefore this was conducted as a basic polysomnogram. Sleep Architecture The total recording time was 411.9 minutes. The total sleep time was 219.5 minutes. Sleep latency was 23.1 minutes. REM latency was 130.5 minutes. Sleep efficiency was 53.3%. The patient had 13 awakenings for an awakening index of 3.6. Wake after sleep onset time was 169.0 minutes. The patient spent 31.5 minutes, 14.4% of total sleep time in Stage N1. The patient spent 143.0 minutes, 65.1% in Stage N2. The patient spent no time in Stage N3. The patient spent 45.0 minutes, 20.5% in Stage REM sleep. Respiratory Analysis The patient had 1 hypopnea, no obstructive apneas, no mixed apneas, and no central apneas for an overall Apnea Hypopnea Index of 0.3. The REM Apnea Hypopnea Index was 0. The NREM Apnea Hypopnea Index was 0.3. The patient had a Central Apnea Hypopnea Index of 0. There were no Respiratory Effort Related Arousals. The Respiratory Disturbance Index is 0.3 events per hour. There was no evidence of Giacomo-Braswell Respirations. Arousals There were 109 total arousals for an arousal index of 29.8. There were 41 spontaneous arousals for an index of 11.2. There were no arousals due to respiratory events. There were 68 arousals due to periodic limb movements for an index of 18.6. There were no arousals due to isolated limb movements. Periodic Limb Movements The patient had no isolated limb movements. The patient had 451 periodic limb movements with an index of 123.3. Patient had a total of 451 limb movements with a total limb movement index of 123.3. Oximetry Data The patient had an average oxygen saturation of 92.5% in sleep with a minimum oxygen saturation of 89% and a maximum oxygen saturation of 96%. The patient had 4 oxygen desaturations that were 4% or greater resulting in an Oxygen Desaturation Index of 1.1. The patient spent 1.8 minutes with an oxygen saturation below 88%, 0.4% of the night. Snoring Profile Snoring was mild and infrequent. Cardiac Profile The EKG showed normal sinus rhythm, average pulse rate of 55.3 bpm with a minimum pulse of rate of 45 bpm and a maximum pulse rate of 127 bpm. No arrhythmias noted. EEG Profile Unremarkable, no evidence of seizures. He has REM sleep without atonia during both episodes of REM, mainly in the right hand. He has EEG evidence of muscle activation which was not visible on video. Assessment and Plan Assessment and Plan (1) REM behavioral disorder: Code(s): G47.52 - REM sleep behavior disorder Status: Acute Assessment and Plan: This full night polysomnogram on 09/19/2024 does not show sleep disordered breathing. His apnea-hypopnea index is 0.3 and lowest saturation is 89%. The patient has REM sleep without atonia seen in both episodes of REM during this night. He had significant movement especially in the right arm and both legs. He has Parkinson disease which can be associated with REM behavior disorder. He is on melatonin 5 mg and clonazepam 0.5 mg. He is on the starting dose of melatonin, 5 mg. This can be increased by 3 mg increments up to a maximum of 18 mg as needed to decrease the amount of unwanted behaviors such as sleep talking and movements. Melatonin increases REM sleep atonia and decreases REM behaviors. Start with regular melatonin 3 mg or time-released melatonin 5 mg, increasing the dose every 2 weeks until desired result is achieved. Best brands for melatonin include Natrol, [employer], and NatureMade. Other recommendations to reduce REM behaviors includes minimizing alcohol. Clinical correlation is recommended. He may be able to tolerate increased doses of melatonin and clonazepam. (2) PLMD (periodic limb movement disorder): Code(s): G47.61 - Periodic limb movement disorder Status: Acute Assessment and Plan: He had excessive limb movements meeting criteria for periodic limb movement disorder. The periodic limb movement index is 123.3 and the periodic limb movement arousal index is 18.6. These elevated limb movements causing arousal are sufficient to lead to excessive daytime sleepiness. Ferritin level is indicated to exclude iron deficiency anemia as a contributing factor. Ferritin should be 75 ng/mL or greater. If ferritin is below this, iron supplementation should be given to achieve ferritin of 75 ng/mL. There are nonpharmacologic methods to treat limb movements including daily exercise, stretching calf muscles before bed, avoiding excessive amounts of caffeine and alcohol, vitamin B supplementation, magnesium lotion massaged into legs before bed, and use of a weighted blanket. Pharmacologic therapy is very effective for restless legs syndrome and limb movements during sleep and may include [id number] voltage-gated calcium channel ligands such as gabapentin which is preferable to dopaminergic agents which can have augmentation. He is on carbidopa 25 mg/levodopa 100 mg (Sinemet) two tablets TID for Parkinson disease. This medication is a treatment for PLM disorder. Clinical correlation recommended for medication management for his leg movements in the setting of Parkinson disease. Data The data obtained during this sleep study is adequate for interpretation. Certification This sleep study has been reviewed by a board certified sleep medicine physician.
[2024-10-19 22:19] VITALS: BMI 29.1
== END 2024-09-20 05:55 | disposition home or self-care (01) ==
LOC: ANHCSM 09:36
PROVIDERS: PCP Internal Medicine; Visit Provider Internal Medicine Critical Care Medicine
DX: G47.52 REM sleep behavior disorder (principal); G47.61 Periodic limb movement disorder
CPT/HCPCS: 95810

== ENCOUNTER 2024-11-04 16:45 | Inpatient (IN) | payer MEDICARE, SELFPAY ==
[2024-11-04] VITALS (8 sets, daily range): BP systolic 107–135; BP diastolic 71–88; PULSE 83; RESP 16; TEMP 37; O2SAT 96–100
--- NOTE | ~2024-11-04 | XR_ITS ---
EXAMINATION: XR sm bowel follow through WS DATE: 11/06/2024 11:56 INDICATION: Small bowel obstruction TECHNIQUE: Water-soluble oral contrast was administered, and sequential radiographs of the abdomen were obtained until oral contrast was noted to be in the proximal colon. COMPARISON: KUB dated 11/06/2024 FINDINGS: Nasogastric tube tip in the distal stomach. Transit time from the stomach to proximal colon was approximately 30 minutes. There is normal caliber and mucosal fold pattern throughout the small bowel. Multiple phleboliths in the left hemipelvis. IMPRESSION: 1. Normal small bowel follow-through with normal transit time of 30 minutes and no dilated bowel to suggest obstruction. Reviewed, dictated and finalized at location A.
--- NOTE | ~2024-11-04 | XR_ITS ---
Abdominal radiograph(s) INDICATION: NG tube COMPARISON: Hours prior TECHNIQUE: Portable supine AP abdomen, including lower chest and upper abdomen FINDINGS/IMPRESSION: 1. NG tube sidehole just past GE junction. Consider slight further advancement to maximize efficacy. 2. No other acute abnormality identified. Reviewed, dictated and finalized at location R.
--- NOTE | ~2024-11-04 | XR_ITS ---
Abdominal radiograph(s) INDICATION: NG tube COMPARISON: One hour prior TECHNIQUE: Portable upright AP abdomen, including lower chest and upper abdomen FINDINGS/IMPRESSION: 1. NG tube tip within gastric fundus. 2. No other acute abnormality. Reviewed, dictated and finalized at location R.
--- NOTE | ~2024-11-04 | XR_ITS ---
EXAMINATION: XR abdomen/kub 1V DATE: 11/06/2024 05:41 INDICATION: Small bowel obstruction TECHNIQUE: A supine view of the abdomen on 2 radiographs was obtained. COMPARISON: CT dated 11/04/2024 FINDINGS: Nasogastric tube tip in proximal side port in the body the stomach. Moderate amount of gas and stool scattered throughout the colon. No dilated gas-filled small bowel to suggest obstruction. Unchanged mild elevation the left hemidiaphragm. Multiple phleboliths in the left hemipelvis. IMPRESSION: 1. Nasogastric tube in stomach. No dilated loops of gas-filled bowel to suggest obstruction. Reviewed, dictated and finalized at location A.
--- NOTE | ~2024-11-04 | XR_ITS ---
Abdominal radiograph(s) INDICATION: NG tube COMPARISON: CT 1 day prior TECHNIQUE: Portable upright AP abdomen, including majority of chest and upper abdomen FINDINGS/IMPRESSION: 1. NG tube tip just past GE junction, recommend further advancement. 2. Enteric gaseous dilatation consistent with small bowel obstruction. 3. Lungs poorly seen given overpenetration. Reviewed, dictated and finalized at location R.
--- NOTE | ~2024-11-04 | XR_ITS ---
EXAMINATION: XR abdomen gastric tube rechec, 11/05/2024 16:25 CDT HISTORY: Verify NG tube placement, advanced tube 6-8 inches COMPARISON: No comparisons available. Technique: 3 view. Findings: Bowel gas pattern unremarkable. No obstruction. No free air. No abnormal calcifications No acute osseous abnormality. Nasogastric tube terminates in the mid stomach. Impression: 1. Nasogastric tube in appropriate location Reviewed, dictated and finalized at location A. Impression: 1. Nasogastric tube in appropriate location
--- NOTE | ~2024-11-04 | CT_ITS ---
EXAMINATION: CT abdomen pelvis w con DATE: 11/04/2024 22:50 INDICATION: Abdominal pain. Nausea and vomiting. TECHNIQUE: Computed tomography (CT) of the abdomen and pelvis was performed with 100 mL Omnipaque 350 intravenous contrast. Automated exposure control and iterative reconstruction technique were employed. The dose-length product was 509.09 mGy-cm. COMPARISON: CT abdomen and pelvis 10/13/2021 FINDINGS: The visualized portions of the lung bases demonstrate mild atelectasis. No pleural effusion. The heart size is normal. No pericardial effusion. The liver and spleen are normal. The gallbladder is distended. The pancreas, adrenal glands, and kidneys are normal. The stomach is distended. There are multiple dilated loops of small bowel with transition point in the anterior abdomen. The distal small bowel is decompressed. There is a left inguinal hernia containing fat. There are likely changes of right inguinal hernia repair. There are no pathologically enlarged lymph nodes. There is trace pelvic ascites. There is severe thoracic and lumbar spondylosis. IMPRESSION: 1. Small bowel obstruction with transition point in the anterior abdomen. Reviewed, dictated and finalized at location E.
[2024-11-04 19:43] LABS: Hematocrit 47.5 % (42.0-52.0); Hemoglobin 15.5 g/dL (14.0-18.0); Immature Granulocyte Percent A 0.3 % (0-0.5); Lymphocytes Absolute Auto 0.54 K/mm3 (0.9-3.2); Mean Corpuscular HGB Conc 32.6 g/dl (32-36); Mean Corpuscular Hemoglobin 31.3 pg (26-34); Mean Corpuscular Volume 95.8 fl (80-100); Nucleated Red Blood Cells Absolute Auto 0.000 K/mm3 (0.0-0.012); Nucleated Red Blood Cells Perc 0.0 % (0.0-0.2); Platelet Count Result 264 k/mm3 (150-375); Red Blood Count 4.96 M/mm3 (4.6-6.20); White Blood Count 16.0 K/mm3 (4.5-10.0)
[2024-11-04 19:59] LABS: Alanine Aminotransferase 9 U/L (6-50); Albumin Level 5.2 g/dL (3.5-5.1); Alkaline Phosphatase 79 U/L (38-126); Anion Gap 12 mmol/L (4-12); Aspartate Amino Transferase 30 U/L (17-59); Bilirubin,Total 4.0 mg/dL (0.2-1.3); Blood Urea Nitrogen 54 mg/dL (9-20); Calcium 10.1 mg/dL (8.4-10.2); Carbon Dioxide 28 mmol/L (22-30); Chloride 98 mmol/L (98-107); Estimated CRCL calculation 38 ml/min; Estimated Glomerular Filt Rate 41; Glucose 165 mg/dL (65-110); Lipase 95 U/L (23-300); Potassium 4.6 mmol/L (3.4-5.0); Sodium 138 mmol/L (137-145); Total Protein 8.6 g/dL (6.3-8.2)
[2024-11-04] MEDS: PANTOPRAZOLE SODIUM IV 40 MG VIAL IV PUSH (20:40)
[2024-11-04] MEDS: ONDANSETRON INJ 4 MG/2 ML VIAL IV PUSH (20:40)
[2024-11-04] MEDS: LACTATED RINGERS 1,000 ML 999 ML IV CONT (20:41)
[2024-11-04 21:30] LABS: Add Urine Microscopic? YES; Appearance Urine Cloudy (Clear); Glucose Urine UA Negative (Negative); Leukocyte Esterase Ur Trace LEU/UL (Negative); Need Manual Microscopic Reviewed; Nitrate Urine Negative (Negative); Non Pathogenic Casts >20; Specific Grav Ur 1.030 (1.001-1.035)
--- NOTE | 2024-11-04 23:12 | ED_ITS ---
HPI - Abdominal Pain General Chief Complaint: Abdominal Pain Stated Complaint: abd pain Time Seen by Provider: 11/04/24 20:21 History of Present Illness HPI narrative: Patient here with lower abdominal pain that started last night, describes a burning sensation, worse after eating. Kept him awake, some slight nausea, he has been having normal bowel movements. Related Data Home Medications ?Medication ?Instructions ?Recorded ?Confirmed ?Last Taken ?Type melatonin 5 mg capsule mg PO .HS 08/30/24 08/30/24 Unknown History Allergies Allergy/AdvReac Type Severity Reaction Status Date / Time No Known Allergies Allergy Verified 11/04/24 16:51 Review of Systems 2 Review of Systems: All systems reviewed & are unremarkable except as noted in HPI and below PMFSH Past Medical History Medical History Excessive daytime sleepiness Snoring BMI 28.0-28.9,adult Hyperglycemia GIST (gastrointestinal stromal tumor), malignant Anemia, unspecified Allergic rhinitis, unspecified Adult general medical exam REM behavioral disorder Right hand weakness Parkinson disease History of stomach cancer History of blood transfusion Essential (primary) hypertension Pure hypercholesterolemia Surgical History Surgical History History of lumbar laminectomy Hx of prostatectomy 12/2021 Hx of cataract surgery H/O inguinal hernia repair x2 History of surgery for malignant neoplasm of the stomach Family History Family History Mother Hypertension Father Family history of malignant neoplasm of thyroid Sibling Cancer Social History Social History Years smoked: 5 Smoking status: Former smoker Second hand tobacco smoke exposure: No Smoking end date: 02/16/04 Additional smoking assessment comments: STATES SMOKED WHEN BOWLING 1PK/EVERY COUPLE OF MONTHS/5 YRS Alcohol intake: current Drinks per week: 7 Substance use: current Substance use type: marijuana Other substance usage details: smoke once a week, gummies recreationally few times a week Do You Feel Safe in your Home?: Yes Lack of Transportation: No Lack of Food: Never True Current Housing: I Have Housing Concerned About Future Housing: No Difficulty Paying Gas/Electric Bills: No Difficulty Paying for Meds: No Currently Unemployed: No Education: Bachelor's Degree Difficulty w/ Childcare or Family Care: No Living arrangements: with family Additional living arrangements comments: Pt's 97 y/o mother moved in and is stressing him out. 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 EYES: EOMI, conjunctiva normal ENT: Hearing grossly intact LUNGS: Nonlabored breathing. HEART: [Regular rate and rhythm] ABD: [Soft], some tenderness to lower abdomen EXT: Normal range of motion SKIN: [No rashes or lesions.] NEURO: [Alert and oriented x 3. No gross focal sensory or strength deficits.] PSYCH: Normal affect Course Vital Signs Vital signs: Vital Signs Temperature 98.6 F 11/04/24 16:48 Pulse Rate 83 11/04/24 16:48 Respiratory Rate 16 11/04/24 16:48 Blood Pressure 107/71 11/04/24 16:48 Pulse Oximetry 100 11/04/24 16:48 Oxygen Delivery Room Air 11/04/24 16:48 Temperature 98.6 F 11/04/24 16:48 Pulse Rate 83 11/04/24 16:48 Respiratory Rate 16 11/04/24 16:48 Blood Pressure 130/83 11/04/24 21:16 Pulse Oximetry 98 11/04/24 22:06 Oxygen Delivery Room Air 11/04/24 16:48 MDM - Abdominal Pain MDM Narrative Medical decision making narrative: Electronic medical record was reviewed. Patient presented to the ED with complaint of [abdominal pain and nausea]. Vitals [were within acceptable limits]. Physical exam revealed [tenderness to palpation in lower abdomen]. Based on the patient's history and physical exam, my differential includes but is not limited to [gastritis, gastroenteritis, cholecystitis, diverticulitis, colitis, appendicitis, bowel obstruction]. [IV access was established by nursing staff. Patient was given zofran, Protonix, fluids]. CBC, BMP, lipase, LFTs, bilirubin and alk phos were obtained. Labs were pertinent for white count 16, creatinine 1.65 (baseline). [Decision was made to obtain a CT-abdomen to evaluate for acute abdominal process. CT-abdomen per radiology interpretation shows high-grade bowel obstruction with transition point right lower quadrant]. NG tube placed for decompression, case discussed with general surgeon who agrees to consult, discussed with hospitalist for admission, updated patient and family on plan Lab Data 11/04/24 19:33 11/04/24 19:33 Labs: Lab Results 11/04/24 11/04/24 Range/Units 19:33 21:14 WBC 16.0 H (4.5-10.0) K/mm3 RBC 4.96 (4.6-6.20) M/mm3 Hgb 15.5 (14.0-18.0) g/dL Hct 47.5 (42.0-52.0) % MCV 95.8 (80-100) fl MCH 31.3 (26-34) pg MCHC 32.6 (32-36) g/dl RDW 13.3 (11.5-14.5) % Plt Count 264 (150-375) k/mm3 MPV 9.9 (7.4-10.4) fl Immature Gran % (Auto) 0.3 (0-0.5) % Neut % (Auto) 86.6 H (45.5-73.1) % Lymph % (Auto) 3.4 L (18.3-44.2) % [place] % (Auto) 9.3 H (2.6-8.5) % Eos % (Auto) 0.1 (0-4.4) % Baso % (Auto) 0.3 (0.2-1.2) % Lymph # (Auto) 0.54 L (0.9-3.2) K/mm3 [place] # (Auto) 1.5 H (0.1-0.6) K/mm3 Eos # (Auto) 0.0 (0-0.3) K/mm3 Baso # (Auto) 0.0 (0.0-0.1) K/mm3 Abs Immat Gran (auto) 0.05 H (0.00-0.031) K/mm3 Absolute Neuts (auto) 13.8 H (1.3-6.7) K/mm3 Absolute Nucleated RBC 0.000 (0.0-0.012) K/mm3 Nucleated RBC % 0.0 (0.0-0.2) % Sodium 138 (137-145) mmol/L Potassium 4.6 (3.4-5.0) mmol/L Chloride 98 (98-107) mmol/L Carbon Dioxide 28 (22-30) mmol/L Anion Gap 12 (4-12) mmol/L BUN 54 H D (9-20) mg/dL Creatinine 1.65 H (0.7-1.3) mg/dL Estim Creat Clear Calc 38 ml/min Estimated GFR 41 L (59 - ) Glucose 165 H (65-110) mg/dL Calcium 10.1 (8.4-10.2) mg/dL Total Bilirubin 4.0 H (0.2-1.3) mg/dL AST 30 (17-59) U/L ALT 9 (6-50) U/L Alkaline Phosphatase 79 (38-126) U/L Total Protein 8.6 H (6.3-8.2) g/dL Albumin 5.2 H (3.5-5.1) g/dL Lipase 95 (23-300) U/L Urine Color Dark yellow (Yellow) Urine Appearance Cloudy H (Clear) Urine pH 5.0 (5.0-9.0) Ur Specific [place] 1.030 (1.001-1.035) Urine Protein 1+ H (Negative) mg/dL Urine Glucose (UA) Negative (Negative) mg/dL Urine Ketones 1+ H (Negative) mg/dL Ur Blood (Man) Negative (Negative) Urine Nitrate Negative (Negative) Urine Bilirubin 2+ H (Negative) Urine Urobilinogen 1.0 (<2.0) mg/dL Add Ur Microanalysis Reviewed Leukocyte Esterase Rfl Trace H (Negative) KAM/UL Urine RBC 0-2 (0-2) /hpf Urine WBC 0-5 (0-3) /hpf Ur Squamous Epith Cells None seen (Few) /hpf Urine Bacteria None seen /hpf Urine Casts >20 Urine Mucus Present /lpf Discharge Plan Discharge Clinical Impression: Bowel obstruction Patient Disposition: Still a Patient Condition: Stable
[2024-11-05] VITALS (12 sets, daily range): BP systolic 132–157; BP diastolic 80–93; PULSE 66–81; RESP 16–18; TEMP 36.6–36.9; O2SAT 92–98; BMI 26.6
--- NOTE | 2024-11-05 03:57 | ADMGEN ---
This patient, Zechariah Velez, was admitted to 3 [facility] Surg Room 316-02. Patient/family oriented to hospital policies and general routines including ID bracelet, bed and alarms, visiting hours, pain management, procedures, bathroom and other care routines, personal items, smoking policy, room service/diet, and visiting hours. Information on how to activate the Rapid Response Team has been discussed. Patient/Family are encouraged to report perceived risks to care and to ask questions if they do not understand what they are told or what they should do.
--- NOTE | 2024-11-05 05:46 | P.HP_ITS ---
H&P: HPI History of Present Illness Date/Time: 11/05/24 05:46 Chief Complaint: Abdominal pain Narrative: This is a 74-year-old male patient who has had multiple abdominal surgeries. The patient seated on the evening of the he was having some diffuse abdominal pain. He stated that his pain was burning to his mid abdomen. The pain was worse after he ate. The pain kept him up all night and he had some sl ight nausea. The patient stated he has been having normal bowel movements. He denies ever having any small-bowel obstruction.CT-abdomen per radiology interpretation shows high-grade bowel obstruction with transition point right lower quadrant]. NG tube placed for decompression, case discussed with general surgeon who agrees to consult. His white count is 16.0 with neutrophil percentage 86.6. BUN 54 creatinine of 1.65 with a normal baseline 5 months ago. His blood sugar was 165. Urine was cloudy 1+ protein, 1+ ketones, 1+ urine bilirubin, trace leukocyte esterase. The patient was given lactated Ringer's, Zofran and Protonix. The patient is being admitted to inpatient status on the date of service of 11/05/2024 Review of Systems Constitutional: Constitutional: Reports as per HPI and Reports no additional constitutional complaints Eyes: Eyes: Reports as per HPI and Reports no additional eye complaints ENT: Reports system reviewed and no additional complaints, except as documented and Reports Normal hearing present Cardiovascular: Cardiovascular: Reports no additional cardiovascular complaints Respiratory: Respiratory: Reports as per HPI and Reports no additional respiratory complaints Gastrointestinal: Gastrointestinal: Reports as per HPI and Reports no additional gastrointestinal complaints Musculoskeletal: Musculoskeletal: Reports no additional musculoskeletal compla ints Integumentary/Breasts: Skin/Breast: Reports system reviewed and no additional complaints, except as docu Neurologic: Reports system reviewed and no additional complaints, except as documented and Reports Normal hearing present Psychiatric: Psychiatric: Reports no additional psychiatric complaints and Reports as per HPI Hematologic/Lymphatic: Hematologic/Lymphatic: Reports no additional hematologic/lymphatic complaints Allergic/Immunologic: Allergic/Immunologic: Reports no additional allergic/immunologic complaints FOR[facility] Past Medical History Medical History Excessive daytime sleepiness Snoring BMI 28.0-28.9,adult Hyperglycemia GIST (gastrointestinal stromal tumor), malignant Anemia, unspecified Allergic rhinitis, unspecified Adult general medical exam REM behavioral disorder Right hand weakness Parkinson disease History of stomach cancer History of blood transfusion Essential (primary) hypertension Pure hypercholesterolemia Surgical History Surgical History History of lumbar laminectomy Hx of prostatectomy 12/2021 Hx of cataract surgery H/O inguinal hernia repair x2 History of surgery for malignant neoplasm of the stomach Family History Family History Mother Hypertension Father Family history of malignant neoplasm of thyroid Sibling Cancer Social History Social History (Updated 11/05/24 @ 05:56 by Karol Pickens APRN) Social History: The patient is retired pharmacist. He lives with his and he has 4 children. Code status full code. Years smoked: 5 Smoking status: Never smoker Second hand tobacco smoke exposure: No Smoking end date: 02/16/04 Additional smoking assessment comments: STATES SMOKED WHEN BOWLING 1PK/EVERY COUPLE OF MONTHS/5 YRS Alcohol intake: current Drinks per week: 7 Substance use: current Substance use type: marijuana Other substance usage details: smoke once a week, gummies recreationally few times a week Last use: 10 days ago Do You Feel Safe in your Home?: Yes Lack of Transportation: No Lack of Food: Never True Current Housing: I Have Housing Concerned About Future Housing: No Difficulty Paying Gas/Electric Bills: No Difficulty Paying for Meds: No Currently Unemployed: No Education: Master's Degree or Higher Difficulty w/ Childcare or Family Care: No Living arrangements: with family Additional living arrangements comments: Pt's 97 y/o mother moved in and is stressing him out. 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 Gender identity (if verbalized by the patient): Male Spiritual care concerns: No Meds Home Medications and Allergies Home Medications ?Medication ?Instructions ?Recorded ?Confirmed ?Type amlodipine 5 mg tablet 5 mg PO DAILY #90 tabs 12/1811/05/24 Rx ciclopirox 8 % topical solution 1 applic topical QHS 4 weeks #6.6 06/01/24 11/05/24 Rx mL carbidopa 25 mg-levodopa 100 mg 2 tablet PO TID #180 t abs 07/24/24 11/05/24 Rx tablet (Sinemet) clonazepam 0.5 mg tablet (Klonopin) 0.5 mg PO QHS #90 tabs 07/24/24 11/05/24 Rx gabapentin 300 mg capsule 300 mg PO TID #90 caps 07/2411/05/24 Rx melatonin 5 mg capsule 5 mg PO .HS 08/30/24 5 History diclofenac sodium 75 mg 75 mg PO BID #180 tabs 09/2611/05/24 Rx tablet,delayed release Allergies Allergy/AdvReac Type Severity Reaction Status Date / Time No Known Allergies Allergy Verified 11/04/24 16:51 Vital Signs Vital Signs - 24 hr 11/04/24 16:48 11/04/24 20:37 11/04/24 20:38 Temperature 98.6 F Pulse Rate 83 Respiratory Rate 16 Blood Pressure 107/71 135/88 Pulse Oximetry 100 100 100 Oxygen Delivery Room Air 11/04/24 20:47 11/04/24 21:08 11/04/24 21:15 Temperature Pulse Rate Respiratory Rate Blood Pressure Pulse Oximetry 97 96 96 Oxygen Delivery 11/04/24 21:16 11/04/24 22:06 11/05/24 01:12 Temperature Pulse Rate Respiratory Rate Blood Pressure 130/83 Pulse Oximetry 96 98 97 Oxygen Delivery 11/05/24 01:15 11/05/24 01:30 11/05/24 01:46 Temperature Pulse Rate Respiratory Rate Blood Pressure Pulse Oximetry 95 96 94 Oxygen Delivery 11/05/24 02:35 11/05/24 02:45 11/05/24 03:36 Temperature 98.0 F Pulse Rate 72 Respiratory Rate 18 Blood Pressure 157/93 H Pulse Oximetry 95 97 96 Oxygen Delivery Exam Const: General: cooperative, comfortable, no acute distress, well developed, awake, Physically active, ill appearing, average body habitus and well nourished Nutritional Appearance: average body habitus and well nourished Orientation/consciousness: oriented to person, oriented to place, oriented to time and patient oriented x3 Limitations: no limitations HENMT: Head: normal to inspection, No palpable skull fracture present, normocephalic, atraumatic and abrasion Ears: hearing grossly normal bilaterally and external ears normal Eyes: General: appearance normal, both eyes and all related structures Alignment and Position: alignment normal Periorbital: periorbital findings normal Eyelids: eyelids normal EOM: EOMs intact bilaterally Neck: Neck: normal visual inspection, full ROM, no lymphadenopathy, trachea midline and supple Chest: Chest palpation & inspection: normal inspection of the chest Resp: Effort & Inspection: normal respiratory effort Auscultation: clear to auscultation bilaterally Cardio: Palpation: normal PMI Rate: regular rate Rhythm: regular rhythm Heart sounds: S1 normal heart sound present and S2 normal heart sound present Peripheral pulses: Peripheral pulses 2+ throughout GI: Inspection: normal to inspection Auscultation: Hypoactive bowel sounds present Rectal Exam: deferred : General: Yes no CVA tenderness Back/Spine/Pelvis: Back: no CVA tenderness Skin: General skin exam: normal color Lesions: no lesions Rashes: no rashes Trauma: no lacerations or abrasions Wounds: no wounds Hair: normal Nails: normal Neuro: General: oriented to person, oriented to place, oriented to time and patient oriented x3 Cranial nerves: Yes Normal hearing present Cognition (Neuro): normal cognition Speech: normal speech Gait exam (Neuro): Normal gait present Motor exam (neuro): 5/5 motor strength present throughout Sensory Exam: normal sensation Extrem: General: normal to inspection Right upper extremity: normal to inspection and shoulder/upper arm Left upper extremity: normal to inspection and shoulder/upper arm Right lower extremity: normal to inspection Left lower extremity: normal to inspection Psych: Appearance: grossly normal Mental Status: mental status grossly normal Speech and movement: Normal speech and movement present Affect: normal affect Attitude: cooperative Thought process: Normal thought process present Thought content: Yes Normal thought content present Insight: Good insight present (Psych) Judgement: Good judgement present (Psych) H&P: Results Labs Labs: Short CBC 11/04/24 Range/Units 19:33 WBC 16.0 H (4.5-10.0) K/mm3 Hgb 15.5 (14.0-18.0) g/dL Hct 47.5 (42.0-52.0) % Plt Count 264 (150-375) k/mm3 BMP 11/04/24 19:33 Sodium 138 Potassium 4.6 Chloride 98 Carbon Dioxide 28 BUN 54 H D Creatinine 1.65 H Glucose 165 H Calcium 10.1 Liver Function 11/04/24 Range/Units 19:33 Total Bilirubin 4.0 H (0.2-1.3) mg/dL AST 30 (17-59) U/L ALT 9 (6-50) U/L Alkaline Phosphatase 79 (38-126) U/L Albumin 5.2 H (3.5-5.1) g/dL Urine 11/04/24 Range/Units 21:14 Urine Color Dark yellow (Yellow) Urine Appearance Cloudy H (Clear) Urine pH 5.0 (5.0-9.0) Ur Specific [place] 1.030 (1.001-1.035) Urine Protein 1+ H (Negative) mg/dL Urine Glucose (UA) Negative (Negative) mg/dL Imaging CT scan - abdomen: Radiologist's impression: CT-abdomen per radiology interpretation shows high-grade bowel obstruction with transition point right lower quadrant]. NG tube placed for decompression, case discussed with general surgeon who agrees to consult, discussed with hospitalist for admission, updated patient and family on plan Assessment and Plan Assessment and plan (1) Bowel obstruction: Code(s): K56.609 - Unspecified intestinal obstruction, unspecified as to partial versus complete obstruction Status: Acute Assessment and Plan: -CT-abdomen per radiology interpretation shows high-grade bowel obstruction with transition point right lower quadrant]. -NG tube placed for decompression -general surgeon consult -continue with IV fluid -continue with pain management -the patient has had multiple abdominal surgeries in the past -antinausea medication -his white count is elevated to 16.0 which could be reactive. (2) CRD (chronic renal disease), stage III: Code(s): N18.30 - Chronic kidney disease, stage 3 unspecified Status: Acute Assessment and Plan: -avoid nephrotoxic medication. -his creatinine is 1.65. The patient's baseline is anywhere from 1.2 to to 1.66. -his BUN is 54 with a baseline somewhere between 23 and 34 -. Continue with IV hydration. (3) Essential (primary) hypertension: Code(s): I10 - Essential (primary) hypertension Status: Acute Assessment and Plan: -the patient is NPO at this time. -amlodipine is on hold at this time. -p.r.n. hydralazine with parameters. -his current blood pressure is 141/90. (4) Hyperglycemia: Code(s): R73.9 - Hyperglycemia, unspecified Status: Acute Assessment and Plan: -his blood sugar is 165. -check A1c. -Accu-Cheks every 6 hours with sliding scale insulin. (5) Parkinson disease: Code(s): G20 - Parkinson's disease Status: Acute Assessment and Plan: -the patient's carbidopa levodopa is on hold at this time. -clonazepam is on hold at this time. May consider Valium. Quality VTE Prophylaxis VTE prophylaxis: mechanical ordered
[2024-11-05] MEDS: LACTATED RINGERS 1,000 ML 100 ML IV CONT (06:45)
[2024-11-05 07:09] LABS: Hemoglobin A1C 5.6 % (<5.7)
--- NOTE | 2024-11-05 07:32 | PM.IMPN ---
Progress Note: A&P Assessment and Plan (1) Bowel obstruction: Code(s): K56.609 - Unspecified intestinal obstruction, unspecified as to partial versus complete obstruction Status: Acute Assessment and Plan: History of multiple abdominal surgeries increasing risk of SBO Last colonoscopy > [address] abdomen/pelvis: SBO with transition point in the anterior abdomen Place NG tube, NG tube to low intermittent suction Gentle IV fluid resuscitation given the patient's NPO status Analgesics Morphine 2 mg IV q4h PRN P.r.n. Anti emetics, avoid Reglan Monitor I&Os, vital signs, neuro status and patient is a fall risk Monitor serum electrolytes and CBC General surgery consulted to further evaluate small bowel obstruction (2) CRD (chronic renal disease), stage III: Code(s): N18.30 - Chronic kidney disease, stage 3 unspecified Status: Acute Assessment and Plan: Chronic, baseline is anywhere from 1.2 to to 1.6 - BUN/Cr currently at baseline 58/1.49 on am labs -avoid nephrotoxic medication - renally dose medications - monitor I/O (3) Essential (primary) hypertension: Code(s): I10 - Essential (primary) hypertension Status: Acute Assessment and Plan: - Chronic - Amlodipine is on hold as patient is currently NPO, resume as appropriate - P.r.n. hydralazine Blood pressure reviewed and remains well controlled, continue to monitor (4) Hyperglycemia: Code(s): R73.9 - Hyperglycemia, unspecified Status: Acute Assessment and Plan: Glucose elevated on admission - A1c 5.6 - Accu-Cheks every 6 hours (5) Parkinson disease: Code(s): G20 - Parkinson's disease Status: Acute Assessment and Plan: - Continue sinemet TID and clonazepam 0.5 mg qHS Discussed with surgery and okay to continue these medications as prescribed. Clamp the NG tube for 30-45 minutes following medication administration prior to resuming NG suction. Time Spent With Patient Time with patient: 25 - 35 minutes Subjective Date/time seen: 11/05/24 07:32 Interval history: 74 year old male with past medical history of parkinson disease, stomach cancer, hypertension and multiple abdominal surgeries (prostatectomy, hernia repair x2, and stomach surgery) presents to the hospital for abdominal pain. Patient is pleasant sitting up comfortably in bed with family bedside. He states that since having the NG tube placed he has felt tremendously better denying any nausea/vomiting or abdominal pain at this time. He states that he is passing flattens but has not had a bowel movement in over 2 days. He has no other complaints denying chest pain, shortness a breath, palpitations. Review of Systems Review of Systems: All systems reviewed & are unremarkable except as noted in HPI and below Exam Narrative: AF HR 75 RR 16 SpO2 95 BP 141/90 General: male in no acute respiratory distress who is nontoxic appearing, sitting up in bed. HEENT: Normocephalic. Atraumatic. Extraocular movement intact. Sclera clear and anicteric. No facial asymmetry. Chest: Lungs are clear to auscultation bilaterally. No wheezes or crackles. CV: Heart was regular rate and rhythm. Abd: NG tube in place to low intermittent suction. Abdomen was soft. Nontender. Nondistended. Positive bowel sounds. Ext: No clubbing, cyanosis, or edema. DP pulses bilaterally. Neuro: Patient is alert and oriented x4. Speech is clear. Objective Data Vital Signs Vital Signs: Vital Signs - 24 hr 11/04/24 16:48 11/04/24 20:37 11/04/24 20:38 Temperature 98.6 F Pulse Rate 83 Respiratory Rate 16 Blood Pressure 107/71 135/88 Pulse Oximetry 100 100 100 Oxygen Delivery Room Air 11/04/24 20:47 11/04/24 21:08 11/04/24 21:15 Temperature Pulse Rate Respiratory Rate Blood Pressure Pulse Oximetry 97 96 96 Oxygen Delivery 11/04/24 21:16 11/04/24 22:06 11/05/24 01:12 Temperature Pulse Rate Respiratory Rate Blood Pressure 130/83 Pulse Oximetry 96 98 97 Oxygen Delivery 11/05/24 01:15 11/05/24 01:30 11/05/24 01:46 Temperature Pulse Rate Respiratory Rate Blood Pressure Pulse Oximetry 95 96 94 Oxygen Delivery 11/05/24 02:35 11/05/24 02:45 11/05/24 03:36 Temperature 98.0 F Pulse Rate 72 Respiratory Rate 18 Blood Pressure 157/93 H Pulse Oximetry 95 97 96 Oxygen Delivery 11/05/24 06:00 Temperature 98.2 F Pulse Rate 75 Respiratory Rate 16 Blood Pressure 141/90 H Pulse Oximetry 95 Oxygen Delivery Intake/Output Intake/Output: Intake & Output 09/18/25 09/19/25 09/20/25 09/21/25 23:59 23:59 23:59 23:59 Intake Total 1000 Balance 1000 Meds/Results Medications: Active Medications Generic Name Dose Route Start Last Admin Trade Name Freq PRN Reason Stop Dose Admin Dextrose 12.5 gm 11/05/24 05:54 Dextrose 50% 25 Gm/50 Ml Syringe IV PUSH PRN PRN Hypoglycemia Protocol Glucagon 1 mg 11/05/24 05:54 Glucagon For Inj 1 Mg Vial IM PRN PRN Hypoglycemia Protocol Glucose 15 gm 11/05/24 05:54 Glucose Oral Gel 15 Gm Of Glucse In 37.5 Gm Tube PO PRN PRN Hypoglycemia Protocol Hydralazine HCl 10 mg 11/05/24 06:00 Hydralazine Hcl 20 Mg/Ml Vial IV PUSH Q8H PRN Blood Pressure - High Dextrose 1,000 mls @ 100 mls/hr 11/05/24 05:54 Dextrose 5% 1,000 Ml IVPB PRN PRN Hypoglycemia Protocol Lactated Ringer's 1,000 mls @ 100 mls/hr 11/05/24 06:05 11/05/24 06:45 Lr - Lactated Ringers Iv IV CONT 100 mls/hr .Q10H PIERCE Administration Insulin Aspart 2 - 5 units 11/05/24 06:00 11/05/24 06:44 Insulin Aspart (*Bkc) 100 Units/Ml SUB-Q Not Given Q6HR [facility] Protocol Miscellaneous Information 1 each 11/05/24 06:10 11/05/24 06:45 Ciclopirox 8 % Solution- Nonformulary. Please Obtain A Home Supply Or Hold While Inpatient XX 12/05/24 06:09 Not Given CLARIFY [facility] Morphine Sulfate 2 mg 11/05/24 06:01 Morphine Sulfate (*Crx) 2 Mg/Ml Inj IV PUSH Q4H PRN Pain Rated 7-10 Non-Formulary Medication 1 applic 11/05/24 21:00 Ciclopirox TOPICAL 12/05/24 20:59 QHS [facility] Ondansetron HCl 4 mg 11/05/24 06:02 Ondansetron Inj 4 Mg/2 Ml Vial IV PUSH Q4H PRN Nausea And Vomiting Labs Labs: Laboratory Results - last 24 hr 11/04/24 11/04/24 11/05/24 19:33 21:14 06:20 WBC 16.0 H RBC 4.96 Hgb 15.5 Hct 47.5 MCV 95.8 MCH 31.3 MCHC 32.6 RDW 13.3 Plt Count 264 MPV 9.9 Immature Gran % (Auto) 0.3 Neut % (Auto) 86.6 H Lymph % (Auto) 3.4 L [place] % (Auto) 9.3 H Eos % (Auto) 0.1 Baso % (Auto) 0.3 Lymph # (Auto) 0.54 L [place] # (Auto) 1.5 H Eos # (Auto) 0.0 Baso # (Auto) 0.0 Abs Immat Gran (auto) 0.05 H Absolute Neuts (auto) 13.8 H Absolute Nucleated RBC 0.000 Nucleated RBC % 0.0 Sodium 138 Potassium 4.6 Chloride 98 Carbon Dioxide 28 Anion Gap 12 BUN 54 H D Creatinine 1.65 H Estim Creat Clear Calc 38 Estimated GFR 41 L Glucose 165 H POC Capillary Glucose Hemoglobin A1c 5.6 Calcium 10.1 Total Bilirubin 4.0 H AST 30 ALT 9 Alkaline Phosphatase 79 Total Protein 8.6 H Albumin 5.2 H Lipase 95 Urine Color Dark yellow Urine Appearance Cloudy H Urine pH 5.0 Ur Specific [place] 1.030 Urine Protein 1+ H Urine Glucose (UA) Negative Urine Ketones 1+ H Ur Blood (Man) Negative Urine Nitrate Negative Urine Bilirubin 2+ H Urine Urobilinogen 1.0 Add Ur Microanalysis Reviewed Leukocyte Esterase Rfl Trace H Urine RBC 0-2 Urine WBC 0-5 Ur Squamous Epith Cells None seen Urine Bacteria None seen Urine Casts >20 Urine Mucus Present 11/05/24 06:29 WBC RBC Hgb Hct MCV MCH MCHC RDW Plt Count MPV Immature Gran % (Auto) Neut % (Auto) Lymph % (Auto) [place] % (Auto) Eos % (Auto) Baso % (Auto) Lymph # (Auto) [place] # (Auto) Eos # (Auto) Baso # (Auto) Abs Immat Gran (auto) Absolute Neuts (auto) Absolute Nucleated RBC Nucleated RBC % Sodium Potassium Chloride Carbon Dioxide Anion Gap BUN Creatinine Estim Creat Clear Calc Estimated GFR Glucose POC Capillary Glucose 158 H Hemoglobin A1c Calcium Total Bilirubin AST ALT Alkaline Phosphatase Total Protein Albumin Lipase Urine Color Urine Appearance Urine pH Ur Specific [place] Urine Protein Urine Glucose (UA) Urine Ketones Ur Blood (Man) Urine Nitrate Urine Bilirubin Urine Urobilinogen Add Ur Microanalysis Leukocyte Esterase Rfl Urine RBC Urine WBC Ur Squamous Epith Cells Urine Bacteria Urine Casts Urine Mucus Quality VTE Prophylaxis VTE prophylaxis: mechanical ordered
[2024-11-05 07:48] LABS: Thyroid Stimulating Hormone Reflex 0.528 uIU/mL (0.465-4.68)
[2024-11-05 07:52] LABS: Alanine Aminotransferase 14 U/L (6-50); Albumin Level 4.7 g/dL (3.5-5.1); Alkaline Phosphatase 69 U/L (38-126); Anion Gap 12 mmol/L (4-12); Aspartate Amino Transferase 31 U/L (17-59); Bilirubin,Total 4.1 mg/dL (0.2-1.3); Blood Urea Nitrogen 58 mg/dL (9-20); Calcium 9.3 mg/dL (8.4-10.2); Carbon Dioxide 27 mmol/L (22-30); Chloride 96 mmol/L (98-107); Estimated CRCL calculation 42 ml/min; Estimated Glomerular Filt Rate 46; Glucose 163 mg/dL (65-110); Potassium 4.7 mmol/L (3.4-5.0); Sodium 135 mmol/L (137-145); Total Protein 7.4 g/dL (6.3-8.2)
[2024-11-05 07:58] LABS: Hematocrit 43.4 % (42.0-52.0); Hemoglobin 14.4 g/dL (14.0-18.0); Mean Corpuscular HGB Conc 33.2 g/dl (32-36); Mean Corpuscular Hemoglobin 31.7 pg (26-34); Mean Corpuscular Volume 95.6 fl (80-100); Platelet Count Result 235 k/mm3 (150-375); Red Blood Count 4.54 M/mm3 (4.6-6.20); White Blood Count 11.4 K/mm3 (4.5-10.0)
[2024-11-05] MEDS: CARBIDOPA/LEVODOPA 25/100 MG TABLET 2 TABLET PO ×2 (12:32→16:36)
--- NOTE | 2024-11-05 13:54 | PM.CNGS ---
Assessment and Plan Assessment and plan (1) Small bowel obstruction: Code(s): K56.609 - Unspecified intestinal obstruction, unspecified as to partial versus complete obstruction Status: Acute Assessment and Plan: Much improved with just overnight treatment of NG suction, fluid resuscitation, analgesics. I will go ahead and advance his NG tube to position it more appropriately in the stomach. Continue present treatment. If continues to improve, will probably order water-soluble small bowel series tomorrow. Hopefully this will resolve without surgery. (2) Parkinson disease: Qualifiers: Dyskinesia presence: unspecified whether dyskinesia Fluctuating manifestations: unspecified whether manifestations fluctuate Qualified Code(s): G20.A1 - Parkinson's disease without dyskinesia, without mention of fluctuations Code(s): G20 - Parkinson's disease Status: Chronic Assessment and Plan: Continue to take medications despite nasogastric tube. Discussed this with hospitalist earlier today. (3) Hx of malignant gastrointestinal stromal tumor (GIST): Code(s): Z85.09 - Personal history of malignant neoplasm of other digestive organs Status: Chronic Assessment and Plan: Removed 13 years ago. (4) Prostate cancer: Code(s): C61 - Malignant neoplasm of prostate Status: Chronic Assessment and Plan: Resection many years ago robotically (5) CRD (chronic renal disease), stage III: Qualifiers: Chronic kidney disease stage 3 subtype: unspecified whether 3a or 3b Qualified Code(s): N18.30 - Chronic kidney disease, stage 3 unspecified Code(s): N18.30 - Chronic kidney disease, stage 3 unspecified Status: Chronic Assessment and Plan: Monitor renal function and fluid status History of Present Illness Consult details Consult date: 11/05/24 Reason for consult: abdominal pain (Small-bowel obstruction) Requesting physician: Hattie Beach MD Narrative: Patient is a 74-year-old man whom I know from removal of a gastrointestinal stromal tumor in 2011. He also had an inguinal hernia repair that same year. He had a robotic prostatectomy in the past as well. He has never had a small-bowel obstruction. He was at home and comfortable when he started developing a burning pain across his lower abdomen. This pain was mild at 1st but then just continued to worsen. He had no nausea or vomiting. His last bowel movement was 11/01/2024. He eventually came to the emergency room. His vital signs were normal and his exam showed lower abdominal tenderness. He had a CT scan of the abdomen pelvis that showed a right lower quadrant transition point and high-grade small-bowel obstruction. A nasogastric tube was passed and he has received fluids and analgesics since being in the emergency room last night. Today he feels much better, in fact is pain-free. He denies ever experiencing anything such as this before. He also denies having eaten anything unusual or having done anything unusual last week that may possibly have led to this. He is seen now in consultation for small-bowel obstruction. Review of Systems Review of Systems: All systems reviewed & are unremarkable except as noted in HPI and below (HPI) [facility] Past Medical History Medical History Excessive daytime sleepiness Snoring BMI 28.0-28.9,adult Hyperglycemia GIST (gastrointestinal stromal tumor), malignant Anemia, unspecified Allergic rhinitis, unspecified Adult general medical exam REM behavioral disorder Right hand weakness Parkinson disease History of stomach cancer History of blood transfusion Essential (primary) hypertension Pure hypercholesterolemia Surgical History Surgical History History of lumbar laminectomy Hx of prostatectomy 12/2021 Hx of cataract surgery H/O inguinal hernia repair x2 History of surgery for malignant neoplasm of the stomach Family History Family History Mother Hypertension Father Family history of malignant neoplasm of thyroid Sibling Cancer Social History Social History Social History: The patient is retired pharmacist. He lives with his and he has 4 children. Code status full code. Years smoked: 5 Smoking status: Never smoker Second hand tobacco smoke exposure: No Smoking end date: 02/16/04 Additional smoking assessment comments: STATES SMOKED WHEN BOWLING 1PK/EVERY COUPLE OF MONTHS/5 YRS Alcohol intake: current Drinks per week: 7 Substance use: current Substance use type: marijuana Other substance usage details: smoke once a week, gummies recreationally few times a week Last use: 10 days ago Do You Feel Safe in your Home?: Yes Lack of Transportation: No Lack of Food: Never True Current Housing: I Have Housing Concerned About Future Housing: No Difficulty Paying Gas/Electric Bills: No Difficulty Paying for Meds: No Currently Unemployed: No Education: Master's Degree or Higher Difficulty w/ Childcare or Family Care: No Living arrangements: with family Additional living arrangements comments: Pt's 97 y/o mother moved in and is stressing him out. 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 Gender identity (if verbalized by the patient): Male Spiritual care concerns: No Meds Home Medications and Allergies Home Medications ?Medication ?Instructions ?Recorded ?Confirmed ?Type amlodipine 5 mg tablet 5 mg PO DAILY #90 tabs 12/19/23 11/05/24 Rx ciclopirox 8 % topical solution 1 applic topical QHS 4 weeks #6.6 06/01/24 11/05/24 Rx mL carbidopa 25 mg-levodopa 100 mg 2 tablet PO TID #180 tabs 07/24/24 11/05/24 Rx tablet (Sinemet) clonazepam 0.5 mg tablet (Klonopin) 0.5 mg PO QHS #90 tabs 07/24/24 11/05/24 Rx gabapentin 300 mg capsule 300 mg PO TID #90 caps 07/24/24 11/05/24 Rx melatonin 5 mg capsule 5 mg PO .HS 08/30/24 11/05/24 History diclofenac sodium 75 mg 75 mg PO BID #180 tabs 09/26/24 11/05/24 Rx tablet,delayed release Allergies Allergy/AdvReac Type Severity Reaction Status Date / Time No Known Allergies Allergy Verified 11/04/24 16:51 Vital Signs Vital Signs - 24 hr 11/04/24 16:48 11/04/24 20:37 11/04/24 20:38 Temperature 37.0 C Pulse Rate 83 Respiratory Rate 16 Blood Pressure 107/71 135/88 Pulse Oximetry 100 100 100 Oxygen Delivery Room Air 11/04/24 20:47 11/04/24 21:08 11/04/24 21:15 Temperature Pulse Rate Respiratory Rate Blood Pressure Pulse Oximetry 97 96 96 Oxygen Delivery 11/04/24 21:16 11/04/24 22:06 11/05/24 01:12 Temperature Pulse Rate Respiratory Rate Blood Pressure 130/83 Pulse Oximetry 96 98 97 Oxygen Delivery 11/05/24 01:15 11/05/24 01:30 11/05/24 01:46 Temperature Pulse Rate Respiratory Rate Blood Pressure Pulse Oximetry 95 96 94 Oxygen Delivery 11/05/24 02:35 11/05/24 02:45 11/05/24 03:36 Temperature 36.7 C Pulse Rate 72 Respiratory Rate 18 Blood Pressure 157/93 H Pulse Oximetry 95 97 96 Oxygen Delivery 11/05/24 06:00 11/05/24 08:00 11/05/24 08:19 Temperature 36.8 C Pulse Rate 75 Respiratory Rate 16 Blood Pressure 141/90 H Pulse Oximetry 95 92 Oxygen Delivery Room Air Room Air Exam Const: General: cooperative, comfortable, alert, awake and thin; No ill appearing Orientation/consciousness: patient oriented x3 and No confusion HENMT: Head: normocephalic and atraumatic Mouth: Yes Normal oral and palatal mucosa present Eyes: Conjunctivae: conjunctivae normal Pupils: Equal, round and reactive pupils present EOM: EOMs intact bilaterally Neck: Neck: normal visual inspection, no lymphadenopathy and nontender Resp: Effort & Inspection: normal respiratory effort Auscultation: clear to auscultation bilaterally Cardio: Rate: regular rate Rhythm: regular rhythm Heart sounds: no gallops, no murmurs and no rubs GI: Inspection: no abdominal wall ecchymosis, non-distended, scar (Midline abdominal scar from removal GIST) and no visible herniation GI Palp: Yes Soft to palpation, No Tenderness to palpation present (GI), No Hepatomegaly present, No Splenomegaly present, No Hernia present and No Palpable mass present Auscultation: absent bowel sounds Skin: Lesions: no lesions Rashes: no rashes Neuro: General: no focal motor deficits and CN's II-XI intact bilaterally Cranial nerves: Yes Equal, round and reactive pupils present, Yes Bilaterally intact EOM present, Yes facial symmetry and Yes Midline tongue present Speech: normal speech Motor exam (neuro): 5/5 motor strength present throughout and Motor abnormalities not present Extrem: General: no clubbing, cyanosis or edema and edema Psych: Affect: normal affect Thought process: Normal thought process present Insight: Good insight present (Psych) Results Labs 11/05/24 06:21 11/05/24 06:21 Labs: Abnormal lab results 11/04/24 11/04/24 11/05/24 Range/Units 19:33 21:14 06:21 WBC 16.0 H 11.4 H (4.5-10.0) K/mm3 RBC 4.54 L (4.6-6.20) M/mm3 MPV 10.5 H (7.4-10.4) fl Neut % (Auto) 86.6 H (45.5-73.1) % Lymph % (Auto) 3.4 L (18.3-44.2) % [place] % (Auto) 9.3 H (2.6-8.5) % Lymph # (Auto) 0.54 L (0.9-3.2) K/mm3 [place] # (Auto) 1.5 H (0.1-0.6) K/mm3 Abs Immat Gran (auto) 0.05 H (0.00-0.031) K/mm3 Absolute Neuts (auto) 13.8 H (1.3-6.7) K/mm3 Sodium 135 L (137-145) mmol/L Chloride 96 L (98-107) mmol/L BUN 54 H D 58 H (9-20) mg/dL Creatinine 1.65 H 1.49 H (0.7-1.3) mg/dL Estimated GFR 41 L 46 L (59 - ) Glucose 165 H 163 H (65-110) mg/dL POC Capillary Glucose (65-105) mg/dl Total Bilirubin 4.0 H 4.1 H (0.2-1.3) mg/dL Total Protein 8.6 H (6.3-8.2) g/dL Albumin 5.2 H (3.5-5.1) g/dL Urine Appearance Cloudy H (Clear) Urine Protein 1+ H (Negative) mg/dL Urine Ketones 1+ H (Negative) mg/dL Urine Bilirubin 2+ H (Negative) Leukocyte Esterase Rfl Trace H (Negative) KAM/UL 11/05/24 11/05/24 Range/Units 06:29 11:34 WBC (4.5-10.0) K/mm3 RBC (4.6-6.20) M/mm3 MPV (7.4-10.4) fl Neut % (Auto) (45.5-73.1) % Lymph % (Auto) (18.3-44.2) % [place] % (Auto) (2.6-8.5) % Lymph # (Auto) (0.9-3.2) K/mm3 [place] # (Auto) (0.1-0.6) K/mm3 Abs Immat Gran (auto) (0.00-0.031) K/mm3 Absolute Neuts (auto) (1.3-6.7) K/mm3 Sodium (137-145) mmol/L Chloride (98-107) mmol/L BUN (9-20) mg/dL Creatinine (0.7-1.3) mg/dL Estimated GFR (59 - ) Glucose (65-110) mg/dL POC Capillary Glucose 158 H 120 H (65-105) mg/dl Total Bilirubin (0.2-1.3) mg/dL Total Protein (6.3-8.2) g/dL Albumin (3.5-5.1) g/dL Urine Appearance (Clear) Urine Protein (Negative) mg/dL Urine Ketones (Negative) mg/dL Urine Bilirubin (Negative) Leukocyte Esterase Rfl (Negative) KAM/UL Diabetes panel 11/04/24 11/05/24 11/05/24 Range/Units 19:33 06:20 06:21 Sodium 138 135 L (137-145) mmol/L Potassium 4.6 4.7 (3.4-5.0) mmol/L Chloride 98 96 L (98-107) mmol/L Carbon Dioxide 28 27 (22-30) mmol/L BUN 54 H D 58 H (9-20) mg/dL Creatinine 1.65 H 1.49 H (0.7-1.3) mg/dL Glucose 165 H 163 H (65-110) mg/dL Hemoglobin A1c 5.6 (<5.7) % Calcium 10.1 9.3 (8.4-10.2) mg/dL AST 30 31 (17-59) U/L ALT 9 14 (6-50) U/L Alkaline Phosphatase 79 69 (38-126) U/L Total Protein 8.6 H 7.4 (6.3-8.2) g/dL Albumin 5.2 H 4.7 (3.5-5.1) g/dL Calcium panel 11/04/24 11/05/24 Range/Units 19:33 06:21 Calcium 10.1 9.3 (8.4-10.2) mg/dL Albumin 5.2 H 4.7 (3.5-5.1) g/dL Pituitary panel 11/04/24 11/05/24 Range/Units 19:33 06:21 Sodium 138 135 L (137-145) mmol/L Potassium 4.6 4.7 (3.4-5.0) mmol/L Chloride 98 96 L (98-107) mmol/L Carbon Dioxide 28 27 (22-30) mmol/L BUN 54 H D 58 H (9-20) mg/dL Creatinine 1.65 H 1.49 H (0.7-1.3) mg/dL Glucose 165 H 163 H (65-110) mg/dL Calcium 10.1 9.3 (8.4-10.2) mg/dL Adrenal panel 11/04/24 11/05/24 Range/Units 19:33 06:21 Sodium 138 135 L (137-145) mmol/L Potassium 4.6 4.7 (3.4-5.0) mmol/L Chloride 98 96 L (98-107) mmol/L Carbon Dioxide 28 27 (22-30) mmol/L BUN 54 H D 58 H (9-20) mg/dL Creatinine 1.65 H 1.49 H (0.7-1.3) mg/dL Glucose 165 H 163 H (65-110) mg/dL Calcium 10.1 9.3 (8.4-10.2) mg/dL Total Bilirubin 4.0 H 4.1 H (0.2-1.3) mg/dL AST 30 31 (17-59) U/L ALT 9 14 (6-50) U/L Alkaline Phosphatase 79 69 (38-126) U/L Total Protein 8.6 H 7.4 (6.3-8.2) g/dL Albumin 5.2 H 4.7 (3.5-5.1) g/dL All other labs normal. Imaging Abdominal x-ray: report reviewed (Same) and image reviewed (NG tube needs to be advanced) Abdomen CT scan report/results: report reviewed (IMPRESSION: 1. Small bowel obstruction with transition point in the anterior abdomen.) and image reviewed (Small-bowel obstruction) CT scan - pelvis: report reviewed and image reviewed
[2024-11-05] MEDS: SODIUM CHLORIDE 0.9% IV 1,000 ML 80 ML IV CONT (14:51)
[2024-11-05] MEDS: FAMOTIDINE 20 MG/2 ML VIAL IV PUSH (21:31)
[2024-11-05] MEDS: clonazePAM (*CRX) 0.5 MG TABLET PO (22:32)
[2024-11-06] MEDS: SODIUM CHLORIDE 0.9% IV 1,000 ML 80 ML IV CONT (02:50)
[2024-11-06 06:00] VITALS: BP 152/91; PULSE 64; RESP 18; TEMP 36.3; O2SAT 96
[2024-11-06 06:42] LABS: Hematocrit 40.3 % (42.0-52.0); Hemoglobin 12.9 g/dL (14.0-18.0); Mean Corpuscular HGB Conc 32.0 g/dl (32-36); Mean Corpuscular Hemoglobin 31.2 pg (26-34); Mean Corpuscular Volume 97.6 fl (80-100); Platelet Count Result 203 k/mm3 (150-375); Red Blood Count 4.13 M/mm3 (4.6-6.20); White Blood Count 6.5 K/mm3 (4.5-10.0)
[2024-11-06 07:12] LABS: Alanine Aminotransferase 14 U/L (6-50); Albumin Level 3.9 g/dL (3.5-5.1); Alkaline Phosphatase 54 U/L (38-126); Anion Gap 4 mmol/L (4-12); Aspartate Amino Transferase 28 U/L (17-59); Bilirubin,Total 3.9 mg/dL (0.2-1.3); Blood Urea Nitrogen 33 mg/dL (9-20); Calcium 8.4 mg/dL (8.4-10.2); Carbon Dioxide 29 mmol/L (22-30); Chloride 102 mmol/L (98-107); Estimated CRCL calculation 54 ml/min; Estimated Glomerular Filt Rate > 60; Glucose 113 mg/dL (65-110); Potassium 4.1 mmol/L (3.4-5.0); Sodium 135 mmol/L (137-145); Total Protein 6.4 g/dL (6.3-8.2)
--- NOTE | 2024-11-06 07:59 | PM.IMPN ---
Progress Note: A&P Assessment and Plan (1) Bowel obstruction: Code(s): K56.609 - Unspecified intestinal obstruction, unspecified as to partial versus complete obstruction Status: Acute Assessment and Plan: History of multiple abdominal surgeries increasing risk of SBO Last colonoscopy > [address] abdomen/pelvis: SBO with transition point in the anterior abdomen Place NG tube, NG tube to low intermittent suction. Currently clamped at time of assessment. Gentle IV fluid resuscitation given the patient's NPO status Analgesics Morphine 2 mg IV q4h PRN P.r.n. Anti emetics Monitor I&Os, vital signs, neuro status and patient is a fall risk Monitor serum electrolytes and CBC General surgery consulted to further evaluate small bowel obstruction Repeat KUB on 11/06: NG in stomach, no dilated loops of gas filled bowel to suggest obstruction Plan for small bowel follow through, awaiting results (2) CRD (chronic renal disease), stage III: Qualifiers: Chronic kidney disease stage 3 subtype: unspecified whether 3a or 3b Qualified Code(s): N18.30 - Chronic kidney disease, stage 3 unspecified Code(s): N18.30 - Chronic kidney disease, stage 3 unspecified Status: Chronic Assessment and Plan: Chronic, baseline is anywhere from 1.2 to to 1.6 - BUN/Cr currently at baseline - avoid nephrotoxic medication - renally dose medications - monitor I/O (3) Essential (primary) hypertension: Code(s): I10 - Essential (primary) hypertension Status: Acute Assessment and Plan: - Chronic - Amlodipine is on hold as patient is currently NPO, resume as appropriate - P.r.n. hydralazine Blood pressure reviewed and remains well controlled, continue to monitor (4) Hyperglycemia: Code(s): R73.9 - Hyperglycemia, unspecified Status: Acute Assessment and Plan: Glucose elevated on admission - A1c 5.6 - Accu-Cheks every 6 hours (5) Parkinson disease: Qualifiers: Dyskinesia presence: unspecified whether dyskinesia Fluctuating manifestations: unspecified whether manifestations fluctuate Qualified Code(s): G20.A1 - Parkinson's disease without dyskinesia, without mention of fluctuations Code(s): G20 - Parkinson's disease Status: Chronic Assessment and Plan: - Continue sinemet TID and clonazepam 0.5 mg qHS Previously discussed with surgery and okay to continue these medications as prescribed. Clamp the NG tube for 30-45 minutes following medication administration prior to resuming NG suction. Time Spent With Patient Time with patient: 25 - 35 minutes Subjective Date/time seen: 11/06/24 07:59 Interval history: 74 year old male with past medical history of parkinson disease, stomach cancer, hypertension and multiple abdominal surgeries (prostatectomy, hernia repair x2, and stomach surgery) presents to the hospital for abdominal pain. Patient is pleasant sitting up comfortably on the side of the bed with family at bedside. He has no complaints at this time denying chest pain, shortness a breath, palpitations, nausea/vomiting and abdominal pain. Patient's NG tube is currently clamped. He states he continues to pass flatus but has not had a bowel movement. Review of Systems Review of Systems: All systems reviewed & are unremarkable except as noted in HPI and below Exam Narrative: AF HR 64 RR 18 Spo2 96 BP 152/91 General: male in no acute respiratory distress who is nontoxic appearing, sitting up on side of bed. HEENT: Normocephalic. Atraumatic. Extraocular movement intact. Sclera clear and anicteric. No facial asymmetry. Chest: Lungs are clear to auscultation bilaterally. No wheezes or crackles. CV: Heart was regular rate and rhythm. Abd: NG tube in place, clamped. Abdomen was soft. Nontender. Nondistended. Positive bowel sounds. Objective Data Vital Signs Vital Signs: Vital Signs - 24 hr 11/05/24 08:00 11/05/24 08:19 11/05/24 14:00 Temperature 98.5 F Pulse Rate 66 Respiratory Rate 18 Blood Pressure 145/81 H Pulse Oximetry 92 98 Oxygen Delivery Room Air Room Air 11/05/24 21:23 11/05/24 21:31 11/05/24 22:00 Temperature 97.9 F Pulse Rate 81 Respiratory Rate 18 Blood Pressure 132/80 Pulse Oximetry 97 97 Oxygen Delivery Room Air Room Air Intake/Output Intake/Output: Intake & Output 11/03/24 11/04/24 11/05/24 11/06/24 23:59 23:59 23:59 23:59 Intake Total 1000 0 958.7 Output Total 700 300 Balance 1000 -700 658.7 Meds/Results Medications: Active Medications Generic Name Dose Route Start Last Admin Trade Name Freq PRN Reason Stop Dose Admin Carbidopa/Levodopa 2 tablet 11/05/24 12:00 11/05/24 16:36 Carbidopa/Levodopa 25/100 Mg Tablet PO 2 tablet TIDWM PIERCE Administration Clonazepam 0.5 mg 11/05/24 21:00 11/05/24 22:32 Clonazepam (*Crx) 0.5 Mg Tablet PO 0.5 mg QHS PIERCE Administration Dextrose 12.5 gm 11/05/24 05:54 Dextrose 50% 25 Gm/50 Ml Syringe IV PUSH PRN PRN Hypoglycemia Protocol Famotidine 20 mg 11/05/24 21:00 11/05/24 21:31 Famotidine 20 Mg/2 Ml Vial IV PUSH 20 mg Q12HR PIERCE Administration Glucagon 1 mg 11/05/24 05:54 Glucagon For Inj 1 Mg Vial IM PRN PRN Hypoglycemia Protocol Glucose 15 gm 11/05/24 05:54 Glucose Oral Gel 15 Gm Of Glucse In 37.5 Gm Tube PO PRN PRN Hypoglycemia Protocol Hydralazine HCl 10 mg 11/05/24 06:00 Hydralazine Hcl 20 Mg/Ml Vial IV PUSH Q8H PRN Blood Pressure - High Dextrose 1,000 mls @ 100 mls/hr 11/05/24 05:54 Dextrose 5% 1,000 Ml IVPB PRN PRN Hypoglycemia Protocol Sodium Chloride 1,000 mls @ 80 mls/hr 11/05/24 14:15 11/06/24 02:50 Normal Saline Iv IV CONT 80 mls/hr .[id number] PIERCE Administration Miscellaneous Information 1 each 11/05/24 06:10 11/05/24 06:45 Ciclopirox 8 % Solution- Nonformulary. Please Obtain A Home Supply Or Hold While Inpatient XX 12/05/24 06:09 Not Given CLARIFY PIERCE Morphine Sulfate 2 mg 11/05/24 06:01 Morphine Sulfate (*Crx) 2 Mg/Ml Inj IV PUSH Q4H PRN Pain Rated 7-10 Ondansetron HCl 4 mg 11/05/24 06:02 Ondansetron Inj 4 Mg/2 Ml Vial IV PUSH Q4H PRN Nausea And Vomiting Radiology Results: ITS Impressions Abdomen/Pelvis CT 11/05/24 09:06 IMPRESSION: 1. Small bowel obstruction with transition point in the anterior abdomen. Labs Labs: Laboratory Results - last 24 hr 11/05/24 11/05/24 11/05/24 06:21 11:34 18:07 WBC 11.4 H RBC 4.54 L Hgb 14.4 Hct 43.4 MCV 95.6 MCH 31.7 MCHC 33.2 RDW 13.3 Plt Count 235 MPV 10.5 H Sodium Potassium Chloride Carbon Dioxide Anion Gap BUN Creatinine Estim Creat Clear Calc Estimated GFR Glucose POC Capillary Glucose 120 H 115 H Calcium Total Bilirubin AST ALT Alkaline Phosphatase Total Protein Albumin 11/05/24 11/06/24 11/06/24 20:57 01:26 06:02 WBC 6.5 RBC 4.13 L Hgb 12.9 L Hct 40.3 L MCV 97.6 MCH 31.2 MCHC 32.0 RDW 13.0 Plt Count 203 MPV 10.5 H Sodium 135 L Potassium 4.1 Chloride 102 Carbon Dioxide 29 Anion Gap 4 BUN 33 H D Creatinine 1.13 Estim Creat Clear Calc 54 Estimated GFR > 60 Glucose 113 H POC Capillary Glucose 118 H 112 H Calcium 8.4 Total Bilirubin 3.9 H AST 28 ALT 14 Alkaline Phosphatase 54 Total Protein 6.4 Albumin 3.9 Quality VTE Prophylaxis VTE prophylaxis: mechanical ordered
[2024-11-06] MEDS: CARBIDOPA/LEVODOPA 25/100 MG TABLET 2 TABLET PO ×3 (08:56→16:31)
[2024-11-06] MEDS: FAMOTIDINE 20 MG/2 ML VIAL IV PUSH (08:56)
--- NOTE | 2024-11-06 10:50 | PC.NURSE ---
to radiology per stretcher
--- NOTE | 2024-11-06 11:50 | PC.NURSE ---
pt returned from radiology per aarti
--- NOTE | 2024-11-06 12:22 | PM.PNGS ---
Progress Note: A&P Assessment and Plan (1) Small bowel obstruction: Code(s): K56.609 - Unspecified intestinal obstruction, unspecified as to partial versus complete obstruction Status: Acute Assessment and Plan: Patient states he feels the same as yesterday. Denies any abdominal pain. Minimal NG output. Hypoactive bowel sounds. Still no BM. Water-soluble small bowel series ordered for today. We will follow up for results. (2) Parkinson disease: Qualifiers: Dyskinesia presence: unspecified whether dyskinesia Fluctuating manifestations: unspecified whether manifestations fluctuate Qualified Code(s): G20.A1 - Parkinson's disease without dyskinesia, without mention of fluctuations Code(s): G20 - Parkinson's disease Status: Chronic Assessment and Plan: Continue to take medications despite nasogastric tube. Discussed this with hospitalist earlier today. (3) Hx of malignant gastrointestinal stromal tumor (GIST): Code(s): Z85.09 - Personal history of malignant neoplasm of other digestive organs Status: Chronic Assessment and Plan: Removed 13 years ago. (4) Prostate cancer: Code(s): C61 - Malignant neoplasm of prostate Status: Chronic Assessment and Plan: Resection many years ago robotically (5) CRD (chronic renal disease), stage III: Qualifiers: Chronic kidney disease stage 3 subtype: unspecified whether 3a or 3b Qualified Code(s): N18.30 - Chronic kidney disease, stage 3 unspecified Code(s): N18.30 - Chronic kidney disease, stage 3 unspecified Status: Chronic Assessment and Plan: Monitor renal function and fluid status Plan Discussed patient's case and plan of care with Dr. Perez. Subjective Subjective Date/Time Seen: 11/06/24 12:22 Patient reports: no new complaints and no bowel movement Interval history: Patient denies any abdominal pain. No nausea or vomiting. Minimal output from NG. Labs stable. Exam GI: Inspection: non-distended GI Palp: Yes Soft to palpation, No Tenderness to palpation present (GI) and No Guarding due to palpation present (GI) Auscultation: abnormal bowel sounds (hypoactive) Objective Data Vital Signs Vital Signs: Vital Signs - 24 hr 11/05/24 14:00 11/05/24 21:23 11/05/24 21:31 Temperature 98.5 F Pulse Rate 66 Respiratory Rate 18 Blood Pressure 145/81 H Pulse Oximetry 98 97 Oxygen Delivery Room Air Room Air 11/05/24 22:00 11/06/24 06:00 11/06/24 08:00 Temperature 97.9 F 97.3 F L Pulse Rate 81 64 Respiratory Rate 18 18 Blood Pressure 132/80 152/91 H Pulse Oximetry 97 96 Oxygen Delivery Room Air Intake/Output Intake/Output: Intake & Output 11/03/24 11/04/24 11/05/24 11/06/24 23:59 23:59 23:59 23:59 Intake Total 1000 0 958.7 Output Total 700 600 Balance 1000 -700 358.7 Meds/Results Medications: Active Medications Generic Name Dose Route Start Last Admin Trade Name Freq PRN Reason Stop Dose Admin Carbidopa/Levodopa 2 tablet 11/05/24 12:00 11/06/24 12:12 Carbidopa/Levodopa 25/100 Mg Tablet PO 2 tablet TIDWM PIERCE Administration Clonazepam 0.5 mg 11/05/24 21:00 11/05/24 22:32 Clonazepam (*Crx) 0.5 Mg Tablet PO 0.5 mg QHS PIERCE Administration Dextrose 12.5 gm 11/05/24 05:54 Dextrose 50% 25 Gm/50 Ml Syringe IV PUSH PRN PRN Hypoglycemia Protocol Famotidine 20 mg 11/05/24 21:00 11/06/24 08:56 Famotidine 20 Mg/2 Ml Vial IV PUSH 20 mg Q12HR PIERCE Administration Glucagon 1 mg 11/05/24 05:54 Glucagon For Inj 1 Mg Vial IM PRN PRN Hypoglycemia Protocol Glucose 15 gm 11/05/24 05:54 Glucose Oral Gel 15 Gm Of Glucse In 37.5 Gm Tube PO PRN PRN Hypoglycemia Protocol Hydralazine HCl 10 mg 11/05/24 06:00 Hydralazine Hcl 20 Mg/Ml Vial IV PUSH Q8H PRN Blood Pressure - High Dextrose 1,000 mls @ 100 mls/hr 11/05/24 05:54 Dextrose 5% 1,000 Ml IVPB PRN PRN Hypoglycemia Protocol Sodium Chloride 1,000 mls @ 80 mls/hr 11/05/24 14:15 11/06/24 02:50 Normal Saline Iv IV CONT 80 mls/hr .[id number] PIERCE Administration Miscellaneous Information 1 each 11/05/24 06:10 11/06/24 11:45 Ciclopirox 8 % Solution- Nonformulary. Please Obtain A Home Supply Or Hold While Inpatient XX 12/05/24 06:09 Not Given CLARIFY PIERCE Morphine Sulfate 2 mg 11/06/24 10:27 Morphine Sulfate (*Crx) 4 Mg/Ml Inj IV PUSH Q4H PRN Pain Rated 7-10 Ondansetron HCl 4 mg 11/05/24 06:02 Ondansetron Inj 4 Mg/2 Ml Vial IV PUSH Q4H PRN Nausea And Vomiting Radiology Results: ITS Impressions Abdomen/Pelvis CT 11/05/24 09:06 IMPRESSION: 1. Small bowel obstruction with transition point in the anterior abdomen. Abdomen X-Ray 11/06/24 08:52 IMPRESSION: 1. Nasogastric tube in stomach. No dilated loops of gas-filled bowel to suggest obstruction. Small Bowel X-Ray 11/06/24 12:18 IMPRESSION: 1. Normal small bowel follow-through with normal transit time of 30 minutes and no dilated bowel to suggest obstruction. Labs Labs: Laboratory Results - last 24 hr 11/05/24 11/05/24 11/06/24 18:07 20:57 01:26 WBC RBC Hgb Hct MCV MCH MCHC RDW Plt Count MPV Sodium Potassium Chloride Carbon Dioxide Anion Gap BUN Creatinine Estim Creat Clear Calc Estimated GFR Glucose POC Capillary Glucose 115 H 118 H 112 H Calcium Total Bilirubin AST ALT Alkaline Phosphatase Total Protein Albumin 11/06/24 06:02 WBC 6.5 RBC 4.13 L Hgb 12.9 L Hct 40.3 L MCV 97.6 MCH 31.2 MCHC 32.0 RDW 13.0 Plt Count 203 MPV 10.5 H Sodium 135 L Potassium 4.1 Chloride 102 Carbon Dioxide 29 Anion Gap 4 BUN 33 H D Creatinine 1.13 Estim Creat Clear Calc 54 Estimated GFR > 60 Glucose 113 H POC Capillary Glucose Calcium 8.4 Total Bilirubin 3.9 H AST 28 ALT 14 Alkaline Phosphatase 54 Total Protein 6.4 Albumin 3.9
[2024-11-06 14:00] VITALS: BP 158/92; PULSE 65; RESP 16; TEMP 36.1; O2SAT 98
[2024-11-06] MEDS: DICLOFENAC SOD 75 MG TABLET.EC PO (16:30)
[2024-11-06] MEDS: GABAPENTIN 300 MG CAPSULE PO (16:30)
[2024-11-06 21:44] VITALS: BP 145/82; PULSE 67; RESP 16; TEMP 36.6; O2SAT 99
[2024-11-06] MEDS: FAMOTIDINE 20 MG TABLET PO (21:56)
[2024-11-06] MEDS: clonazePAM (*CRX) 0.5 MG TABLET PO (21:56)
[2024-11-06] MEDS: MELATONIN 5 MG TABLET PO (21:57)
[2024-11-07 04:34] VITALS: BP 162/88; PULSE 59; RESP 16; TEMP 36.7; O2SAT 96
[2024-11-07 06:08] LABS: Hematocrit 39.5 % (42.0-52.0); Hemoglobin 12.7 g/dL (14.0-18.0); Mean Corpuscular HGB Conc 32.2 g/dl (32-36); Mean Corpuscular Hemoglobin 31.4 pg (26-34); Mean Corpuscular Volume 97.5 fl (80-100); Platelet Count Result 212 k/mm3 (150-375); Red Blood Count 4.05 M/mm3 (4.6-6.20); White Blood Count 4.7 K/mm3 (4.5-10.0)
[2024-11-07 07:09] LABS: Alanine Aminotransferase 12 U/L (6-50); Albumin Level 3.9 g/dL (3.5-5.1); Alkaline Phosphatase 56 U/L (38-126); Anion Gap 5 mmol/L (4-12); Aspartate Amino Transferase 25 U/L (17-59); Bilirubin,Total 3.2 mg/dL (0.2-1.3); Blood Urea Nitrogen 25 mg/dL (9-20); Calcium 8.3 mg/dL (8.4-10.2); Carbon Dioxide 29 mmol/L (22-30); Chloride 101 mmol/L (98-107); Estimated CRCL calculation 56 ml/min; Estimated Glomerular Filt Rate > 60; Glucose 106 mg/dL (65-110); Potassium 3.9 mmol/L (3.4-5.0); Sodium 135 mmol/L (137-145); Total Protein 6.2 g/dL (6.3-8.2)
[2024-11-07] MEDS: GABAPENTIN 300 MG CAPSULE PO ×2 (09:12→12:29)
[2024-11-07] MEDS: FAMOTIDINE 20 MG TABLET PO (09:13)
[2024-11-07] MEDS: CARBIDOPA/LEVODOPA 25/100 MG TABLET 2 TABLET PO ×2 (09:13→12:29)
[2024-11-07] MEDS: DICLOFENAC SOD 75 MG TABLET.EC PO (09:13)
[2024-11-07 09:16] VITALS: BP 124/73; PULSE 69
--- NOTE | 2024-11-07 09:56 | PM.PNGS ---
Progress Note: A&P Assessment and Plan (1) Small bowel obstruction: Code(s): K56.609 - Unspecified intestinal obstruction, unspecified as to partial versus complete obstruction Status: Acute Assessment and Plan: Small bowel series yesterday was normal. He has had several bowel movements since then. He has been tolerating full liquids without difficulty. I will advance him to a low-fiber diet. He can be discharged from a surgical standpoint. He can resume his normal usual diet at home. No surgical follow-up is needed. Subjective Subjective Date/Time Seen: 11/07/24 09:56 Patient reports: no new complaints, pain is less, tolerating liquids well, bowel movement and afebrile Review of Systems Review of Systems: All systems reviewed & are unremarkable except as noted in HPI and below (HPI) Exam Const: General: comfortable and no acute distress Orientation/consciousness: patient oriented x3 GI: Inspection: non-distended and scaphoid GI Palp: Yes Soft to palpation, No Tenderness to palpation present (GI), No Guarding due to palpation present (GI) and No Rebound tenderness present Neuro: General: patient oriented x3 and no focal motor deficits Extrem: General: no calf tenderness and no edema Psych: Affect: normal affect Insight: Good insight present (Psych) Judgement: Good judgement present (Psych) Objective Data Vital Signs Vital Signs: Vital Signs - 24 hr 11/06/24 14:00 11/06/24 21:44 11/06/24 22:00 Temperature 36.1 C L 36.6 C Pulse Rate 65 67 Respiratory Rate 16 16 Blood Pressure 158/92 H 145/82 H Pulse Oximetry 98 99 Oxygen Delivery Room Air 11/07/24 04:34 11/07/24 09:16 Temperature 36.7 C Pulse Rate 59 L 69 Respiratory Rate 16 Blood Pressure 162/88 H 124/73 Pulse Oximetry 96 Oxygen Delivery Intake/Output Intake/Output: Intake & Output 11/04/24 11/05/24 11/06/24 11/07/24 23:59 23:59 23:59 23:59 Intake Total 1000 0 1438.7 720 Output Total 700 900 Balance 1000 -700 538.7 720 Meds/Results Medications: Active Medications Generic Name Dose Route Start Last Admin Trade Name Freq PRN Reason Stop Dose Admin Amlodipine Besylate 5 mg 11/07/24 09:00 11/07/24 09:13 Amlodipine Besylate 5 Mg Tablet PO 5 mg DAILY PIERCE Administration Carbidopa/Levodopa 2 tablet 11/05/24 12:00 11/07/24 09:13 Carbidopa/Levodopa 25/100 Mg Tablet PO 2 tablet TIDWM PIERCE Administration Clonazepam 0.5 mg 11/05/24 21:00 11/06/24 21:56 Clonazepam (*Crx) 0.5 Mg Tablet PO 0.5 mg QHS PIERCE Administration Diclofenac Sodium 75 mg 11/06/24 17:00 11/07/24 09:13 Diclofenac Sod 75 Mg Tablet.Ec PO 75 mg BID PIERCE Administration Famotidine 20 mg 11/06/24 21:00 11/07/24 09:13 Famotidine 20 Mg Tablet PO 20 mg Q12HR PIRECE Administration Gabapentin 300 mg 11/06/24 17:00 11/07/24 09:12 Gabapentin 300 Mg Capsule PO 300 mg TID PIERCE Administration Hydralazine HCl 10 mg 11/05/24 06:00 Hydralazine Hcl 20 Mg/Ml Vial IV PUSH Q8H PRN Blood Pressure - High Melatonin 5 mg 11/06/24 21:00 11/06/24 21:57 Melatonin 5 Mg Tablet PO 5 mg HS PIERCE Administration Morphine Sulfate 2 mg 11/06/24 10:27 Morphine Sulfate (*Crx) 4 Mg/Ml Inj IV PUSH Q4H PRN Pain Rated 7-10 Ondansetron HCl 4 mg 11/05/24 06:02 Ondansetron Inj 4 Mg/2 Ml Vial IV PUSH Q4H PRN Nausea And Vomiting Radiology Results: ITS Impressions Abdomen/Pelvis CT 11/05/24 09:06 IMPRESSION: 1. Small bowel obstruction with transition point in the anterior abdomen. Abdomen X-Ray 11/06/24 08:52 IMPRESSION: 1. Nasogastric tube in stomach. No dilated loops of gas-filled bowel to suggest obstruction. Small Bowel X-Ray 11/06/24 12:18 IMPRESSION: 1. Normal small bowel follow-through with normal transit time of 30 minutes and no dilated bowel to suggest obstruction. Labs Labs: Laboratory Results - last 24 hr 11/06/24 11/06/24 11/06/24 13:25 16:28 20:11 WBC RBC Hgb Hct MCV MCH MCHC RDW Plt Count MPV Sodium Potassium Chloride Carbon Dioxide Anion Gap BUN Creatinine Estim Creat Clear Calc Estimated GFR Glucose POC Capillary Glucose 106 H 98 103 Calcium Total Bilirubin AST ALT Alkaline Phosphatase Total Protein Albumin 11/07/24 11/07/24 11/07/24 05:40 05:52 07:16 WBC 4.7 RBC 4.05 L Hgb 12.7 L Hct 39.5 L MCV 97.5 MCH 31.4 MCHC 32.2 RDW 12.8 Plt Count 212 MPV 10.1 Sodium 135 L Potassium 3.9 Chloride 101 Carbon Dioxide 29 Anion Gap 5 BUN 25 H Creatinine 1.10 Estim Creat Clear Calc 56 Estimated GFR > 60 Glucose 106 POC Capillary Glucose 100 100 Calcium 8.3 L Total Bilirubin 3.2 H AST 25 ALT 12 Alkaline Phosphatase 56 Total Protein 6.2 L Albumin 3.9
--- NOTE | 2024-11-07 13:51 | P.DS_ITS ---
DS: Admitting Diagnosis Discharge Date 11/07/2024 Admitting Diagnosis bowel obstruction CRD HTN Hyperglycemia Parkinsons DS: Discharge Diagnosis Discharge Diagnosis (1) Bowel obstruction: Code(s): K56.609 - Unspecified intestinal obstruction, unspecified as to partial versus complete obstruction Status: Acute (2) CRD (chronic renal disease), stage III: Qualifiers: Chronic kidney disease stage 3 subtype: unspecified whether 3a or 3b Qualified Code(s): N18.30 - Chronic kidney disease, stage 3 unspecified Code(s): N18.30 - Chronic kidney disease, stage 3 unspecified Status: Chronic (3) Essential (primary) hypertension: Code(s): I10 - Essential (primary) hypertension Status: Acute (4) Hyperglycemia: Code(s): R73.9 - Hyperglycemia, unspecified Status: Acute (5) Parkinson disease: Qualifiers: Dyskinesia presence: unspecified whether dyskinesia Fluctuating manifestations: unspecified whether manifestations fluctuate Qualified Code(s): G20.A1 - Parkinson's disease without dyskinesia, without mention of fluctuations Code(s): G20 - Parkinson's disease Status: Chronic DS: Summary Hospital Course Reason for hospitalization: bowel obstruction CRD HTN Hyperglycemia Parkinsons Hospital Course: 74 year old male with past medical history of parkinson disease, stomach cancer, hypertension and multiple abdominal surgeries (prostatectomy, hernia repair x2, and stomach surgery) presents to the hospital for abdominal pain. CT abdomen/pelvis showed SBO with transition point in the anterior abdomen. NG tube placed for bowel rest, xr to confirm placement. Surgery consulted. Repeat KUB on 11/06 showed NG in stomach, no dilated loops of gas filled bowel to suggest obstruction. Small bowel xr showed Normal small bowel follow-through with normal transit time of 30 minutes and no dilated bowel to suggest obstruction. NG tube removed and patient started on a diet. Prior to discharge patient was advanced back to a low fiber diet. Patient tolerated the diet well denying nausea/vomiting and abdominal pain. Patient had return of bowel movements prior to discharge as well. Patient stable for discharge from surgical standpoint. At time of discharge patient had no complaints denying chest pain, shortness a haydee th, palpitations, nausea/vomiting, and abdominal pain. Patient discharged home with family in a stable condition. He is to follow-up with his primary care provider in 1 week. Status at Discharge Functional status at discharge: independent ambulation Time Spent with Patient Time attestation: Total time spent providing and/or coordinating discharge services: Time spent: Greater than 30 minutes Exam Narrative: AF HR 69 RR 16 Spo2 96 BP 124/73 General: male in no acute respiratory distress who is nontoxic appearing, sitting up in chair eating lunch HEENT: Normocephalic. Atraumatic. Extraocular movement intact. Sclera clear and anicteric. No facial asymmetry. Chest: Lungs are clear to auscultation bilaterally. No wheezes or crackles. CV: Heart was regular rate and rhythm. Abd: Abdomen was soft. Nontender. Nondistended. Positive bowel sounds. DS: Data Data Completed and Pending Completed studies during hospitalization: small bowel xr abdomen xr abdomen xr abdomen xr abdomen xr abdomen xr abdomen/pelvis ct Labs on day of discharge: Labs from last 24 hours 11/07/24 11/07/24 11/07/24 11:14 07:16 05:52 WBC RBC Hgb Hct MCV MCH MCHC RDW Plt Count MPV Sodium Potassium Chloride Carbon Dioxide Anion Gap BUN Creatinine Estim Creat Clear Calc Estimated GFR Glucose POC Capillary Glucose 99 100 100 Calcium Total Bilirubin AST ALT Alkaline Phosphatase Total Protein Albumin 11/07/24 11/06/24 11/06/24 05:40 20:11 16:28 WBC 4.7 RBC 4.05 L Hgb 12.7 L Hct 39.5 L MCV 97.5 MCH 31.4 MCHC 32.2 RDW 12.8 Plt Count 212 MPV 10.1 Sodium 135 L Potassium 3.9 Chloride 101 Carbon Dioxide 29 Anion Gap 5 BUN 25 H Creatinine 1.10 Estim Creat Clear Calc 56 Estimated GFR > 60 Glucose 106 POC Capillary Glucose 103 98 Calcium 8.3 L Total Bilirubin 3.2 H AST 25 ALT 12 Alkaline Phosphatase 56 Total Protein 6.2 L Albumin 3.9 Discharge Plan Discharge Attending physician on discharge: Tyshawn Morris Consulting providers: Cassi Joshi Discharging Clinician: Cassi Joshi Anticipated Discharge Date/Time: 11/07/24 13:47 Patient Disposition: Home Activity: as tolerated Diet: as tolerated and low fiber Discharge Instructions: Discharge disposition: Patient admitted to the hospital for a small bowel obstruction Surgery evaluated and no surgical intervention required Patient underwent bowel rest and obstruction resolved Continue low fiber diet, attached is information on this diet Monitor blood pressures Take caution while standing, rising, or moving Change positions slowly taking a break between each position change If you standing feel dizzy sit back down and take a break Encouraged to continue with yearly vaccinations Return to the emergency department if he developed sudden shortness of breath, chest pain, nausea, vomiting, upset stomach or intractable diarrhea Return to the emergency department if you develop fever greater than 100.5 Follow-up with the primary care physician within 1-2 weeks Thank you for [facility] for your healthcare needs Patient Instructions: Low Fiber Diet (DC), Bowel Obstruction (DC) Patient Language: Persian Stand Alone Forms: General Discharge Information Follow-up/Referrals: Wilder Biggs DO [Primary Care Provider, Internal Medicine] - 1 Week Discharge Medications: Continued ciclopirox 8 % solution 1 applic topical QHS 28 Days Qty: 6.6 1RF gabapentin 300 mg capsule 300 mg PO TID Qty: 90 5RF carbidopa-levodopa [Sinemet] 25-100 mg tablet 2 tablet PO TID Qty: 180 5RF clonazepam [Klonopin] 0.5 mg tablet 0.5 mg PO QHS Qty: 90 1RF Rx Instructions: administer 30 minutes before bedtime melatonin 5 mg capsule 5 mg PO .HS amlodipine 5 mg tablet 5 mg PO DAILY Qty: 90 3RF diclofenac sodium 75 mg tablet,delayed release (DR/EC) 75 mg PO BID Qty: 180 1RF Rx Instructions: with food Date of admission: 11/05/24 01:52 Primary Care Provider: Wilder Biggs Admitting Provider: Mina Miranda Attending physician on admission: Mina Miranda Condition: Stable Hospitalist MIPS Heart Failure (Exclusion) Patient has history of Heart Transplant or Left Ventricular Assistive Device?: No IF YES, STOP HERE Heart Failure (Qualifier) Patient has current or prior documentation of LVEF less than or equal to 40%, or mod/servere depressed LVSF?: No IF NO, STOP HERE
[2024-11-07 14:00] VITALS: BP 105/53; PULSE 72; RESP 17; TEMP 36; O2SAT 100
== END 2024-11-07 14:30 | disposition home or self-care (01) | DRG 390 ==
LOC: ANHED 21:08 → ANH3MEDSUR 11-05 02:53
PROVIDERS: Nurse Practitioner; Surgery; Admitting Provider Internal Medicine; Emergency Provider Emergency Medicine; PCP Internal Medicine; Visit Provider Student in an Organized Health Care Education/Training Program
DX: K56.609 Unspecified intestinal obstruction, unspecified as to partial versus complete obstruction (principal); I12.9 Hypertensive chronic kidney disease with stage 1 through stage 4 chronic kidney disease, or unspecified chronic kidney disease; N18.30 Chronic kidney disease, stage 3 unspecified; G20.A1 Parkinson's disease without dyskinesia, without mention of fluctuations; R73.9 Hyperglycemia, unspecified; F17.210 Nicotine dependence, cigarettes, uncomplicated; F12.20 Cannabis dependence, uncomplicated; F10.20 Alcohol dependence, uncomplicated; Z85.028 Personal history of other malignant neoplasm of stomach; Z87.19 Personal history of other diseases of the digestive system; Z90.79 Acquired absence of other genital organ(s); Z85.09 Personal history of malignant neoplasm of other digestive organs; Z85.46 Personal history of malignant neoplasm of prostate
CPT/HCPCS: 36415; 74018; 74177; 74250; 80053; 81001; 82948; 83036; 83690; 84443; 85025; 85027; 96361; 96374; 96375; 99285; A9270; J2405; J2470; J7030; J7120; Q9967

== ENCOUNTER 2025-01-19 13:03 | Outpatient (CLI) | payer MEDICARE, SELFPAY ==
--- NOTE | ~2025-01-19 | XR_ITS ---
XR lumbar spine min 4V Indication: M54.16 - Radiculopathy, lumbar region Comparison: None Findings: Grade 1 retrolisthesis of L1 on L2, L2 on L3 and L3 on L4 with grade 1 anterolisthesis of L4 on L5. There is no fracture identified, no subluxation with flexion and extension Moderate to severe loss of disc height throughout. Soft tissues unremarkable Impression: No acute abnormality. Reviewed, dictated and finalized at location [facility]. [employer] [employer] Impression: No acute abnormality.
== END 2025-01-19 13:04 | disposition home or self-care (01) ==
LOC: MICIMG 13:05
PROVIDERS: PCP Internal Medicine; Visit Provider Neurological Surgery
DX: M43.16 Spondylolisthesis, lumbar region (principal); R29.890 Loss of height; M48.061 Spinal stenosis, lumbar region without neurogenic claudication
CPT/HCPCS: 72110

== ENCOUNTER 2025-02-06 08:56 | Outpatient (CLI) | payer MEDICARE, SELFPAY ==
--- NOTE | ~2025-02-06 | MR_ITS ---
EXAMINATION: MR lumbar spine wo con DATE: 02/06/2025 09:20 INDICATION: Low back pain. Radiculopathy, lumbar region. TECHNIQUE: Magnetic resonance imaging (MRI) of the lumbar spine was performed without intravenous contrast. COMPARISON: Lumbar spine MRI 04/30/2024 FINDINGS: There is 10 degrees dextroscoliosis of lumbar spine. There is 4 mm retrolisthesis of L1 on L2, 6 mm retrolisthesis of L2 on L3, 5 mm retrolisthesis of L3 on L4, and 6 mm anterolisthesis of L4 on L5. Vertebral body heights are normal. There is moderately decreased disc height at L1-L2, severely decreased disc height at L2-L3 and L3 on L4, moderately decreased disc height at L4-L5, and severely decreased disc height at L5-S1. The distal spinal cord signal intensity is normal. The conus medullaris is at L1. The following disc levels are specifically discussed: L1-L2: The disc is bulging. There is mild right and moderate left facet joint osteoarthritis. There is mild bilateral neural foraminal stenosis. There is mild central canal stenosis. L2-L3: The disc is bulging and has an annular fissure. There is moderate bilateral facet joint osteoarthritis. There is moderate bilateral neural foraminal stenosis. There is mild central canal stenosis. L3-L4: The disc is bulging and has an annular fissure. There is severe bilateral facet joint osteoarthritis. There is moderate bilateral neural foraminal stenosis. There is mild central canal stenosis. There is posterior decompression. L4-L5: The disc is bulging and has an annular fissure. There is severe bilateral facet joint osteoarthritis. There is mild bilateral neural foraminal stenosis. There is mild central canal stenosis. L5-S1: The disc is bulging and has an annular fissure. There is severe bilateral facet joint osteoarthritis. There is mild bilateral neural foraminal stenosis. There is mild central canal stenosis. IMPRESSION: 1. Severe lumbar spondylosis with interval posterior decompression at L3-L4. Reviewed, dictated and finalized at location E. [facility]
== END 2025-02-06 08:57 | disposition home or self-care (01) ==
LOC: MICIMG 08:56
PROVIDERS: PCP Neurological Surgery; Visit Provider Neurological Surgery
DX: M47.816 Spondylosis without myelopathy or radiculopathy, lumbar region (principal); Z98.890 Other specified postprocedural states; M48.061 Spinal stenosis, lumbar region without neurogenic claudication
CPT/HCPCS: 72148